=== PATIENT | female | born 1955 | race Caucasian/White ===

== ENCOUNTER 2016-02-18 | Outpatient (CLI) | payer MEDICAID | END 2016-02-18 07:18 | disposition critical access hospital (66) | DX: R07.89 Other chest pain (principal) | CPT/HCPCS: A0425; A0429 ==

== ENCOUNTER 2016-02-18 07:35 | Emergency (ER) | payer MEDICAID ==
[2016-02-18] MEDS ORDERED: POTASSIUM BICARB 25 MEQ TABLET PO STA (08:39)
[2016-02-18] MEDS ORDERED: POTASSIUM BICARB 25 MEQ TABLET PO ONE (08:42)
[2016-02-18] MEDS ORDERED: SODIUM CHLORIDE 0.9% 1,000 ML IV ONE (08:43)
== END 2016-02-18 12:56 | disposition home or self-care (01) ==
DX: E86.0 Dehydration (principal); Z95.0 Presence of cardiac pacemaker; I10 Essential (primary) hypertension; E11.9 Type 2 diabetes mellitus without complications; Z79.84 Long term (current) use of oral hypoglycemic drugs; J44.9 Chronic obstructive pulmonary disease, unspecified; J45.909 Unspecified asthma, uncomplicated; Z79.82 Long term (current) use of aspirin
CPT/HCPCS: 36415; 51701; 71020; 80053; 81001; 83690; 84484; 85025; 93005; 93010; 99284; A9270

== ENCOUNTER 2016-02-25 10:53 | Outpatient (CLI) | payer MEDICAID | END 2016-02-25 10:54 | disposition home or self-care (01) | DX: E11.9 Type 2 diabetes mellitus without complications (principal) ==

== ENCOUNTER 2016-02-29 10:57 | Emergency (ER) | payer MEDICAID ==
[2016-02-29] MEDS ORDERED: ALBUTEROL NEB 2.5 MG/3 ML INH STA (12:20)
[2016-02-29] MEDS ORDERED: predniSONE 20 MG TABLET PO STA (12:21)
[2016-02-29] MEDS ORDERED: predniSONE 20 MG TABLET ONE (12:21)
[2016-02-29] MEDS ORDERED: ALBUTEROL NEB 2.5 MG/3 ML INH ONE (12:41)
== END 2016-02-29 13:01 | disposition home or self-care (01) ==
DX: J45.901 Unspecified asthma with (acute) exacerbation (principal); J44.9 Chronic obstructive pulmonary disease, unspecified; I10 Essential (primary) hypertension; Z95.0 Presence of cardiac pacemaker; E11.9 Type 2 diabetes mellitus without complications; Z79.84 Long term (current) use of oral hypoglycemic drugs; Z79.82 Long term (current) use of aspirin
CPT/HCPCS: 94640; 99283; J7512; J7613

== ENCOUNTER 2016-07-19 19:45 | Outpatient (CLI) | payer MEDICAID | END 2016-07-19 19:46 | disposition EMS.NT | LOC: EMS 19:45 | PROVIDERS: ATTEND Surgery | DX: S01.511A Laceration without foreign body of lip, initial encounter (principal); W01.198A Fall on same level from slipping, tripping and stumbling with subsequent striking against other object, initial encounter; Y92.038 Other place in apartment as the place of occurrence of the external cause ==

== ENCOUNTER 2016-07-29 09:53 | Outpatient (CLI) | payer MEDICAID | END 2016-07-29 09:54 | disposition critical access hospital (66) | LOC: EMS 09:53 | PROVIDERS: ATTEND Surgery | DX: R07.9 Chest pain, unspecified (principal); R06.00 Dyspnea, unspecified | CPT/HCPCS: A0425; A0429 ==

== ENCOUNTER 2016-07-29 10:15 | Emergency (ER) | payer MEDICAID ==
[2016-07-29] MEDS ORDERED: ASPIRIN CHEW 81 MG TABLET PO STA (10:27)
[2016-07-29] MEDS ORDERED: MAG HYDROX/AL HYDROX/SIMETH 30 ML UDC PO STA (10:28)
[2016-07-29] MEDS ORDERED: PHENobarb/HYOSCY/ATROPINE/SCOP 5 ML SYRINGE PO STA (10:28)
[2016-07-29] MEDS ORDERED: LIDOCAINE VISCOUS 2% 15 ML UDC MM STA (10:28)
[2016-07-29] MEDS ORDERED: PHENobarb/HYOSCY/ATROPINE/SCOP 5 ML SYRINGE PO ONE (10:32)
[2016-07-29] MEDS ORDERED: LIDOCAINE VISCOUS 2% 15 ML UDC MM ONE (10:32)
--- NOTE | 2016-07-29 10:32 | ED Physician Documentation ---
PD HPI CHEST PAIN - Stated complaint Stated Complaint: CP - Chief complaint Chief Complaint: Cardiac - History obtained from History obtained from: Patient, EMS - History of Present Illness Timing - onset: Last night Quality: Pain Location: Right chest Worsened by: Inspiration Associated symptoms: Shortness of air, Nausea Similar symptoms before: Has not had sx before - Additional information Additional information: The patient is a 60-year-old female who arrives via ambulance complaining of right-sided chest pain. She fell 1 week ago, bruising her right breast. She presents now complaining of ongoing right-sided chest pain that has been worse since last night. The pain is worse with inspiration. She reports associated shortness of breath and nausea. She denies vomiting, cough, or fever. She denies history of similar symptoms in the past. Her past medical history is significant for pacer placement. Review of Systems Constitutional: reports: Fatigue. denies: Fever Nose: denies: Congestion Throat: denies: Sore throat Cardiac: reports: Chest pain / pressure. denies: Palpitations Respiratory: reports: Dyspnea. denies: Cough GI: reports: Nausea. denies: Abdominal Pain, Vomiting : denies: Dysuria Skin: denies: Rash Musculoskeletal: denies: Neck pain, Back pain Neurologic: denies: Focal weakness, Numbness, Headache PD PAST MEDICAL HISTORY - Past Medical History Cardiovascular: Hypertension, High cholesterol Respiratory: Asthma, COPD, Sleep apnea Neuro: Other Endocrine/Autoimmune: Type 2 diabetes GI: GERD, Chronic diarrhea : Incontinence HEENT: Chronic vision loss Psych: Depression, Anxiety, Panic attacks, Claustrophobia Musculoskeletal: Osteoarthritis Derm: None - Past Surgical History Past Surgical History: Yes General: Cholecystectomy, Colonoscopy Cardiovascular: Pacemaker - Present Medications Home Medications: Ambulatory Orders Medication Instructions Recorded Confirmed Aspirin [Aspir-Low] 1 tab PO DAILY 09/08/15 07/29/16 Estradiol 1 tab PO DAILY 09/08/15 07/29/16 Hydrochlorothiazide 0.5 tab PO DAILY 09/08/15 07/29/16 Pravastatin [Pravachol] 1 tab PO DAILY PM 09/08/15 07/29/16 buPROPion [Wellbutrin Sr] 1 tab PO DAILY 09/08/15 07/29/16 medroxyPROGESTERone [Provera] 1 tab PO DAILY 09/08/15 07/29/16 metFORMIN [Glucophage] 2 tab PO BID 09/08/15 07/29/16 Potassium Chloride [Micro-K] 20 meq PO DAILY 10/15/15 07/29/16 Albuterol Sulfate [Proventil Hfa 1 - 2 puffs IH Q4H PRN #1 02/29/16 07/29/16 Inhaler] hfa.[email or web address].[email or web address] predniSONE [Deltasone] 60 mg PO DAILY 5 Days 02/29/16 07/29/16 - Allergies Allergies/Adverse Reactions: Allergies Allergy/AdvReac Type Severity Reaction Status Date / Time No Known Drug Allergies Allergy Verified 07/29/16 10:21 - Social History Does the pt smoke?: No Smoking Status: Never smoker Does the pt drink ETOH?: No Does the pt have substance abuse?: No - Immunizations Immunizations are current?: Yes PD ED PE NORMAL - Vitals Vital signs reviewed: Yes (normal) - General General: Alert and oriented X 3, Well developed/nourished - HEENT HEENT: Atraumatic, EOMI - Neck Neck: No adenopathy, No JVD - Cardiac Cardiac: RRR, No murmur - Respiratory Respiratory: No respiratory distress, Clear bilaterally, Other (There is faint ecchymosis over the right breast. There is tenderness to palpation of the right anterior chest wall, reproducing her symptoms.) - Abdomen Abdomen: Soft, Other (Mild epigastric tenderness to palpation, without rebound or guarding.) - Back Back: No CVA TTP - Derm Derm: No rash - Extremities Extremities: No edema, No calf tenderness / cord - Neuro Neuro: Alert and oriented X 3, No motor deficit, Normal speech Results - Vitals Vitals: Oxygen O2 Source Room air - EKG (time done) 10:24 Rate: Rate (enter#) (78) Rhythm: NSR [place]: Normal Intervals: Normal [place] QRS: Normal Ischemia: Normal ST segments Compare to prior EKG: Unchanged from prior EKG (No significant change compared to prior tracing of 02/18/2016.) Computer interpretation: Agree with computer - Labs Labs: Laboratory Tests 07/29/16 07/29/16 07/29/16 10:25 10:25 10:25 WBC 10.4 RBC 4.24 Hgb 12.0 Hct 35.8 L MCV 84.5 MCH 28.4 MCHC 33.6 RDW 13.4 Plt Count 416 MPV 7.1 L Neut # 6.6 Lymph # 2.7 [place] # 0.7 Eos # 0.3 Baso # 0.1 Absolute Nucleated RBC 0.00 Nucleated RBCs 0.0 Sodium 138 Potassium 3.8 Chloride 99 L Carbon Dioxide 28 Anion Gap 11.0 BUN 17 Creatinine 1.0 Estimated GFR (MDRD) 57 L Glucose 179 H Calcium 9.2 Total Bilirubin 0.5 AST 19 ALT 18 Alkaline Phosphatase 96 Troponin I < 0.04 Total Protein 7.6 Albumin 3.8 Globulin 3.8 Albumin/Globulin Ratio 1.0 Lipase 34 - Rads (name of study) 1-view CXR Radiology: Prelim report reviewed, EMP read contemporaneously, See rad report ( No airspace disease evident.) PD MEDICAL DECISION MAKING - ED course Complexity details: reviewed old records, reviewed results, re-evaluated patient , considered differential, d/w patient ED course: The patient's presentation is most consistent with chest wall pain associated with falling, impacting her chest. Cardiac etiology was considered, but is less likely. Her electrocardiogram reveals no acute ischemic abnormalities, and troponin level is normal. Given the duration of her symptoms, I would expect troponin to be elevated if the pain was caused by cardiac ischemia. Gastroesophageal reflux was considered, given the mild epigastric tenderness to palpation. However given her overall clinical presentation, that is also a less likely etiology. Chest x-ray reveals no evidence of cardiopulmonary radiographic abnormality. Treatment in the emergency department included administration of 4 baby aspirin orally, and GI cocktail. The patient reported no significant change with the above treatment, and on repeat examination her right chest wall remains reproducibly tender to palpation. I discussed with her the expected course of injury, symptomatic treatment and outpatient follow-up, as well as potentially worrisome signs or symptoms that should prompt reevaluation in the emergency department. Departure - Departure Disposition: 01 Home, Self Care Clinical Impression: Chest wall pain Condition: Stable Instructions: ED Contusion Chest Wall Follow-Up: Aquilino Isabel MD [Primary Care Provider] - Comments: Use Tylenol if needed for pain. Follow up with your primary physician within one to 2 weeks. Call to schedule an appointment. Return to the emergency department if you develop increasing pain, shortness of breath, or otherwise worsening symptoms. Discharge Date/Time: 07/29/16 13:00
[2016-07-29] MEDS ORDERED: ASPIRIN CHEW 81 MG TABLET ONE (10:33)
[2016-07-29] MEDS ORDERED: MAG HYDROX/AL HYDROX/SIMETH 30 ML UDC ONE (10:33)
[2016-07-29 10:36] LABS: BASOPHILS # (AUTO) 0.1 10^3/uL (0.0-0.1); BASOPHILS % (AUTO) 1.3 %; EOSINOPHILS # (AUTO) 0.3 10^3/uL (0.0-0.7); EOSINOPHILS % (AUTO) 2.9 %; HCT - HEMATOCRIT 35.8 % (37.0-47.0); LYMPHOCYTES # (AUTO) 2.7 10^3/uL (1.5-3.5); LYMPHOCYTES % (AUTO) 26.3 %; MEAN CORPUSCULAR HEMOGLOBIN 28.4 pg (27.0-31.0); MEAN CORPUSCULAR HGB CONC 33.6 g/dL (32.0-36.0); MEAN CORPUSCULAR VOLUME 84.5 fL (81.0-99.0); MEAN PLATELET VOLUME 7.1 fL (7.9-10.8); MONOCYTES # (AUTO) 0.7 10^3/uL (0.0-1.0); MONOCYTES % (AUTO) 6.4 %; NEUTROPHILS # (AUTO) 6.6 10^3/uL (1.5-6.6); NEUTROPHILS % (AUTO) 63.1 %; RED BLOOD COUNT 4.24 10^6/uL (4.20-5.40); RED CELL DISTRIBUTION WIDTH 13.4 % (12.0-15.0); UNCORRECTED WHITE BLOOD COUNT 10.4 x10^3/uL; WHITE BLOOD COUNT 10.4 x10^3/uL (4.8-10.8)
[2016-07-29 10:50] LABS: BILIRUBIN,TOTAL 0.5 mg/dL (0.2-1.0); CALCIUM 9.2 mg/dL (8.5-10.3); POTASSIUM 3.8 mmol/L (3.5-5.0); TOTAL PROTEIN 7.6 g/dL (6.7-8.2)
--- NOTE | 2016-07-29 10:55 | XRAY Preliminary Report ---
Exam: XR Chest 1 View IMPRESSION: No airspace disease evident. [facility] SITE ID: [id number]
--- NOTE | 2016-07-29 10:57 | XRAY Report ---
EXAM: CHEST RADIOGRAPHY EXAM DATE: 07/29/2016 10:47 AM. CLINICAL HISTORY: Anterior chest pain. COMPARISON: 02/18/2016. TECHNIQUE: 1 view. FINDINGS: Lungs/Pleura: No focal opacities evident. No pleural effusion. No pneumothorax. Mediastinum: Within exam limitations, cardiomediastinal contour is normal. Other: Left subclavian pacemaker. IMPRESSION: No airspace disease evident. [facility] Referring Provider Line: [phone] SITE ID: [id number]
[2016-07-29 13:28] VITALS: BP 142/77
== END 2016-07-29 13:00 | disposition home or self-care (01) ==
LOC: EDUNIT# → ED 10:15
DX: R07.89 Other chest pain (principal); W19.XXXA Unspecified fall, initial encounter; K21.9 Gastro-esophageal reflux disease without esophagitis; Z95.0 Presence of cardiac pacemaker; I10 Essential (primary) hypertension; E11.9 Type 2 diabetes mellitus without complications; Z79.84 Long term (current) use of oral hypoglycemic drugs; J44.9 Chronic obstructive pulmonary disease, unspecified; Z79.82 Long term (current) use of aspirin
CPT/HCPCS: 36415; 71010; 80053; 83690; 84484; 85025; 93005; 99284; A9270

== ENCOUNTER 2017-01-27 08:04 | Outpatient (CLI) | payer MEDICAID ==
[2017-01-27 13:23] LABS: BUN - BLOOD UREA NITROGEN 18 mg/dL (6-20); CALCIUM 9.4 mg/dL (8.5-10.3); CARBON DIOXIDE - CO2 30 mmol/L (21-32); CHLORIDE 96 mmol/L (101-111); CHOL/HDL RATIO 5.6 (<4.4); CHOLESTEROL 284 mg/dL; CREATININE 0.9 mg/dL (0.4-1.0); GFR - MDRD 64 (>89); GLUCOSE 132 mg/dL (70-100); HDL CHOLESTEROL 51 mg/dL; LDL/HDL RATIO 3.6 (<4.4); POTASSIUM 3.4 mmol/L (3.5-5.0); SODIUM 137 mmol/L (135-145); TRIGLYCERIDES 257 mg/dL; VLDL CHOLESTEROL 51 mg/dL
== END 2017-01-27 08:05 | disposition home or self-care (01) ==
LOC: LAB.N 08:04
PROVIDERS: ATTEND Internal Medicine Cardiovascular Disease
DX: I10 Essential (primary) hypertension (principal); E78.5 Hyperlipidemia, unspecified
CPT/HCPCS: 36415; 80048; 80061

== ENCOUNTER 2017-04-25 08:44 | Outpatient (CLI) | payer MEDICAID ==
[2017-04-25 13:00] LABS: HEMOGLOBIN A1C 0.99 g/dL; HEMOGLOBIN A1C % 8.6 % (4.6-6.2)
[2017-04-25 13:10] LABS: CALCIUM 9.4 mg/dL (8.5-10.3); CREATININE 0.8 mg/dL (0.4-1.0)
== END 2017-04-25 08:45 | disposition home or self-care (01) ==
LOC: LAB.N 08:44
PROVIDERS: ATTEND Family Medicine
DX: E11.9 Type 2 diabetes mellitus without complications (principal)
CPT/HCPCS: 36415; 80048; 83036

== ENCOUNTER 2017-04-30 12:04 | Emergency (ER) | payer MEDICAID ==
[2017-04-30 12:49] LABS: ALBUMIN 4.2 g/dL (3.2-5.5); BILIRUBIN,TOTAL 0.4 mg/dL (0.2-1.0); CALCIUM 9.1 mg/dL (8.5-10.3); CREATININE 1.2 mg/dL (0.4-1.0); TOTAL PROTEIN 8.3 g/dL (6.7-8.2)
--- NOTE | 2017-04-30 12:55 | ED Physician Documentation ---
PD HPI CHEST PAIN - Stated complaint Stated Complaint: CP/N/DIFF BREATHING - Chief complaint Chief Complaint: Resp - History obtained from History obtained from: Patient - History of Present Illness Timing - onset: Other (The last 4 days she has had constant but increasing anterior chest pain that is nonradiating, it is associated with shortness of breath and nausea and dizziness. She denies any pedal edema or back pain. There is no cough.) Review of Systems Constitutional: denies: Fever, Chills Nose: denies: Rhinorrhea / runny nose, Congestion Throat: denies: Sore throat Cardiac: reports: Chest pain / pressure. denies: Palpitations, Pedal edema, Calf pain Respiratory: reports: Dyspnea. denies: Cough, Hemoptysis, Wheezing PD PAST MEDICAL HISTORY - Past Medical History Cardiovascular: Hypertension, High cholesterol Respiratory: Asthma, COPD, Sleep apnea Neuro: Other Endocrine/Autoimmune: Type 2 diabetes GI: GERD, Chronic diarrhea : Incontinence HEENT: Chronic vision loss Psych: Depression, Anxiety, Panic attacks, Claustrophobia Musculoskeletal: Osteoarthritis Derm: None - Past Surgical History Past Surgical History: Yes General: Cholecystectomy, Colonoscopy Cardiovascular: Pacemaker - Present Medications Home Medications: Ambulatory Orders Medication Instructions Recorded Confirmed Aspirin [Aspir-Low] 1 tab PO DAILY 09/08/15 07/29/16 Estradiol 1 tab PO DAILY 09/08/15 07/29/16 Pravastatin [Pravachol] 1 tab PO DAILY PM 09/08/15 07/29/16 buPROPion [Wellbutrin Sr] 1 tab PO DAILY 09/08/15 07/29/16 hydroCHLOROthiazide 0.5 tab PO DAILY 09/08/15 07/29/16 [Hydrochlorothiazide] medroxyPROGESTERone [Provera] 1 tab PO DAILY 09/08/15 07/29/16 metFORMIN [Glucophage] 2 tab PO BID 09/08/15 07/29/16 Potassium Chloride [Micro-K] 20 meq PO DAILY 10/15/15 07/29/16 Albuterol Sulfate [Proventil Hfa 1 - 2 puffs IH Q4H PRN #1 02/29/16 07/29/16 Inhaler] hfa.aer.ad predniSONE [Deltasone] 60 mg PO DAILY 5 Days tablet 02/29/16 07/29/16 Azithromycin [Zithromax] 250 mg PO DAILY #4 tablet 04/30/17 - Allergies Allergies/Adverse Reactions: Allergies Allergy/AdvReac Type Severity Reaction Status Date / Time No Known Drug Allergies Allergy Verified 04/30/17 12:13 - Living Situation Living Situation: reports: Alone - Social History Does the pt smoke?: No Smoking Status: Never smoker Does the pt drink ETOH?: No Does the pt have substance abuse?: No - Immunizations Immunizations are current?: Yes PD ED PE NORMAL - Vitals Vital signs reviewed: Yes - General General: Alert and oriented X 3, No acute distress - HEENT HEENT: PERRL, EOMI - Neck Neck: Supple, no meningeal sign, No bony TTP - Cardiac Cardiac: RRR, No murmur - Respiratory Respiratory: No respiratory distress, Clear bilaterally - Abdomen Abdomen: Soft, Non tender - Back Back: No CVA TTP, No spinal TTP - Derm Derm: No rash - Extremities Extremities: No edema, No calf tenderness / cord - Neuro Neuro: Alert and oriented X 3, Normal speech Results - Vitals Vitals: Vital Signs - 24 hr 04/30/17 04/30/17 12:10 14:21 Temperature 35.5 C L Heart Rate 97 90 Respiratory 16 18 Rate Blood Pressure 125/77 132/76 H O2 Saturation 100 97 Oxygen O2 Source Room air - EKG (time done) 1211 Rate: Rate (enter#) (97) Rhythm: NSR [place]: Normal Intervals: Normal [place] QRS: Normal Ischemia: Normal ST segments Compare to prior EKG: Unchanged from prior EKG (from 07/29/16) Computer interpretation: Agree with computer - Labs Labs: Laboratory Tests 04/30/17 04/30/17 04/30/17 12:30 12:30 13:05 WBC 11.8 H RBC 4.41 Hgb 12.7 Hct 37.4 MCV 84.9 MCH 28.7 MCHC 33.8 RDW 12.8 Plt Count 336 MPV 8.0 Neut # 8.3 H Lymph # 2.5 [place] # 0.9 Eos # 0.1 Baso # 0.1 Absolute Nucleated RBC 0.00 Nucleated RBC % 0.0 D-Dimer Sodium 133 L Potassium 3.5 Chloride 95 L Carbon Dioxide 25 Anion Gap 13.0 BUN 25 H Creatinine 1.2 H Estimated GFR (MDRD) 46 L Glucose 206 H Calcium 9.1 Total Bilirubin 0.4 AST 26 ALT 19 Alkaline Phosphatase 91 Troponin I < 0.04 Total Protein 8.3 H Albumin 4.2 Globulin 4.1 Albumin/Globulin Ratio 1.0 Lipase 23 04/30/17 13:05 WBC RBC Hgb Hct MCV MCH MCHC RDW Plt Count MPV Neut # Lymph # [place] # Eos # Baso # Absolute Nucleated RBC Nucleated RBC % D-Dimer 221.3 Sodium Potassium Chloride Carbon Dioxide Anion Gap BUN Creatinine Estimated GFR (MDRD) Glucose Calcium Total Bilirubin AST ALT Alkaline Phosphatase Troponin I Total Protein Albumin Globulin Albumin/Globulin Ratio Lipase - Rads (name of study) 1v chest Radiology: EMP read contemporaneously (1. Increased right hilar and superior parahilar opacity. Atelectasis or infiltrate involving right upper lobe? Mild increased vasc prominence.) PD MEDICAL DECISION MAKING - ED course ED course: 61-year-old woman with very atypical chest pain and trouble breathing that is most likely related to right upper lobe pneumonia seen on x-ray. Departure - Departure Disposition: 01 Home, Self Care Clinical Impression: Chest wall pain Pneumonia Qualifiers: Pneumonia type: due to unspecified organism Laterality: right Lung location: upper lobe of lung Qualified Code(s): J18.1 - Lobar pneumonia, unspecified organism Condition: Good Record reviewed to determine appropriate education?: Yes Instructions: Pneumonia Dc Prescriptions: Azithromycin [Zithromax] 250 mg PO DAILY #4 tablet Comments: Call your doctor to arrange a follow-up appointment, make the next available appointment. In the interim, return anytime if worse or if new symptoms develop. Your blood pressure was elevated today on check into the emergency department. This does not mean that you have hypertension, it is a common phenomenon to come to the emergency department and have elevated blood pressure. I recommend that you see your primary care physician within the week to have it rechecked when you are feeling better.
--- NOTE | 2017-04-30 13:02 | XRAY Report ---
EXAM: CHEST RADIOGRAPHY EXAM DATE: 04/30/2017 12:41 PM. CLINICAL HISTORY: Chest pain. COMPARISON: 02/18/2016. TECHNIQUE: 1 view. FINDINGS: Lungs/Pleura: Interval increase in right upper hilar and upper lobe medial opacity. No other focal co nsolidation. Pulmonary vascularity is slightly more prominent than on prior study without gross inter stitial edema. No airspace edema or pleural effusion. No pneumothorax. No mass. Mediastinum: Heart size upper limits normal. No adenopathy. Other: Left-sided pacemaker with intact pacing leads. IMPRESSION: 1. Increased right hilar and superior parahilar opacity. Atelectasis or infiltrate involving right up per lobe could've this appearance. 2. Mild interval increase in pulmonary vascular prominence. No gross interstitial or airspace edema. No pleural effusion. 3. No other significant interval change. [facility] Referring Provider Line: [phone] SITE ID: [id number]
--- NOTE | 2017-04-30 13:02 | XRAY Preliminary Report ---
Exam: XR CHEST 1 VIEW X-RAY IMPRESSION: 1. Increased right hilar and superior parahilar opacity. Atelectasis or infiltrate involving right up per lobe could've this appearance. 2. Mild interval increase in pulmonary vascular prominence. No gross interstitial or airspace edema. No pleural effusion. 3. No other significant interval change. [facility] SITE ID: [id number]
[2017-04-30 13:11] LABS: BASOPHILS # (AUTO) 0.1 10^3/uL (0.0-0.1); BASOPHILS % (AUTO) 0.4 %; EOSINOPHILS # (AUTO) 0.1 10^3/uL (0.0-0.7); HGB - HEMOGLOBIN 12.7 g/dL (12.0-16.0); LYMPHOCYTES # (AUTO) 2.5 10^3/uL (1.5-3.5); LYMPHOCYTES % (AUTO) 21.3 %; MEAN CORPUSCULAR HEMOGLOBIN 28.7 pg (27.0-31.0); MEAN CORPUSCULAR HGB CONC 33.8 g/dL (32.0-36.0); MEAN CORPUSCULAR VOLUME 84.9 fL (81.0-99.0); MONOCYTES # (AUTO) 0.9 10^3/uL (0.0-1.0); MONOCYTES % (AUTO) 7.2 %; NEUTROPHILS # (AUTO) 8.3 10^3/uL (1.5-6.6); NEUTROPHILS % (AUTO) 70.1 %; PLT - PLATELET COUNT 336 10^3/uL (130-450); RED BLOOD COUNT 4.41 10^6/uL (4.20-5.40); RED CELL DISTRIBUTION WIDTH 12.8 % (12.0-15.0); WHITE BLOOD COUNT 11.8 x10^3/uL (4.8-10.8)
[2017-04-30] MEDS ORDERED: AZITHROMYCIN 250 MG TABLET PO STA (14:23)
[2017-04-30 14:48] VITALS: BP 129/79
== END 2017-04-30 14:50 | disposition home or self-care (01) ==
LOC: ED 12:04
DX: R07.89 Other chest pain (principal); I10 Essential (primary) hypertension; E78.00 Pure hypercholesterolemia, unspecified; E11.9 Type 2 diabetes mellitus without complications; Z79.84 Long term (current) use of oral hypoglycemic drugs; Z95.0 Presence of cardiac pacemaker; Z79.82 Long term (current) use of aspirin
CPT/HCPCS: 36415; 71045; 80053; 83690; 84484; 85025; 85379; 93005; 99283; 99284; A9270

== ENCOUNTER 2018-01-19 07:52 | Outpatient (CLI) | payer MEDICAID ==
[2018-01-19 13:18] LABS: BASOPHILS # (AUTO) 0.1 10^3/uL (0.0-0.1); BASOPHILS % (AUTO) 0.7 %; EOSINOPHILS # (AUTO) 0.3 10^3/uL (0.0-0.7); EOSINOPHILS % (AUTO) 2.5 %; HGB - HEMOGLOBIN 12.7 g/dL (12.0-16.0); LYMPHOCYTES # (AUTO) 2.6 10^3/uL (1.5-3.5); MEAN CORPUSCULAR HEMOGLOBIN 29.3 pg (27.0-31.0); MEAN CORPUSCULAR HGB CONC 34.3 g/dL (32.0-36.0); MEAN CORPUSCULAR VOLUME 85.6 fL (81.0-99.0); MEAN PLATELET VOLUME 8.2 fL (7.9-10.8); MONOCYTES # (AUTO) 0.8 10^3/uL (0.0-1.0); MONOCYTES % (AUTO) 8.4 %; NEUTROPHILS # (AUTO) 6.3 10^3/uL (1.5-6.6); NEUTROPHILS % (AUTO) 62.4 %; PLT - PLATELET COUNT 408 10^3/uL (130-450); RED BLOOD COUNT 4.34 10^6/uL (4.20-5.40)
[2018-01-19 13:54] LABS: HB2 TOTAL 13.1 g/dL; HEMOGLOBIN A1C 0.73 g/dL; HEMOGLOBIN A1C % 7.3 % (4.6-6.2)
[2018-01-19 14:10] LABS: ALBUMIN 4.1 g/dL (3.2-5.5); ALKALINE PHOSPHATASE 104 IU/L (42-121); ALT ALANINE AMINOTRANSFERASE 20 IU/L (10-60); AST ASPARTATE AMINOTRANSFERASE 17 IU/L (10-42); BILIRUBIN,TOTAL 0.4 mg/dL (0.2-1.0); BUN - BLOOD UREA NITROGEN 13 mg/dL (6-20); CALCIUM 9.6 mg/dL (8.5-10.3); CARBON DIOXIDE - CO2 29 mmol/L (21-32); CHLORIDE 99 mmol/L (101-111); CHOL/HDL RATIO 4.8 (<4.4); CHOLESTEROL 258 mg/dL; GFR - MDRD 56 (>89); GLUCOSE 152 mg/dL (70-100); HDL CHOLESTEROL 54 mg/dL; LDL CHOLESTEROL,CALCULATED 131 mg/dL; LDL/HDL RATIO 2.4 (<4.4); SODIUM 139 mmol/L (135-145); TOTAL PROTEIN 8.1 g/dL (6.7-8.2); VLDL CHOLESTEROL 73 mg/dL
== END 2018-01-19 23:59 | disposition home or self-care (01) ==
LOC: LAB.N 07:52
PROVIDERS: ATTEND Family Medicine
DX: E78.5 Hyperlipidemia, unspecified (principal); I10 Essential (primary) hypertension; E11.9 Type 2 diabetes mellitus without complications; E55.9 Vitamin D deficiency, unspecified
CPT/HCPCS: 36415; 80053; 80061; 82306; 83036; 83721; 85025

== ENCOUNTER 2018-04-08 08:53 | Observation (INO) | payer MEDICAID ==
[2018-04-08] MEDS ORDERED: SODIUM CHLORIDE 0.9% 1,000 ML IV ONE (09:34)
[2018-04-08] MEDS ORDERED: DEXTROSE 50% ABBOJECT 25 GM/50 ML SYRINGE IVP STA ×4 (09:34→14:54)
--- NOTE | 2018-04-08 09:38 | ED Physician Documentation ---
PD HPI ALTERED MENTAL STATUS - Stated complaint Stated Complaint: AMS - Chief complaint Chief Complaint: Neuro - History obtained from History obtained from: Patient, Family (her son checked on her today and noted that she seemed confused and generally weak. Patient said she had not felt well the past several days and had not eaten well. Son had not seen her for about a week as he was busy at work.) - History of Present Illness Timing - onset: How many days ago (several) Timing - duration: Days (several) Timing - details: Gradual onset (The patient states she has not felt well for the last several days with general malaise, nausea, chills and less appetite. She states she had not eaten much. She states there was not much food in the house as well. She typically does her own cooking and shopping. Her son lives in the area but does not check on her daily. He had not seen her for about a week. He saw her today and noted that she was confused and had general weakness in the house looked unkempt.) Quality / character: Less responsive, Confused Associated symptoms: General weakness, Other (less appatite). No: Fever, Headache, Stiff neck, Dyspnea Contributing factors: Diabetic, Recent illness (She has not felt well for the last several days with myalgias and fatigue. She denies fevers per se but has felt chilled. She has had some nausea and less appetite without any vomiting. Some loose stool but no significant diarrhea. She states she has not felt hu ngry for several days and is eating less and had less fluids. She had still taken her medications.). No: Anticoagulated, Recent med change Basline status: Alert and oriented X 3, Ambulatory Similar symptoms before: Has not had sx before Recently seen: Not recently seen Review of Systems Constitutional: reports: Chills, Myalgias, Fatigue, Other (She had apparently fallen yesterday and has some abrasion on her left hand. She denies any headache or head injury.). denies: Fever Nose: denies: Rhinorrhea / runny nose, Congestion Throat: denies: Sore throat GI: reports: Nausea, Diarrhea (mild). denies: Vomiting : denies: Dysuria, Frequency Skin: denies: Rash, Lesions Musculoskeletal: denies: Extremity pain Neurologic: reports: Generalized weakness. denies: Focal weakness, Numbness, Near syncope, Headache PD PAST MEDICAL HISTORY - Past Medical History Cardiovascular: Hypertension, High cholesterol Respiratory: Asthma, COPD, Sleep apnea Endocrine/Autoimmune: Type 2 diabetes GI: GERD, Chronic diarrhea : Incontinence HEENT: Chronic vision loss Psych: Depression, Anxiety, Panic attacks, Claustrophobia Musculoskeletal: Osteoarthritis Derm: None - Past Surgical History Past Surgical History: Yes General: Cholecystectomy, Colonoscopy Cardiovascular: Pacemaker - Present Medications Home Medications: Ambulatory Orders Medication Instructions Recorded Confirmed Aspirin [Aspir-Low] 81 mg PO DAILY 09/08/15 04/08/18 Pravastatin [Pravachol] 40 mg PO QPM 09/08/15 04/08/18 buPROPion [Wellbutrin Sr] 150 mg PO BID 09/08/15 04/08/18 metFORMIN [Glucophage] 1,000 mg PO BIDWM 09/08/15 04/08/18 Potassium Chloride [Micro-K] 10 meq PO DAILY 10/15/15 04/08/18 Albuterol Sulfate [Proventil Hfa 2 puffs INH Q4H PRN 04/08/18 04/08/18 Inhaler] Venlafaxine HCl [Venlafaxine HCl 150 mg PO DAILY 04/08/18 04/08/18 ER] hydroCHLOROthiazide 25 mg PO DAILY 04/08/18 04/08/18 [Hydrochlorothiazide] - Allergies Allergies/Adverse Reactions: Allergies Allergy/AdvReac Type Severity Reaction Status Date / Time No Known Drug Allergies Allergy Verified 04/08/18 09:06 - Social History Does the pt smoke?: No Smoking Status: Never smoker Does the pt drink ETOH?: No Does the pt have substance abuse?: No - Immunizations Immunizations are current?: Yes PD ED PE NORMAL - Vitals Vital signs reviewed: Yes - General General: Alert and oriented X 3, Well developed/nourished, Other (Somewhat slow to answer questions. Slightly pale.) - HEENT HEENT: Atraumatic, Ears normal, Pharynx benign. No: Moist mucous membranes - Neck Neck: Supple, no meningeal sign, No adenopathy - Cardiac Cardiac: RRR, No murmur - Respiratory Respiratory: Clear bilaterally - Abdomen Abdomen: Normal bowel sounds, Soft, Non tender, Non distended - Female Female : Deferred - Rectal Rectal: Deferred - Back Back: No CVA TTP - Derm Derm: Warm and dry. No: Normal color (pale) - Extremities Extremities: No tenderness to palpate, Normal ROM s pain, No edema, No calf tenderness / cord, Other (The left hand has a couple of superficial abrasions with mild dried blood. No bony deformity.) - Neuro Neuro: Alert and oriented X 3, No motor deficit, Normal speech - Psych Psych: Normal mood Results - Vitals Vitals: Vital Signs - 24 hr 04/08/18 04/08/18 04/08/18 09:03 09:31 12:25 Temperature 35.7 C L 36.4 C L Heart Rate 65 68 87 Respiratory 14 14 16 Rate Blood Pressure 190/89 H 180/85 H 147/78 H O2 Saturation 97 99 99 04/08/18 14:44 Temperature 36.4 C L Heart Rate 94 Respiratory 16 Rate Blood Pressure 121/80 O2 Saturation 99 Oxygen O2 Source Room air - Labs Labs: Laboratory Tests 04/08/18 04/08/18 04/08/18 09:14 10:15 10:15 WBC 8.9 RBC 3.40 L Hgb 9.7 L Hct 28.8 L MCV 84.8 MCH 28.6 MCHC 33.7 RDW 13.8 Plt Count 315 MPV 7.6 L Neut # (Auto) 7.6 H Lymph # (Auto) 0.9 L [place] # (Auto) 0.3 Eos # (Auto) 0.0 Baso # (Auto) 0.1 Absolute Nucleated RBC 0.00 Nucleated RBC % 0.0 Sodium Potassium Chloride Carbon Dioxide Anion Gap BUN Creatinine Estimated GFR (MDRD) Glucose POC Whole Bld Glucose 30 L* Glycated Hemoglobin 7.9 H Estim Average Glucose 180 H Lactic Acid Calcium Magnesium Total Bilirubin AST ALT Alkaline Phosphatase Troponin I Total Protein Albumin Globulin Albumin/Globulin Ratio Lipase Urine Color Urine Clarity Urine pH Ur Specific [place] Urine Protein Urine Glucose (UA) Urine Ketones Urine Occult Blood Urine Nitrite Urine Bilirubin Urine Urobilinogen Ur Leukocyte Esterase Ur Microscopic Review Urine Culture Comments Influenza A (Rapid) Influenza B (Rapid) 04/08/18 04/08/18 04/08/18 10:29 10:29 10:29 WBC RBC Hgb Hct MCV MCH MCHC RDW Plt Count MPV Neut # (Auto) Lymph # (Auto) [place] # (Auto) Eos # (Auto) Baso # (Auto) Absolute Nucleated RBC Nucleated RBC % Sodium 135 Potassium 3.9 Chloride 96 L Carbon Dioxide 29 Anion Gap 10.0 BUN 10 Creatinine 0.9 Estimated GFR (MDRD) 63 L Glucose 115 H POC Whole Bld Glucose Glycated Hemoglobin Estim Average Glucose Lactic Acid 1.5 Calcium 9.5 Magnesium 1.6 L Total Bilirubin 0.5 AST 24 ALT 22 Alkaline Phosphatase 83 Troponin I < 0.04 Total Protein 7.6 Albumin 3.8 Globulin 3.8 Albumin/Globulin Ratio 1.0 Lipase 52 H Urine Color Urine Clarity Urine pH Ur Specific [place] Urine Protein Urine Glucose (UA) Urine Ketones Urine Occult Blood Urine Nitrite Urine Bilirubin Urine Urobilinogen Ur Leukocyte Esterase Ur Microscopic Review Urine Culture Comments Influenza A (Rapid) Influenza B (Rapid) 04/08/18 04/08/18 04/08/18 10:35 10:49 11:29 WBC RBC Hgb Hct MCV MCH MCHC RDW Plt Count MPV Neut # (Auto) Lymph # (Auto) [place] # (Auto) Eos # (Auto) Baso # (Auto) Absolute Nucleated RBC Nucleated RBC % Sodium Potassium Chloride Carbon Dioxide Anion Gap BUN Creatinine Estimated GFR (MDRD) Glucose POC Whole Bld Glucose 57 L* Glycated Hemoglobin Estim Average Glucose Lactic Acid Calcium Magnesium Total Bilirubin AST ALT Alkaline Phosphatase Troponin I Total Protein Albumin Globulin Albumin/Globulin Ratio Lipase Urine Color YELLOW Urine Clarity CLEAR Urine pH 6.5 Ur Specific [place] 1.010 Urine Protein NEGATIVE Urine Glucose (UA) NEGATIVE Urine Ketones NEGATIVE Urine Occult Blood TRACE-INTA Urine Nitrite NEGATIVE Urine Bilirubin NEGATIVE Urine Urobilinogen 0.2 (NORMAL) Ur Leukocyte Esterase NEGATIVE Ur Microscopic Review NOT INDICATED Urine Culture Comments NOT INDICATED Influenza A (Rapid) Negative Influenza B (Rapid) Negative 04/08/18 04/08/18 04/08/18 12:57 13:01 13:30 WBC RBC Hgb Hct MCV MCH MCHC RDW Plt Count MPV Neut # (Auto) Lymph # (Auto) [place] # (Auto) Eos # (Auto) Baso # (Auto) Absolute Nucleated RBC Nucleated RBC % Sodium Potassium Chloride Carbon Dioxide Anion Gap BUN Creatinine Estimated GFR (MDRD) Glucose POC Whole Bld Glucose 46 L* 45 L* 69 L Glycated Hemoglobin Estim Average Glucose Lactic Acid Calcium Magnesium Total Bilirubin AST ALT Alkaline Phosphatase Troponin I Total Protein Albumin Globulin Albumin/Globulin Ratio Lipase Urine Color Urine Clarity Urine pH Ur Specific [place] Urine Protein Urine Glucose (UA) Urine Ketones Urine Occult Blood Urine Nitrite Urine Bilirubin Urine Urobilinogen Ur Leukocyte Esterase Ur Microscopic Review Urine Culture Comments Influenza A (Rapid) Influenza B (Rapid) 04/08/18 04/08/18 14:48 14:49 WBC RBC Hgb Hct MCV MCH MCHC RDW Plt Count MPV Neut # (Auto) Lymph # (Auto) [place] # (Auto) Eos # (Auto) Baso # (Auto) Absolute Nucleated RBC Nucleated RBC % Sodium Potassium Chloride Carbon Dioxide Anion Gap BUN Creatinine Estimated GFR (MDRD) Glucose POC Whole Bld Glucose 40 L* 46 L* Glycated Hemoglobin Estim Average Glucose Lactic Acid Calcium Magnesium Total Bilirubin AST ALT Alkaline Phosphatase Troponin I Total Protein Albumin Globulin Albumin/Globulin Ratio Lipase Urine Color Urine Clarity Urine pH Ur Specific [place] Urine Protein Urine Glucose (UA) Urine Ketones Urine Occult Blood Urine Nitrite Urine Bilirubin Urine Urobilinogen Ur Leukocyte Esterase Ur Microscopic Review Urine Culture Comments Influenza A (Rapid) Influenza B (Rapid) PD MEDICAL DECISION MAKING - ED course Complexity details: re-evaluated patient (The patient is feeling better and looks much improved and more alert. However despite having sandwich juice and crackers her blood sugar drops down again into the 40s. She is still feeling okay with it and she is encouraged to eat another sandwich and were given another dose of D50. I rechecked her blister pack and it does say metformin. Not sure why her sugars not maintaining up but it is still going low at times and I think she needs a more sustained evaluation of her sugar trend to ensure it stays up. She does sound like a viral type illness and so that may be just increasing her utilization and metabolism. There is no obvious signs of sepsis or focal bacterial infections. I will talk with the hospitalist to see if we can have her in the hospital. I have started a D10 IV infusion and will encourage her to keep eating.), considered differential (Consider the possibility of just a viral illness with her recent symptoms and less food intake. Her blood sugar initially is low and she is given some orally and IV. She is given IV fluids as well for likely dehydration. She had an apparent fall in the last couple of days with an abrasion on her hand. She denies hitting her head but we did do a CT of her head to ensure no bleeding. This was normal. Chest x-ray and urine test did not show signs of infection. Her lactate is normal. I have no obvious focal bacterial infection. There is no signs of sepsis. She is only on metformin and not on any sulfonylureas nor insulin. However she is not maintaining her sugars despite IV dosing and food of sandwiches juice crackers and I believe some cheese. She has had a couple of centimeters which is now and still her blood sugars are drifting back down to 49. She is much more alert when her sugars are high. It does seem to be blood sugar related though not sure why she is not maintaining it. At this point I think she needs to be in the hospital for further maintenance of her blood sugars along with hydration and nutrition. I presume she has a viral type illness though her flu test is negative.) Departure - Departure Disposition: ED Place in Observation Clinical Impression: Hypoglycemia, Upper respiratory infection Altered mental status Qualifiers: Altered mental status type: unspecified Qualified Code(s): R41.82 - Altered mental status, unspecified Condition: Stable Record reviewed to determine appropriate education?: Yes Discharge Date/Time: 04/08/18 15:36
[2018-04-08 10:26] LABS: BASOPHILS # (AUTO) 0.1 10^3/uL (0.0-0.1); BASOPHILS % (AUTO) 0.6 %; EOSINOPHILS % (AUTO) 0.2 %; HGB - HEMOGLOBIN 9.7 g/dL (12.0-16.0); LYMPHOCYTES # (AUTO) 0.9 10^3/uL (1.5-3.5); LYMPHOCYTES % (AUTO) 10.6 %; MEAN CORPUSCULAR HEMOGLOBIN 28.6 pg (27.0-31.0); MEAN CORPUSCULAR HGB CONC 33.7 g/dL (32.0-36.0); MEAN CORPUSCULAR VOLUME 84.8 fL (81.0-99.0); MEAN PLATELET VOLUME 7.6 fL (7.9-10.8); MONOCYTES # (AUTO) 0.3 10^3/uL (0.0-1.0); MONOCYTES % (AUTO) 3.2 %; NEUTROPHILS # (AUTO) 7.6 10^3/uL (1.5-6.6); NEUTROPHILS % (AUTO) 85.4 %; PLT - PLATELET COUNT 315 10^3/uL (130-450); RED CELL DISTRIBUTION WIDTH 13.8 % (12.0-15.0); WHITE BLOOD COUNT 8.9 x10^3/uL (4.8-10.8)
[2018-04-08 10:47] LABS: ALBUMIN 3.8 g/dL (3.2-5.5); BILIRUBIN,TOTAL 0.5 mg/dL (0.2-1.0); CALCIUM 9.5 mg/dL (8.5-10.3); CREATININE 0.9 mg/dL (0.4-1.0); MAGNESIUM 1.6 mg/dL (1.7-2.8); TOTAL PROTEIN 7.6 g/dL (6.7-8.2)
--- NOTE | 2018-04-08 11:27 | XRAY Report ---
Reason: recent cough and congestion Procedure Date: 04/08/2018 Accession Number: [id number] / [id number] Procedure: XR - Chest 2 View X-Ray CPT Code: 50500 FULL RESULT: EXAM: CHEST RADIOGRAPHY EXAM DATE: 04/08/2018 10:45 AM. CLINICAL HISTORY: Recent cough and congestion. COMPARISON: 04/30/2017. TECHNIQUE: 2 views. FINDINGS: Lungs/Pleura: No focal opacities evident. No convincing right suprahilar airspace opacity. No interstitial abnormality or peribronchial cuffing. No pleural effusion. No pneumothorax. Normal volumes. Mediastinum: Heart and mediastinal contours are unremarkable. Dual chamber pacemaker electrodes, as before. Other: Cholecystectomy clips. IMPRESSION: Negative chest. Lungs are clear. RADIA
[2018-04-08 11:39] LABS: BILIRUBIN,URINE NEGATIVE (NEGATIVE); GLUCOSE, URINE (UA) NEGATIVE (NEGATIVE); KETONES,URINE (UA) NEGATIVE (NEGATIVE); LEUKOCYTE ESTERASE, URINE NEGATIVE (NEGATIVE); NITRITE,URINE NEGATIVE (NEGATIVE); OCCULT BLOOD,URINE TRACE-INTA (NEGATIVE); PH,URINE 6.5 PH (5.0-7.5); PROTEIN,URINE NEGATIVE (NEGATIVE); UROBILINOGEN,URINE 0.2 (NORMAL) E.U./dL (NORMAL)
[2018-04-08 11:42] LABS: CLARITY,URINE CLEAR (CLEAR)
--- NOTE | 2018-04-08 12:31 | CT Report ---
Reason: confused and recent fall Procedure Date: 04/08/2018 Accession Number: [id number] / [id number] Procedure: CT - HEAD WO CPT Code: FULL RESULT: EXAM: CT HEAD EXAM DATE: 04/08/2018 10:48 AM. CLINICAL HISTORY: Confused and recent fall. COMPARISON: None. TECHNIQUE: Multiaxial CT images were obtained from the foramen magnum to the vertex. Reformats: Coronal and sagittal.. IV contrast: None. In accordance with CT protocol optimization, one or more of the following dose reduction techniques were utilized for this exam: automated exposure control, adjustment of mA and/or KV based on patient size, or use of iterative reconstructive technique. FINDINGS: Parenchyma: No intraparenchymal hemorrhage. No evidence of mass, midline shift, or CT findings of acute infarction. Souza-white differentiation is distinct. Diffuse chronic microangiopathic white matter changes are evident. Extraaxial Spaces: Normal for age. No subdural or epidural collections identified. Ventricles: The ventricles and cortical sulci are enlarged, consistent with age-related tissue loss. Sinuses and orbits: There is a mucosal retention cyst or polyp in the partially visualized right maxillary sinus. Otherwise, imaged paranasal sinuses, orbits, and mastoids show no significant abnormality. Bones: No evidence of fracture or calvarial defect. Hyperostosis frontalis is present. Other: None. IMPRESSION: 1. No intracranial hemorrhage, mass-effect, or CT evidence of acute infarct. 2. Generalized age-related cortical atrophic changes. RADIA
[2018-04-08] MEDS ORDERED: DEXTROSE 10% 1,000 ML IV SCH (14:00)
[2018-04-08] MEDS ORDERED: DEXTROSE 10% 1,000 ML IV STA (14:54)
[2018-04-08] MEDS ORDERED: SODIUM CHLORIDE FLUSH 0.9% 10 ML SYRINGE IVP PRN (14:58)
[2018-04-08] MEDS ORDERED: DEXTROSE 50% ABBOJECT 25 GM/50 ML SYRINGE IVP PRN (14:58)
--- NOTE | 2018-04-08 15:24 | HISTORY & PHYSICAL EXAMINATION ---
Chief Complaint - Chief Complaint Chief Complaint: hypoglycemia with altered mental status History of Present Illness - Admitted From Admitted From:: [facility] ER - History Obtained From Records Reviewed: Yes History obtained from: patient, patient's brother Dano and health record Exam Limitations: None - History of Present Illness HPI Comment/Other: Patient is a 62 year old female with a past medical history significant for hypertension, hyperlipidemia, KARY, T2DM on metformin, heart block s/p pacemaker placement in 2015 and depression to presented to the [facility] ER with complaint of altered mental status. She is accompanied by her brother Dano. The patient normally see'cruz Matson on Sundays to spend the day together and for the patient to complete her laundry. He reports that she is normally waiting outside when he arrives, but this morning she was not outside when he arrived. He went to her apartment and the patient came out 'not dressed normally' and she was confused. The patient reports that she had been bumping into things and falling down. She denies hitting her head or losing consciousness. The last time someone else saw her was on Monday, by her caregiver Kelley, and per report, the patient was not confused at that time. She denies any changes in her medications or recent illness. She does take over the counter antihistamine and antacid in addition to her prescribed medications. She received medication packs for the month, a pack for the morning and a pack for the afternoon. She takes one pack at 7 am, and the other pack at 2pm. She states she has been doing this for the last 4 years. She reports being more tired than normal. She reports being a night owl and will sleep during the day. Yesterday, she also reports having large sun spots in bilateral eyes. She denies headache, dizziness, blurry vision. She eats frozen meals at home, and consumes roughly 3-4 meals a day. She does not check her blood sugars at home often, the last time being over a month. She did not check her blood sugar prior to coming to the hospital today. She has a history of low blood sugar, but is unable to give further details. Work up in the ER was notable for a blood sugar of 30. She was given D50. CT head was completed without acute changes. On her BMP, glucose was 115. In the ER she was started on a D10 infusion. At the time of my evaluation, the D10 infusion had not yet been started. She was sitting on the ER stretcher completing a crossword puzzle. Her brother reports that her mentation has improved significantly since arrival to the ER. She will be admitted to the hospital for observation for hypoglycemia. She wishes to be a full code. History - Past Medical History Cardiovascular: reports: Hypertension, High cholesterol, Arrhythmia (s/p pacemaker) Respiratory: reports: Asthma, COPD, Sleep apnea Endocrine/Autoimmune: reports: Type 2 diabetes GI: reports: GERD, Chronic diarrhea : reports: Incontinence HEENT: reports: Chronic vision loss Psych: reports: Depression, Anxiety, Panic attacks, Claustrophobia Musculoskeletal: reports: Osteoarthritis Derm: reports: None MRSA Hx?: No - Past Surgical History General: reports: Cholecystectomy, Colonoscopy Cardiovascular: reports: Pacemaker - Family & Social History Family History: Brother: Alive and Well Living arrangement: At home Living Situation: Alone, With caregiver(s) (caregiver support) Social History Notes: Patient is developementally delayed. She lives alone in an apartment that she has lived in since 1991. She has caregiving support and support from her brother Dano, who she sees once a week on Sundays. She does not drive. She is engaged in the community with activities throughout the week. She enjoys doing crossword puzzles. - Substance History Use: Uses substance without health or social issues: NONE - POLST Patient has POLST: No Meds/Allgy - Home Medications Home Medications: Ambulatory Orders Medication Instructions Recorded Confirmed Aspirin [Aspir-Low] 81 mg PO DAILY 09/08/15 04/08/18 Pravastatin [Pravachol] 40 mg PO QPM 09/08/15 04/08/18 buPROPion [Wellbutrin Sr] 150 mg PO BID 09/08/15 04/08/18 metFORMIN [Glucophage] 1,000 mg PO BIDWM 09/08/15 04/08/18 Potassium Chloride [Micro-K] 10 meq PO DAILY 10/15/15 04/08/18 Albuterol Sulfate [Proventil Hfa 2 puffs INH Q4H PRN 04/08/18 04/08/18 Inhaler] Venlafaxine HCl [Venlafaxine HCl 150 mg PO DAILY 03/03/19 03/03/19 ER] hydroCHLOROthiazide 25 mg PO DAILY 04/08/18 04/08/18 [Hydrochlorothiazide] - Allergies Allergies/Adverse Reactions: Allergies Allergy/AdvReac Type Severity Reaction Status Date / Time No Known Drug Allergies Allergy Verified 04/08/18 09:06 Review of Systems - Constitutional Constitutional: reports: Weakness. denies: Fatigue, Fever, Chills, Weight gain, Weight loss - Eyes Eyes: reports: Spots in vision (reports 'large sun spots' bilaterally yesterday while in apartment, no other symptoms occurred) - Ears, Nose & Throat Ears, Nose & Throat: denies: Ear pain, Hearing loss, Vertigo - Cardiovascular Cariovascular: denies: Irregular heart rate, Palpitations, Chest pain, Syncope, Exertional dyspnea, Decr. exercise tolerance - Respiratory Respiratory: denies: Cough, Sputum production, Wheezing - Gastrointestinal Gastrointestinal: denies: Constipation, Diarrhea, Nausea, Vomiting - Genitourinary Genitourinary: denies: Dysuria, Frequency, Urgency - Musculoskeletal Musculoskeletal: denies: Back pain - Neurological Neurological: reports: Memory problems. denies: General weakness, Headache, Dizziness, Abnormal gait, Slurred speech - Psychiatric Psychiatric: denies: Depression, Anxiety - All Other Systems All Other Systems: reports: Reviewed and negative Prior Level of Functionality: Patient is independent. Exam - Vital Signs Reviewed Vital Signs: Yes Vital Signs: Vital Signs x48h Temp Pulse Resp BP Pulse Ox 04/08/18 14:44 36.4 C L 94 16 121/80 99 04/08/18 12:25 36.4 C L 87 16 147/78 H 99 04/08/18 09:31 68 14 180/85 H 99 04/08/18 09:03 35.7 C L 65 14 190/89 H 97 - Physical Exam General Appearance: positive: No acute distress, Alert Eyes Bilateral: positive: Normal inspection, PERRL, EOMI ENT: positive: ENT inspection nml, Pharynx nml, No signs of dehydration, Other (poor dentition) Neck: positive: Nml inspection, Trachea midline Respiratory: positive: Chest non-tender, No respiratory distress, Breath sounds nml. negative: Wheezes, Rales, Rhonchi Cardiovascular: positive: Regular rate & rhythm, No murmur, No gallop Peripheral Pulses: positive: 2+ Abdomen: positive: Non-tender, No organomegaly, Nml bowel sounds, No distention Skin: positive: Warm, Dry Extremities: positive: Non-tender, Full ROM, Nml appearance, No pedal edema Neurologic/Psychiatric: positive: Oriented x3, CN's nml (2-12), Motor nml, Sensation nml, Mood/affect nml Conclusion/Plan - Problem List (1) Diabetes mellitus Conclusion/Plan: Patient reports that she has been taking metformin as prescribed at 0700 and 1400. She has not had any medication changes. She has not seen her primary care provider in the last 6 months, since her provider has retired and she has not established with another provider. She has her medications in a dispensed pack and reports that she hasn't doubled up on any days. She does not check her blood sugars regularly at home, the last time she checked her blood sugar was roughly a month ago. Blood sugar in the ER on presentation was 30. She was given multiple amps of D50. She ate a turkey sandwich in the ER. Prior to that she had not eaten today. She reports eating 3-4 times a day, usually frozen meals. Has not skipped any meals recently. In the ER, she was started on a D10 infusion. This [facility]. She has had episodes of hypoglycemia in the past, but her blood sugars went up without needing to seek care. Plan: admit for observation hold metformin obtain a HgbA1c. check blood sugar q2hrs Once her D10 infusion stops at 2000, check her blood sugar 15 minutes after and then every 30-60 minutes until her blood sugars are stable for at least 4 hours. Qualifiers: Diabetes mellitus type: type 2 Diabetes mellitus penitentiary insulin use: without terminal manager use Diabetes mellitus complication status: with hypoglycemia Diabetes mellitus complication detail: without coma Qualified Code(s): E11.649 - Type 2 diabetes mellitus with hypoglycemia without coma (2) Altered mental status Conclusion/Plan: Patient presented to the ER with confusion. Per report, she was normal on . Patient reports bumping into things at home. Her brother notes that her mentation has drastically improved during their time in the ER. She is no longer altered and able to give history and is able to work on her crossword puzzle. Will monitor neuro status. Qualifiers: Altered mental status type: unspecified Qualified Code(s): R41.82 - Altered mental status, unspecified (3) Depression Conclusion/Plan: stable. continue home medications (4) Hypertension Conclusion/Plan: Patient was hypertensive in the ER. Her sBP is now 120. Will hold her hctz during hospitalization. Qualifiers: Hypertension type: essential hypertension Qualified Code(s): I10 - Essential (primary) hypertension (5) Hypomagnesemia Conclusion/Plan: Magnesium level 1.5. Replace with 2 gm IV magnesium. Follow-up level in the morning. - Lab Results Fish Bones: 04/08/18 10:15 04/08/18 10:29 - Diagnostic Imaging Results Diagnostic Imaging Results: positive: Final report reviewed Diagnostic Imaging Results Comments: CT head non-contrast 04/08/2018: 1. No intracranial hemorrhage, mass-effect or CT evidence of acute infarct 2. Generalized age-related cortical atrophic changes CXR 04/08/2018 Negative chest. Lungs are clear. - EKG Results EKG Interpreted Independently: Yes EKG Comparison: Unchanged from prior EKG EKG Findings: Sinus rhythm without ischemic changes Core Measures - Anticipated LOS I expect patient to be DC'd or transferred within 96 hours.: Yes - DVT/VTE - Prophylaxis VTE/DVT Device ordered at admit?: Yes
[2018-04-08] MEDS ORDERED: MAGNESIUM SULFATE 1 GM/2 ML VIAL IVP ONE (15:44)
[2018-04-08] MEDS ORDERED: MAGNESIUM SULFATE 2 GRAM 2 GM/50 ML BAG IV ONE (16:00)
[2018-04-08] MEDS ORDERED: ALBUTEROL NEB 2.5 MG/3 ML INH PRN (16:15)
[2018-04-08 16:24] LABS: HB2 TOTAL 10.4 g/dL; HEMOGLOBIN A1C 0.65 g/dL; HEMOGLOBIN A1C % 7.9 % (4.6-6.2)
[2018-04-08] MEDS: SODIUM CHLORIDE FLUSH 0.9% 10 ML SYRINGE IVP SCH ×2 (17:48→23:30)
[2018-04-08] MEDS: buPROPion SR 150 MG TABLET PO SCH (20:17)
[2018-04-08] MEDS: HEPARIN 5,000 UNIT/ML VIAL SUBQ SCH (20:17)
[2018-04-08] MEDS ORDERED: PRAVASTATIN 40 MG TABLET PO SCH (21:00)
[2018-04-08] MEDS ORDERED: GLUCAGON 1 MG/ML VIAL IM STA (23:17)
[2018-04-08] MEDS ORDERED: DEXTROSE 50% ABBOJECT 25 GM/50 ML SYRINGE IVP ONE (23:17)
[2018-04-08] MEDS: D5.45NS W/20 MEQ KCL 1,000 ML IV SCH (23:32)
[2018-04-09 06:16] LABS: BASOPHILS # (AUTO) 0.1 10^3/uL (0.0-0.1); BASOPHILS % (AUTO) 0.8 %; EOSINOPHILS # (AUTO) 0.3 10^3/uL (0.0-0.7); EOSINOPHILS % (AUTO) 2.3 %; HGB - HEMOGLOBIN 11.9 g/dL (12.0-16.0); LYMPHOCYTES # (AUTO) 3.2 10^3/uL (1.5-3.5); LYMPHOCYTES % (AUTO) 27.2 %; MEAN CORPUSCULAR HEMOGLOBIN 27.6 pg (27.0-31.0); MEAN CORPUSCULAR HGB CONC 31.8 g/dL (32.0-36.0); MEAN PLATELET VOLUME 7.6 fL (7.9-10.8); MONOCYTES # (AUTO) 0.9 10^3/uL (0.0-1.0); MONOCYTES % (AUTO) 7.5 %; NEUTROPHILS # (AUTO) 7.4 10^3/uL (1.5-6.6); NEUTROPHILS % (AUTO) 62.2 %; PLT - PLATELET COUNT 344 10^3/uL (130-450); RED BLOOD COUNT 4.31 10^6/uL (4.20-5.40); RED CELL DISTRIBUTION WIDTH 13.5 % (12.0-15.0); WHITE BLOOD COUNT 11.9 x10^3/uL (4.8-10.8)
[2018-04-09 06:25] LABS: MAGNESIUM 2.1 mg/dL (1.7-2.8)
[2018-04-09 06:32] LABS: CALCIUM 8.9 mg/dL (8.5-10.3)
[2018-04-09] MEDS: D5.45NS W/20 MEQ KCL 1,000 ML IV SCH (08:05)
[2018-04-09] MEDS ORDERED: POLYETHYLENE GLYCOL 3350 17 GM PACKET PO SCH (09:00)
[2018-04-09] MEDS ORDERED: VENLAFAXINE ER 75 MG CAPSULE PO SCH (09:00)
[2018-04-09] MEDS ORDERED: ASPIRIN EC 81 MG TABLET PO SCH (09:00)
[2018-04-09] MEDS: HEPARIN 5,000 UNIT/ML VIAL SUBQ SCH (09:13)
[2018-04-09] MEDS: buPROPion SR 150 MG TABLET PO SCH (09:15)
[2018-04-09] MEDS: SODIUM CHLORIDE FLUSH 0.9% 10 ML SYRINGE IVP SCH (09:15)
--- NOTE | 2018-04-09 12:12 | DISCHARGE SUMMARY ---
Discharge Summary Admit Date: 04/08/18 Discharge Date: 04/09/18 Discharging Provider: Jacklyn CHAMORRO Primary Care Provider: No PCP currently Code Status: Attempt Resuscitation Condition at Discharge: Good Discharge Disposition: 01 Home, Self Care - DIAGNOSES Admission Diagnoses: (1) Diabetes mellitus with hypoglycemia (2) Altered mental status (3) Depression (4) Hypertension (5) Hypomagnesemia Discharge Diagnoses with Status of Each Condition: (1) Diabetes mellitus with hypoglycemia, resolved (2) Altered mental status, resolved (3) Depression, stable (4) Hypertension, stable (5) Hypomagnesemia, resolved - HPI History of Present Illness: Patient is a 62 year old female with a past medical history significant for hypertension, hyperlipidemia, KARY, T2DM on metformin, heart block s/p pacemaker placement in 2014 and depression to presented to the [facility] ER with comp laint of altered mental status. She is accompanied by her brother Dano. The patient normally see's Dano on Sundays to spend the day together and for the patient to complete her laundry. He reports that she is normally waiting outside when he arrives, but this morning she was not outside when he arrived. He went to her apartment and the patient came out 'not dressed normally' and she was confused. The patient reports that she had been bumping into things and falling down. She denies hitting her head or losing consciousness. The last time someone else saw her was on Monday, by her caregiver Kelley, and per report, the patient was not confused at that time. She denies any changes in her medications or recent illness. She does take over the counter antihistamine and antacid in addition to her prescribed medications. She received medication packs for the month, a pack for the morning and a pack for the afternoon. She takes one pack at 7 am, and the other pack at 2pm. She states she has been doing this for the last 4 years. She reports being more tired than normal. She reports being a night owl and will sleep during the day. Yesterday, she also reports having large sun spots in bilateral eyes. She denies headache, dizziness, blurry vision. She eats frozen meals at home, and consumes roughly 3-4 meals a day. She does not check her blood sugars at home often, the last time being over a month. She did not check her blood sugar prior to coming to the hospital today. She has a history of low blood sugar, but is unable to give further details. Work up in the ER was notable for a blood sugar of 30. She was given D50. CT head was completed without acute changes. On her BMP, glucose was 115. In the ER she was started on a D10 infusion. At the time of my evaluation, the D10 infusion had not yet been started. She was sitting on the ER stretcher completing a crossword puzzle. Her brother reports that her mentation has improved significantly since arrival to the ER. - HOSPITAL COURSE Hospital Course: by problem: (1) Diabetes mellitus with hypoglycemia: Patient reports that she has been taking metformin as prescribed at 0700 and 1400 as she has for many years. She has not had any medication changes. She has had episodes of hypoglycemia in the past, but her blood sugars went up without needing to seek care.She has not seen her primary care provider in the last 6 months, since her provider has retired and she has not established with another provider. She has her medications in a dispensed pack and reports that she hasn't doubled up on any days. She does not check her blood sugars regularly at home, the last time she checked her blood sugar was roughly a month ago. Blood sugar in the ER on presentation was 30. She was given multiple amps of D50. She ate a turkey sandwich in the ER. Prior to that she had not eaten today. She reports eating 3-4 times a day, usually frozen meals. Has not skipped any meals recently. In the ER, she was started on a D10 infusion. She was taken off of the infusion and her blood sugar decreased to 30 again. She was asymptomatic. Overnight she was on a D5 infusion. This was discontinued this morning and the patients blood sugars have been 117, 140 and 155. She was asked to discontinue her metformin upon discharge, to check her blood sugars daily and may resume her metformin on Monday at a lower dose of 850 mg daily. She was given a list of new PCP's to establish care with. She should follow-up with her new provider within 1 week. She reports that she would like to establish care with Starla Cameron and will call tomorrow to set up an appointment. (2) Altered mental status Patient presented to the ER with confusion. Per report, she was normal on Monday when her caregiver last saw her. Patient reports bumping into things at home. Her brother notes that her mentation has drastically improved during her time in the ER. She is able to give history and was completing a crossword puzzle in the ER upon my evaluation. (3) Depression stable. Her home medications were continued (4) Hypertension Patient was hypertensive in the ER. Her sBP is now 120. Her hctz was held during hospitalization. She will resume this on discharge. (5) Hypomagnesemia Magnesium level 1.5 on admission. It was replaced with 2 gm IV magnesium. Follow-up magnesium 2.1. - ALLERGIES Allergies/Adverse Reactions: Allergies Allergy/AdvReac Type Severity Reaction Status Date / Time No Known Drug Allergies Allergy Verified 04/08/18 09:06 - MEDICATIONS Home Medications: Ambulatory Orders Medication Instructions Recorded Confirmed Aspirin [Aspir-Low] 81 mg PO DAILY 09/08/15 04/08/18 Pravastatin [Pravachol] 40 mg PO QPM 09/08/15 04/08/18 buPROPion [Wellbutrin Sr] 150 mg PO BID 09/08/15 04/08/18 Potassium Chloride [Micro-K] 10 meq PO DAILY 10/15/15 04/08/18 Albuterol Sulfate [Proventil Hfa 2 puffs INH Q4H PRN 04/08/18 04/08/18 Inhaler] Venlafaxine HCl [Venlafaxine HCl 150 mg PO DAILY 04/08/18 04/08/18 ER] hydroCHLOROthiazide 25 mg PO DAILY 04/08/18 04/08/18 [Hydrochlorothiazide] metFORMIN [Glucophage] 850 mg PO DAILYWM #30 tablet 04/09/18 - PHYSICAL EXAM AT DISCHARGE General Appearance: positive: No acute distress, Alert Eyes Bilateral: positive: Normal inspection, PERRL, EOMI ENT: positive: ENT inspection nml, Pharynx nml, No signs of dehydration Neck: positive: Nml inspection, Trachea midline Respiratory: positive: Chest non-tender, No respiratory distress, Breath sounds nml Cardiovascular: positive: Regular rate & rhythm, No murmur, No gallop Peripheral Pulses: positive: 2+ Abdomen: positive: Non-tender, No organomegaly, Nml bowel sounds, No distention Skin: positive: Warm, Dry Extremities: positive: Non-tender, Full ROM, Nml appearance Neurologic/Psychiatric: positive: Oriented x3, CN's nml (2-12), Motor nml, Sensation nml, Mood/affect nml - LABS Result Diagrams: 04/09/18 06:09 04/09/18 06:09 - DIAGNOSTIC IMAGING Diagnostic Imaging Results: Final report reviewed Diagnostic Imaging Results Comments: CT head non-contrast 04/08/2018: 1. No intracranial hemorrhage, mass-effect or CT evidence of acute infarct 2. Generalized age-related cortical atrophic changes CXR 04/08/2018 Negative chest. Lungs are clear. - FOLLOW UP Follow Up: Establish a new PCP and follow-up with them within 1 week to check blood sugar status. - TIME SPENT Time Spent in Discharge (Minutes): 45
--- NOTE | 2018-04-09 12:17 | Discharge Plan ---
Discharge Plan Disposition: 01 Home, Self Care Condition: Good Prescriptions: metFORMIN [Glucophage] 850 mg PO DAILYWM #30 tablet Diet: Diabetic Activity Restrictions: No Restrictions Instruction Topics: ED Diabetes Hypoglycemia Oral Agent Additional Instructions or Follow Up instructions: You were admitted to the hospital for low blood sugar. Your blood sugar was low and it sounds like you may have been running low over the last few days causing the confusion. Be sure to eat regularly over the next several days and ongoing. Have your brother help you make sure there is food available etc. You may have had a viral type illness leading to the initial less appetite etc. Drink lots of fluids and eat regularly. Check your blood sugars at home and record the numbers. Resume your metformin on 04/13/2018. Your dose has been decreased to 850 mg daily. Pleas follow-up with your primary care provider within a week to follow-up on your blood sugars and adjust your medications. There is no signs of more significant process on your blood tests, x-ray, urine test or CT scan. No Smoking: If you smoke, Please STOP! Call for help.
[2018-04-09 12:39] VITALS: BP 134/66
== END 2018-04-09 14:59 | disposition home or self-care (01) ==
LOC: ED 08:53 → OBS 14:58
PROVIDERS: ADMIT Nurse Practitioner; ATTEND Nurse Practitioner
DX: T38.3X1A Poisoning by insulin and oral hypoglycemic [antidiabetic] drugs, accidental (unintentional), initial encounter (principal); Y92.009 Unspecified place in unspecified non-institutional (private) residence as the place of occurrence of the external cause; E11.649 Type 2 diabetes mellitus with hypoglycemia without coma; R41.82 Altered mental status, unspecified; F32.9 Major depressive disorder, single episode, unspecified; I10 Essential (primary) hypertension; E83.42 Hypomagnesemia; E78.5 Hyperlipidemia, unspecified; G47.33 Obstructive sleep apnea (adult) (pediatric); J44.9 Chronic obstructive pulmonary disease, unspecified; R32 Unspecified urinary incontinence; H54.7 Unspecified visual loss; M19.90 Unspecified osteoarthritis, unspecified site; R62.50 Unspecified lack of expected normal physiological development in childhood; S60.512D Abrasion of left hand, subsequent encounter; W19.XXXD Unspecified fall, subsequent encounter; Z79.84 Long term (current) use of oral hypoglycemic drugs; Z79.82 Long term (current) use of aspirin; Z79.51 Long term (current) use of inhaled steroids; Z95.0 Presence of cardiac pacemaker
CPT/HCPCS: 36415; 70450; 71046; 80048; 80053; 81003; 83036; 83605; 83690; 83735; 84484; 85025; 87275; 87276; 93005; 96361; 96365; 96366; 96367; 96372; 99284; 99285; A9270; G0378; 81001; 87086; 96360

== ENCOUNTER 2018-04-22 11:50 | Emergency (ER) | payer MEDICAID ==
[2018-04-22] MEDS ORDERED: TETANUS/DIPHTHERIA/PERTUSSIS 0.5 ML SYRINGE IM ONE (12:44)
--- NOTE | 2018-04-22 12:47 | ED Physician Documentation ---
PD HPI HEAD INJURY - Stated complaint Stated Complaint: HEAD LAC - Chief complaint Chief Complaint: Laceration - History obtained from History obtained from: Patient - History of Present Illness Mechanism of head injury: Fell (She dropped her glasses and she was bending over to look for them and slipped on a rock and hit her head on a rock this morning. She has a laceration on the left scalp. No other injuries. Tetanus is not up-to-date. She declines pain medication.) Review of Systems Constitutional: reports: Reviewed and negative Ears: reports: Reviewed and negative Nose: reports: Reviewed and negative PD PAST MEDICAL HISTORY - Past Medical History Cardiovascular: Hypertension, High cholesterol Respiratory: Asthma, COPD, Sleep apnea Endocrine/Autoimmune: Type 2 diabetes GI: GERD, Chronic diarrhea : Incontinence HEENT: Chronic vision loss Psych: Depression, Anxiety, Panic attacks, Claustrophobia Musculoskeletal: Osteoarthritis Derm: None - Past Surgical History Past Surgical History: Yes General: Cholecystectomy, Colonoscopy Cardiovascular: Pacemaker - Present Medications Home Medications: Ambulatory Orders Medication Instructions Recorded Confirmed Aspirin [Aspir-Low] 81 mg PO DAILY 09/08/15 04/08/18 Pravastatin [Pravachol] 40 mg PO QPM 09/08/15 04/08/18 buPROPion [Wellbutrin Sr] 150 mg PO BID 09/08/15 04/08/18 Potassium Chloride [Micro-K] 10 meq PO DAILY 10/15/15 04/08/18 Albuterol Sulfate [Proventil Hfa 2 puffs INH Q4H PRN 04/08/18 04/08/18 Inhaler] Venlafaxine HCl [Venlafaxine HCl 150 mg PO DAILY 04/08/18 04/08/18 ER] hydroCHLOROthiazide 25 mg PO DAILY 04/08/18 04/08/18 [Hydrochlorothiazide] metFORMIN [Glucophage] 850 mg PO DAILYWM #30 tablet 04/09/18 - Allergies Allergies/Adverse Reactions: Allergies Allergy/AdvReac Type Severity Reaction Status Date / Time No Known Drug Allergies Allergy Verified 04/22/18 12:14 - Social History Does the pt smoke?: No Smoking Status: Never smoker Does the pt drink ETOH?: No Does the pt have substance abuse?: No - Immunizations Immunizations are current?: Yes - POLST Patient has POLST: No PD ED PE NORMAL - Vitals Vital signs reviewed: Yes - General General: Alert and oriented X 3, No acute distress - HEENT HEENT: PERRL, EOMI, Other (On the left scalp, above the mu-ism, completely within the hairline there is a 3 cm shallow laceration.) - Neck Neck: Supple, no meningeal sign, No bony TTP - Neuro Neuro: Alert and oriented X 3, Normal speech Results - Vitals Vitals: Vital Signs - 24 hr 04/22/18 12:14 Temperature 36.6 C Heart Rate 100 Respiratory 16 Rate Blood Pressure 129/72 O2 Saturation 99 Oxygen O2 Source Room air - Rads (name of study) CT Head Radiology: EMP read contemporaneously (Ventriculomegaly, encephalomalacia, no acute disease.) Procedures - Laceration (location) Scalp Length in cm: 3 Wound type: Linear Anesthesia: Lidocaine 1% with epi Wound Preparation: Irrigated copiously NS Skin layer closure: [place] (5) Other: Tetanus booster given Complexity: Simple Departure - Departure Disposition: 01 Home, Self Care Clinical Impression: Scalp laceration Qualifiers: Encounter type: initial encounter Qualified Code(s): S01.01XA - Laceration without foreign body of scalp, initial encounter Head injury Qualifiers: Encounter type: initial encounter Qualified Code(s): S09.90XA - Unspecified injury of head, initial encounter Condition: Good Record reviewed to determine appropriate education?: Yes Instructions: ED Head Injury Closed, ED Laceration Scalp Stitch Or Stap Comments: Come back for any signs of infection which would include: Redness, swelling, drainage, increased pain, or fevers. Follow-up with your physician in 7-10 days for staple removal.
--- NOTE | 2018-04-22 13:46 | CT Report ---
Reason: head inj Procedure Date: 04/22/2018 Accession Number: [id number] / [id number] Procedure: CT - HEAD WO CPT Code: FULL RESULT: EXAM: CT HEAD EXAM DATE: 04/22/2018 01:20 PM. CLINICAL HISTORY: Head inj. COMPARISON: HEAD W/O 04/08/2018 10:36 AM. TECHNIQUE: Multiaxial CT images were obtained from the foramen magnum to the vertex. Reformats: Sagittal and coronal. IV contrast: None. In accordance with CT protocol optimization, one or more of the following dose reduction techniques were utilized for this exam: automated exposure control, adjustment of mA and/or KV based on patient size, or use of iterative reconstructive technique. FINDINGS: Parenchyma: There is focal encephalomalacia in the left occipital lobe unchanged. There is mild nonfocal periventricular white matter hypodensity. Negative for intracranial acute hemorrhage. No midline shift or mass-effect. Extraaxial Spaces: No subdural or epidural collections identified. Ventricles: The ventricles are enlarged but unchanged in size. Sinuses and Orbits: Imaged paranasal sinuses, orbits, and mastoids show no significant abnormality. Bones: There are anterior left scalp jose. There is no acute fracture. Other: None. IMPRESSION: 1. Negative for intracranial hemorrhage or fracture. 2. Ventriculomegaly unchanged. 3. Focal encephalomalacia left occipital lobe unchanged. RADIA
[2018-04-22 14:20] VITALS: BP 134/87
== END 2018-04-22 14:10 | disposition home or self-care (01) ==
LOC: ED 11:50
DX: S01.01XA Laceration without foreign body of scalp, initial encounter (principal); S09.90XA Unspecified injury of head, initial encounter; W01.198A Fall on same level from slipping, tripping and stumbling with subsequent striking against other object, initial encounter; Z23 Encounter for immunization; I10 Essential (primary) hypertension; E11.9 Type 2 diabetes mellitus without complications; Z79.84 Long term (current) use of oral hypoglycemic drugs; Z79.82 Long term (current) use of aspirin
CPT/HCPCS: 12002; 70450; 90471; 99282; 99283

== ENCOUNTER 2018-05-22 08:00 | Outpatient (CLI) | payer MEDICAID ==
[2018-05-22 19:53] LABS: HB2 TOTAL 13.6 g/dL; HEMOGLOBIN A1C 0.78 g/dL; HEMOGLOBIN A1C % 7.4 % (4.6-6.2)
== END 2018-05-22 23:59 | disposition home or self-care (01) ==
LOC: LAB.N 08:00
PROVIDERS: ATTEND Nurse Practitioner Gerontology
DX: E11.9 Type 2 diabetes mellitus without complications (principal)
CPT/HCPCS: 36415; 83036

== ENCOUNTER 2018-07-19 02:00 | Outpatient (CLI) | payer MEDICAID | END 2018-07-19 02:01 | disposition critical access hospital (66) | LOC: EMS 02:00 | PROVIDERS: ATTEND Surgery | DX: M54.9 Dorsalgia, unspecified (principal) | CPT/HCPCS: A0425; A0429 ==

== ENCOUNTER 2018-07-19 02:16 | Emergency (ER) | payer MEDICAID ==
--- NOTE | 2018-07-19 02:59 | ED Physician Documentation ---
PD HPI LOWER EXT INJURY - Stated complaint Stated Complaint: BACK/SHOULDER PAIN - Chief complaint Chief Complaint: Back Pain - History obtained from History obtained from: Patient - History of Present Illness PD HPI LOW EXT INJURY LOCATION: Left, Other (Shoulder) Type of injury: Fall (Shoulder) Where injury occurred: Home Timing - onset: How many days ago (5) Timing - duration: Days (5) Timing - details: Abrupt onset Improved by: Nothing Associated symptoms: No: Numbness, Tingling Recently seen: Not recently seen - Additional information Additional information: Is a 62-year-old woman who is on a stepstool 5 days ago when she fell off and landed against the wall with her left shoulder and chest. She is been taking ibuprofen but the pain is not relieved with that it hurts to move or breathe. No pain radiating down the arm. No numbness or tingling. She did not hit her head or pass out. She called the ambulance [id number] to bring her here. Review of Systems Skin: denies: Rash Musculoskeletal: reports: Back pain, Joint pain Neurologic: denies: Generalized weakness, Numbness, Syncope, Head injury PD PAST MEDICAL HISTORY - Past Medical History Past Medical History: Yes Cardiovascular: Hypertension, High cholesterol Respiratory: Asthma, COPD, Sleep apnea Endocrine/Autoimmune: Type 2 diabetes GI: GERD, Chronic diarrhea : Incontinence HEENT: Chronic vision loss Psych: Depression, Anxiety, Panic attacks, Claustrophobia Musculoskeletal: Osteoarthritis Derm: None - Past Surgical History Past Surgical History: Yes General: Cholecystectomy, Colonoscopy Cardiovascular: Pacemaker - Present Medications Home Medications: Ambulatory Orders Medication Instructions Recorded Confirmed RX: Aspirin [Aspir-Low] 81 mg PO DAILY 09/08/15 04/08/18 RX: Pravastatin [Pravachol] 40 mg PO QPM 09/08/15 04/08/18 RX: buPROPion [Wellbutrin Sr] 150 mg PO BID 09/08/15 04/08/18 RX: Potassium Chloride [Micro-K] 10 meq PO DAILY 10/15/15 04/08/18 RX: Albuterol Sulfate [Proventil 2 puffs INH Q4H PRN 04/08/18 04/08/18 Hfa Inhaler] RX: Venlafaxine HCl [Venlafaxine 150 mg PO DAILY 04/08/18 04/08/18 HCl ER] RX: hydroCHLOROthiazide 25 mg PO DAILY 04/08/18 04/08/18 [Hydrochlorothiazide] metFORMIN [Glucophage] 850 mg PO DAILYWM #30 tablet 04/09/18 Hydrocodone/Acetaminophen 1 - 2 each PO Q6H PRN #6 tablet 07/19/18 [Hydrocodon-Acetaminophen 5-325] - Allergies Allergies/Adverse Reactions: Allergies Allergy/AdvReac Type Severity Reaction Status Date / Time No Known Drug Allergies Allergy Verified 07/19/18 02:21 - Social History Does the pt smoke?: No Smoking Status: Never smoker Does the pt drink ETOH?: No Does the pt have substance abuse?: No - Immunizations Immunizations are current?: Yes - POLST Patient has POLST: No PD ED PE NORMAL - Vitals Vital signs reviewed: Yes - General General: Alert and oriented X 3, No acute distress, Well developed/nourished, O ther (She did wince in pain and have difficulty sitting up because of the discomfort.) - HEENT HEENT: Atraumatic, PERRL - Neck Neck: No bony TTP - Cardiac Cardiac: RRR, No murmur, Strong equal pulses - Respiratory Respiratory: No respiratory distress, Clear bilaterally - Abdomen Abdomen: Normal bowel sounds - Back Back: No spinal TTP - Derm Derm: Other (There is a linear contusion that is healing on the left chest wall at the posterior axillary line. No subcu emphysema or crepitance.) - Extremities Extremities: No deformity, Other (Limited range of motion about the left shoulder due to pain. No obvious bruising. The remainder of the left upper extremity is atraumatic.) - Neuro Neuro: Alert and oriented X 3, No motor deficit, No sensory deficit - Psych Psych: Normal mood, Normal affect Results - Vitals Vitals: Vital Signs - 24 hr 07/19/18 07/19/18 02:17 04:31 Temperature 36.9 C Heart Rate 87 86 Respiratory 20 17 Rate Blood Pressure 153/74 H 124/96 H O2 Saturation 97 95 Oxygen O2 Source Room air - Rads (name of study) L shoulder Radiology: EMP read contemporaneously, See rad report (No fracture, dislocation) PD MEDICAL DECISION MAKING - ED course Complexity details: reviewed old records, d/w patient ED course: Patient does have some linear bruising along the chest wall which suggest an impacted there. Her shoulder x-ray does not show any fracture. She was given a hydrocodone here in the department stated that she was feeling little better. She was discharged with a prescription for 10 hydrocodone tablets and instructions to follow with her primary care provider for further pain management. Departure - Departure Disposition: 01 Home, Self Care Clinical Impression: Shoulder pain, acute, Back pain Condition: Good Instructions: ED Shoulder Pain [facility] Follow-Up: Starla Cameron ARNP [Credentialed Staff Provider] - Prescriptions: Hydrocodone/Acetaminophen [Hydrocodon-Acetaminophen 5-325] 1 - 2 each PO Q6H PRN #6 tablet PRN Reason: pain Comments: Continue to use the ibuprofen. Ice may help the shoulder feel better as well. I have given you a prescription for a few doses of hydrocodone. Do not operate machinery if you are Taking that and do not take additional Tylenol. Follow-up with your primary care provider for further management. Discharge Date/Time: 07/19/18 04:32
[2018-07-19] MEDS ORDERED: HYDROcod/ACETAM 5/325 MG TABLET PO STA (03:29)
--- NOTE | 2018-07-19 04:11 | XRAY Report ---
Reason: pain; trauma Procedure Date: 07/19/2018 Accession Number: [id number] / [id number] Procedure: XR - Shoulder 3 View LT CPT Code: FULL RESULT: EXAM: LEFT SHOULDER RADIOGRAPHY EXAM DATE: 07/19/2018 03:55 AM. CLINICAL HISTORY: Pain; trauma. COMPARISON: None. TECHNIQUE: 3 views. FINDINGS: Bones: Osteopenia. No acute fracture seen. Joints: No dislocation. Joint spaces are fairly well preserved for age. Soft tissues: Implanted cardiac device. IMPRESSION: 1. Osteopenia. No acute fracture or dislocation seen. RADIA
[2018-07-19 04:32] VITALS: BP 124/96
== END 2018-07-19 04:32 | disposition home or self-care (01) ==
LOC: EDUNIT# → ED 02:16
DX: S20.212A Contusion of left front wall of thorax, initial encounter (principal); M25.512 Pain in left shoulder; M54.9 Dorsalgia, unspecified; W08.XXXA Fall from other furniture, initial encounter; Y92.009 Unspecified place in unspecified non-institutional (private) residence as the place of occurrence of the external cause; M85.812 Other specified disorders of bone density and structure, left shoulder; I10 Essential (primary) hypertension; E11.9 Type 2 diabetes mellitus without complications; Z79.84 Long term (current) use of oral hypoglycemic drugs; Z79.82 Long term (current) use of aspirin
CPT/HCPCS: 73030; 99283; A9270

== ENCOUNTER 2018-07-20 14:10 | Outpatient (CLI) | payer MEDICAID | END 2018-07-20 14:11 | disposition EMS.NT | LOC: EMS 14:10 | PROVIDERS: ATTEND Surgery | DX: M54.9 Dorsalgia, unspecified (principal) ==

== ENCOUNTER 2018-08-08 03:51 | Outpatient (CLI) | payer MEDICAID | END 2018-08-08 03:52 | disposition critical access hospital (66) | LOC: EMS 03:51 | PROVIDERS: ATTEND Surgery | DX: M25.512 Pain in left shoulder (principal); R07.81 Pleurodynia | CPT/HCPCS: A0425; A0429; A0999 ==

== ENCOUNTER 2018-08-08 04:11 | Emergency (ER) | payer MEDICAID ==
--- NOTE | 2018-08-08 04:55 | ED Physician Documentation ---
PD HPI UPPER EXT INJURY - Stated complaint Stated Complaint: ARM PAIN 2ND TO FALL - Chief complaint Chief Complaint: Ext Problem - History obtained from History obtained from: Patient, EMS - History of Present Illness Location: Left, Shoulder Type of injury: Fall Timing - onset: How many weeks ago (3) Timing - details: Abrupt onset Improved by: Rest Worsened by: Moving, Other (deep inspiration) Associated symptoms: No: Weakness, Numbness, Swelling Contributing factors: No: Anticoagulated Recently seen: Emergency Dept - Additonal information Additional information: fell 3 weeks ago and sustained injury to left shoulder, presented to ED at that time and there was no demonstrable injury on xrays at that time. She had pain relief with prescribed vicodin and pain subsequently subsided until tonight at 7 PM when the pain reoccurred without specific inciting event. BIBA. C/O left shoulder pain that radiates down LUE to hand, distinctly worse with movement. Review of Systems Cardiac: reports: Reviewed and negative Respiratory: reports: Reviewed and negative Musculoskeletal: reports: Extremity pain, Joint pain. denies: Neck pain, Back pain Neurologic: denies: Focal weakness, Numbness PD PAST MEDICAL HISTORY - Past Medical History Past Medical History: Yes Cardiovascular: Hypertension, High cholesterol Respiratory: Asthma, COPD, Sleep apnea Endocrine/Autoimmune: Type 2 diabetes GI: GERD, Chronic diarrhea : Incontinence HEENT: Chronic vision loss Psych: Depression, Anxiety, Panic attacks, Claustrophobia Musculoskeletal: Osteoarthritis Derm: None - Past Surgical History Past Surgical History: Yes General: Cholecystectomy, Colonoscopy Cardiovascular: Pacemaker - Present Medications Home Medications: Ambulatory Orders Medication Instructions Recorded Confirmed Aspirin [Aspir-Low] 81 mg PO DAILY 09/08/15 08/08/18 Pravastatin [Pravachol] 40 mg PO QPM 09/08/15 08/08/18 buPROPion [Wellbutrin Sr] 150 mg PO BID 09/08/15 08/08/18 Potassium Chloride [Micro-K] 10 meq PO DAILY 10/15/15 08/08/18 Albuterol Sulfate [Proventil Hfa 2 puffs INH Q4H PRN 04/08/18 08/08/18 Inhaler] Venlafaxine HCl [Venlafaxine HCl 150 mg PO DAILY 04/08/18 08/08/18 ER] hydroCHLOROthiazide 25 mg PO DAILY 03/03/19 07/03/19 [Hydrochlorothiazide] metFORMIN [Glucophage] 850 mg PO DAILYWM #30 tablet 04/09/18 08/08/18 Hydrocodone/Acetaminophen 1 each PO Q6HR PRN #10 tablet 08/08/18 [Hydrocodone-Acetamin 5-325 mg] - Allergies Allergies/Adverse Reactions: Allergies Allergy/AdvReac Type Severity Reaction Status Date / Time No Known Drug Allergies Allergy Verified 08/08/18 04:15 - Social History Does the pt smoke?: No Smoking Status: Never smoker Does the pt drink ETOH?: No Does the pt have substance abuse?: No - Immunizations Immunizations are current?: Yes - POLST Patient has POLST: No PD ED PE NORMAL - Vitals Vital signs reviewed: Yes - General General: Alert and oriented X 3, No acute distress, Well developed/nourished - HEENT HEENT: Atraumatic - Neck Neck: No bony TTP - Respiratory Respiratory: No respiratory distress, Clear bilaterally - Derm Derm: Normal color, Warm and dry - Extremities Extremities: No deformity, No tenderness to palpate, Normal ROM s pain, No edema Results - Vitals Vitals: Vital Signs - 24 hr 08/08/18 08/08/18 08/08/18 04:12 05:50 06:23 Temperature 36.6 C 36.3 C L Heart Rate 92 85 87 Respiratory 16 17 16 Rate Blood Pressure 147/80 H 136/68 H 123/87 H O2 Saturation 97 97 100 Oxygen O2 Source Room air - Rads (name of study) chest xray Radiology: Prelim report reviewed, See rad report PD MEDICAL DECISION MAKING - ED course Complexity details: reviewed results, re-evaluated patient, considered differential, d/w patient ED course: patient has FROM E including shoulder and NT on exam. She transferred from ambulance stretcher to ED stretcher without difficulty and, notably, putting full weight on LUE to get up onto the ED stretcher. chest xray performed due to pleuritic component to pain, and two rib fractures are noted on this study. I discussed this result with patient, and she says she has been having left chest wall pain. I suspect these were sustained with initial injury and exacerbated with movement this evening. She is in no obvious distress during ED stay, although she does report pain that is worse with movement of the LUE and deep breath and thus given 1 tablet vicodin with short course rx for same. Departure - Departure Disposition: 01 Home, Self Care Clinical Impression: Rib fractures Qualifiers: Encounter type: initial encounter Rib fracture type: multiple ribs Fracture type: closed Laterality: left Qualified Code(s): S22.42XA - Multiple fractures of ribs, left side, initial encounter for closed fracture Condition: Good Health Concerns: left shoulder and left chest wall pain Plan of Treatment: pain medication as prescribed Care Goals: pain control Assessment: see diagnosis Instructions: ED Fx Rib Prescriptions: Hydrocodone/Acetaminophen [Hydrocodone-Acetamin 5-325 mg] 1 each PO Q6HR PRN #10 tablet PRN Reason: Pain Discharge Date/Time: 08/08/18 06:29
--- NOTE | 2018-08-08 06:00 | XRAY Report ---
Reason: left shoulder and pleuritic chest pain Procedure Date: 08/08/2018 Accession Number: [id number] / [id number] Procedure: XR - Chest 2 View X-Ray CPT Code: 45210 FULL RESULT: EXAM: CHEST RADIOGRAPHY EXAM DATE: 08/08/2018 05:46 AM. CLINICAL HISTORY: Left shoulder and pleuritic chest pain. COMPARISON: CHEST 2 VIEW 04/08/2018 9:50 AM. TECHNIQUE: 2 views. FINDINGS: Lungs/Pleura: No focal pneumonia or edema. No pleural effusion or pneumothorax. Mediastinum: Heart size not enlarged. No mediastinal shift. Other: Stable left pacemaker/AICD. Minimally displaced left fifth and sixth rib fractures could be recent. IMPRESSION: Minimally displaced left fifth and sixth rib fractures could be recent. No apparent complication. RADIA
[2018-08-08] MEDS ORDERED: HYDROcod/ACETAM 5/325 MG TABLET PO STA (06:18)
[2018-08-08 06:24] VITALS: BP 123/87
== END 2018-08-08 06:29 | disposition home or self-care (01) ==
LOC: EDUNIT# → ED 04:11
DX: S22.42XA Multiple fractures of ribs, left side, initial encounter for closed fracture (principal); W19.XXXA Unspecified fall, initial encounter; M25.512 Pain in left shoulder; I10 Essential (primary) hypertension; E11.9 Type 2 diabetes mellitus without complications; Z79.84 Long term (current) use of oral hypoglycemic drugs; Z79.82 Long term (current) use of aspirin
CPT/HCPCS: 71046; 99283; A9270

== ENCOUNTER 2018-11-01 14:44 | Outpatient (CLI) | payer MEDICAID ==
[2018-11-01 18:46] LABS: HGB - HEMOGLOBIN 11.7 g/dL (12.0-16.0); MEAN CORPUSCULAR HEMOGLOBIN 28.3 pg (27.0-31.0); MEAN CORPUSCULAR HGB CONC 31.7 g/dL (32.0-36.0); MEAN CORPUSCULAR VOLUME 89.1 fL (81.0-99.0); MEAN PLATELET VOLUME 10.1 fL (7.9-10.8); RED BLOOD COUNT 4.14 10^6/uL (4.20-5.40); RED CELL DISTRIBUTION WIDTH 12.5 % (12.0-15.0)
[2018-11-01 19:07] LABS: BUN - BLOOD UREA NITROGEN 18 mg/dL (6-20); CARBON DIOXIDE - CO2 28 mmol/L (21-32); CHLORIDE 103 mmol/L (101-111); GFR - MDRD 56 (>89); GLUCOSE 219 mg/dL (70-100); SODIUM 138 mmol/L (135-145); URIC ACID 6.2 mg/dL (2.6-7.2)
[2018-11-01 19:19] LABS: HEMOGLOBIN A1C 0.7 g/dL; HEMOGLOBIN A1C % 7.5 % (4.6-6.2)
[2018-11-01 19:36] LABS: CRP - C-REACTIVE PROTEIN < 1.0 mg/dL (0-1.0)
[2018-11-01 19:37] LABS: RHEUMATOID FACTOR NEGATIVE (Negative)
== END 2018-11-01 23:59 | disposition home or self-care (01) ==
LOC: LAB.N 14:44
PROVIDERS: ATTEND Family Medicine
DX: E11.9 Type 2 diabetes mellitus without complications (principal); M79.641 Pain in right hand
CPT/HCPCS: 36415; 80048; 82043; 82570; 83036; 84550; 85027; 85651; 86038; 86140; 86200; 86430

== ENCOUNTER 2018-11-02 08:00 | Outpatient (CLI) | payer MEDICAID ==
[2018-11-02 19:24] LABS: CREATININE,URINE 120.7 mg/dL; MICROALBUM/CREATININE RATIO,UR 20.7 ug/mg (<30.0); MICROALBUMIN,URINE 2.5 mg/dL (0-300.0)
== END 2018-11-02 23:59 | disposition home or self-care (01) ==
LOC: LAB.R 08:00
PROVIDERS: ATTEND Family Medicine
DX: E11.9 Type 2 diabetes mellitus without complications (principal)
CPT/HCPCS: 82043; 82570

== ENCOUNTER 2019-03-22 04:40 | Outpatient (CLI) | payer MEDICAID | END 2019-03-22 04:41 | disposition EMS.NT | LOC: EMS 04:40 | PROVIDERS: ATTEND Surgery | DX: R53.1 Weakness (principal) ==

== ENCOUNTER 2019-03-25 16:29 | Emergency (ER) | payer MEDICAID ==
[2019-03-25] MEDS ORDERED: DEXAMETHASONE 10 MG/ML VIAL PO STA (18:28)
[2019-03-25] MEDS ORDERED: CHERRY SYRUP 10 ML UDC PO ONE (18:28)
--- NOTE | 2019-03-25 18:55 | XRAY Report ---
Reason: cough and soa Procedure Date: 03/25/2019 Accession Number: [id number] / [id number] Procedure: XR - Chest 2 View X-Ray CPT Code: 08732 Final Report FULL RESULT: EXAM: CHEST RADIOGRAPHY EXAM DATE: 03/25/2019 06:40 PM. CLINICAL HISTORY: Cough and soa. COMPARISON: CHEST 2 VIEW 08/08/2018 5:33 AM. TECHNIQUE: 2 views. FINDINGS: Lungs/Pleura: Central bronchial wall thickening is noted. Hazy left greater than right basilar pulmonary opacity is seen. No pneumothorax. No pleural effusions evident. Mediastinum: Stable heart size and mediastinum. Stable position of leads for cardiac pacemaker. Other: None. IMPRESSION: 1. Central bronchial wall thickening could reflect underlying reactive airways and bronchitis. 2. Hazy left and right basilar opacities could reflect superimposed pneumonia. RADIA
[2019-03-25] MEDS ORDERED: cefTRIAXone 1 GM VIAL IM STA (19:10)
[2019-03-25] MEDS ORDERED: LIDOCAINE 1% 2 ML VIAL MC ONE (19:10)
--- NOTE | 2019-03-25 19:10 | ED Physician Documentation ---
PD HPI DYSPNEA - Stated complaint Stated Complaint: SOA - Chief complaint Chief Complaint: Resp - History obtained from History obtained from: Patient - History of Present Illness Timing - onset: How many weeks ago (2) Timing - onset during: Rest Timing - duration: Weeks (2) Timing - details: Gradual onset, Still present Inciting event(s): URI Improved by: Sitting up Worsened by: Exertion, Laying flat, Coughing Associated symptoms: Cough, Wheezing Similar symptoms before: Diagnosis (pneumonia) Recently seen: Not recently seen - Additional information Additional information: 63-year-old female with a history of COPD has developed a cough and congestion and she feels like she might have pneumonia. She is coughing up some phlegm it is thick she does have some mucus plugging associated with this where she can barely breathe until she coughs up the phlegm. Review of Systems Constitutional: reports: Fever, Myalgias Eyes: denies: Decreased vision Ears: denies: Ear pain Nose: denies: Rhinorrhea / runny nose, Congestion Throat: denies: Sore throat Cardiac: denies: Chest pain / pressure, Palpitations Respiratory: reports: Dyspnea, Cough, Wheezing GI: denies: Nausea, Vomiting : denies: Dysuria PD PAST MEDICAL HISTORY - Past Medical History Cardiovascular: Hypertension, High cholesterol Respiratory: Asthma, COPD, Sleep apnea Endocrine/Autoimmune: Type 2 diabetes GI: GERD, Chronic diarrhea : Incontinence HEENT: Chronic vision loss Psych: Depression, Anxiety, Panic attacks, Claustrophobia Musculoskeletal: Osteoarthritis Derm: None - Past Surgical History Past Surgical History: Yes General: Cholecystectomy, Colonoscopy Cardiovascular: Pacemaker - Present Medications Home Medications: Ambulatory Orders Medication Instructions Recorded Confirmed Aspirin [Aspir-Low] 81 mg PO DAILY 09/08/15 08/08/18 Pravastatin [Pravachol] 40 mg PO QPM 09/08/15 08/08/18 buPROPion [Wellbutrin Sr] 150 mg PO BID 09/08/15 08/08/18 Potassium Chloride [Micro-K] 10 meq PO DAILY 10/15/15 08/08/18 Albuterol Sulfate [Proventil Hfa 2 puffs INH Q4H PRN 04/08/18 08/08/18 Inhaler] Venlafaxine HCl [Venlafaxine HCl 150 mg PO DAILY 04/08/18 08/08/18 ER] hydroCHLOROthiazide 25 mg PO DAILY 04/08/18 08/08/18 [Hydrochlorothiazide] metFORMIN [Glucophage] 850 mg PO DAILYWM #30 tablet 04/09/18 08/08/18 Hydrocodone/Acetaminophen 1 each PO Q6HR PRN #10 tablet 08/08/18 [Hydrocodone-Acetamin 5-325 mg] Albuterol Sulf [Ventolin Hfa 1 - 2 puffs INH Q4HR PRN #1 inhaler 03/25/19 Inhaler] Azithromycin [Zithromax] 250 mg PO DAILY #6 tablet 03/25/19 predniSONE [Prednisone] 40 mg PO DAILY #10 tablet 03/25/19 - Allergies Allergies/Adverse Reactions: Allergies Allergy/AdvReac Type Severity Reaction Status Date / Time No Known Drug Allergies Allergy Verified 03/25/19 16:34 - Social History Does the pt smoke?: No Smoking Status: Never smoker Does the pt drink ETOH?: No Does the pt have substance abuse?: No - Immunizations Immunizations are current?: Yes - POLST Patient has POLST: No PD ED PE NORMAL - Vitals Vital signs reviewed: Yes (hypertensive ) - General General: Alert and oriented X 3, No acute distress, Well developed/nourished - HEENT HEENT: Atraumatic, PERRL, EOMI, Ears normal, Other (mucous membranes are dry ) - Neck Neck: Supple, no meningeal sign, No bony TTP - Cardiac Cardiac: RRR, No murmur - Respiratory Respiratory: No respiratory distress, Other (diminished breath sounds bilat ) - Abdomen Abdomen: Soft, Non tender - Back Back: No CVA TTP, No spinal TTP - Derm Derm: Normal color, Warm and dry, No rash - Extremities Extremities: No deformity, No edema, No calf tenderness / cord - Neuro Neuro: occasional babysitter 2-12 intact, No motor deficit, No sensory deficit, Normal speech Eye Opening: Spontaneous Motor: Obeys Commands Verbal: Oriented GCS Score: 15 - Psych Psych: Normal mood, Normal affect Results - Vitals Vitals: Vital Signs - 24 hr 03/25/19 16:34 Temperature 36.6 C Heart Rate 100 Respiratory 16 Rate Blood Pressure 156/80 H O2 Saturation 96 Oxygen O2 Source Room air - Rads (name of study) chest 2 Radiology: Prelim report reviewed (Impression: 1. Central bronchial wall thickening could reflect underlying reactive airways and bronchitis. 2 Hazy left and right basilar opacities could reflect superimposed pneumonia.), EMP read indepedently, See rad report PD MEDICAL DECISION MAKING - ED course Complexity details: reviewed old records, reviewed results, re-evaluated patient, considered differential, d/w patient ED course: 63-year-old female with a history of COPD feels like she has pneumonia and she has been coughing up some thick mucous plugs. Here in the emergency department she is administered dexamethasone 10 mg orally and a gram of Rocephin IM and a DuoNeb treatment. Departure - Departure Disposition: 01 Home, Self Care Clinical Impression: Pneumonia Qualifiers: Pneumonia type: due to unspecified organism Laterality: bilateral Lung location: lower lobe of lung Qualified Code(s): J18.9 - Pneumonia, unspecified organism Asthma exacerbation Qualifiers: Asthma severity: mild Asthma persistence: intermittent Qualified Code(s): J45.21 - Mild intermittent asthma with (acute) exacerbation Condition: Stable Instructions: ED Pneumonia Adult, ED Reactive Airway Disease Follow-Up: JEAN SNIDER MD [Primary Care Provider] - Prescriptions: Albuterol Sulf [Ventolin Hfa Inhaler] 1 - 2 puffs INH Q4HR PRN #1 inhaler PRN Reason: Shortness Of Air/Wheezing Azithromycin [Zithromax] 250 mg PO DAILY #6 tablet predniSONE [Prednisone] 40 mg PO DAILY #10 tablet
[2019-03-25] MEDS ORDERED: IPRATROPIUM/ALBUTEROL 3 ML NEB INH STA (19:11)
[2019-03-25 19:29] VITALS: BP 104/57
== END 2019-03-25 19:58 | disposition home or self-care (01) ==
LOC: ED 16:29
DX: J18.9 Pneumonia, unspecified organism (principal); I10 Essential (primary) hypertension; E11.9 Type 2 diabetes mellitus without complications; Z79.84 Long term (current) use of oral hypoglycemic drugs
CPT/HCPCS: 71046; 94640; 96372; 99283; 99284; A9270

== ENCOUNTER 2019-04-11 16:00 | Outpatient (CLI) | payer MEDICAID ==
[2019-04-11 21:11] LABS: CANDIDA GROUP DNA POSITIVE (NEGATIVE); CANDIDA KRUSEI DNA NEGATIVE (NEGATIVE); TRICHOMONAS VAGINALIS DNA NEGATIVE (NEGATIVE)
== END 2019-04-11 23:59 | disposition home or self-care (01) ==
LOC: LAB.R 16:00
PROVIDERS: ATTEND Family Medicine
DX: N76.0 Acute vaginitis (principal)
CPT/HCPCS: 87661; 87801

== ENCOUNTER 2019-06-25 08:00 | Outpatient (CLI) | payer MEDICAID ==
[2019-06-25 14:18] LABS: BUN - BLOOD UREA NITROGEN 17 mg/dL (6-20); CALCIUM 9.1 mg/dL (8.5-10.3); CARBON DIOXIDE - CO2 27 mmol/L (21-32); CHLORIDE 102 mmol/L (101-111); CHOL/HDL RATIO 4.1 (<4.4); CHOLESTEROL 177 mg/dL; CREATININE 1.1 mg/dL (0.4-1.0); GLUCOSE 136 mg/dL (70-100); HDL CHOLESTEROL 43 mg/dL; LDL CHOLESTEROL,CALCULATED 90 mg/dL; LDL/HDL RATIO 2.1 (<4.4); SODIUM 139 mmol/L (135-145); VLDL CHOLESTEROL 44 mg/dL
[2019-06-25 14:21] LABS: HB2 TOTAL 13.6 g/dL; HEMOGLOBIN A1C 0.72 g/dL
[2019-06-25 14:23] LABS: CREATININE,URINE 125.5 mg/dL; MICROALBUM/CREATININE RATIO,UR 12.7 ug/mg (<30.0); MICROALBUMIN,URINE 1.6 mg/dL (0-300.0)
== END 2019-06-25 23:59 | disposition home or self-care (01) ==
LOC: LAB.WCP 08:00
PROVIDERS: ATTEND Family Medicine
DX: E11.9 Type 2 diabetes mellitus without complications (principal); E78.1 Pure hyperglyceridemia; I10 Essential (primary) hypertension
CPT/HCPCS: 36415; 80048; 80061; 82043; 82570; 83036; 83721; 84443

== ENCOUNTER 2019-11-12 15:52 | Emergency (ER) | payer MEDICAID ==
[2019-11-12] MEDS ORDERED: SODIUM CHLORIDE 0.9% 1,000 ML IV STA (16:20)
--- NOTE | 2019-11-12 16:23 | ED Physician Documentation ---
PD HPI FEMALE - Stated complaint Stated Complaint: FEMALE - Chief complaint Chief Complaint: Abd Pain - History obtained from History obtained from: Patient - History of Present Illness Timing - onset: How many days ago (2) Timing - duration: Days (2) Timing - details: Gradual onset, Still present Associated symptoms: Dysuria, Urinary frequency, Hematuria Contributing factors: No: Similar symptoms before: Has not had sx before Recently seen: Not recently seen - Additional information Additional information: 64-year-old female with history of diabetes and hypertension as well as asthma has developed urinary urgency frequency and dysuria with concentrated red urine. She was asked by her clinic to come to the emergency department. She states that she is not having fever cough nausea back pain Review of Systems Constitutional: denies: Fever Eyes: denies: Decreased vision Ears: denies: Ear pain Nose: denies: Congestion Throat: denies: Sore throat Cardiac: denies: Chest pain / pressure, Palpitations Respiratory: denies: Dyspnea, Cough GI: reports: Abdominal Pain. 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 : Incontinence HEENT: Chronic vision loss Psych: Depression, Anxiety, Panic attacks, Claustrophobia Musculoskeletal: Osteoarthritis Derm: None - Past Surgical History Past Surgical History: Yes General: Cholecystectomy, Colonoscopy Cardiovascular: Pacemaker - Present Medications Home Medications: Ambulatory Orders Medication Instructions Recorded Confirmed Aspirin [Aspir-Low] 81 mg PO DAILY 09/08/15 08/08/18 Pravastatin [Pravachol] 40 mg PO QPM 09/08/15 08/08/18 buPROPion [Wellbutrin Sr] 150 mg PO BID 09/08/15 08/08/18 Potassium Chloride [Micro-K] 10 meq PO DAILY 10/15/15 08/08/18 Albuterol Sulfate [Proventil Hfa 2 puffs INH Q4H PRN 04/08/18 08/08/18 Inhaler] Venlafaxine HCl [Venlafaxine HCl 150 mg PO DAILY 04/08/18 08/08/18 ER] hydroCHLOROthiazide 25 mg PO DAILY 04/08/18 08/08/18 [Hydrochlorothiazide] metFORMIN [Glucophage] 850 mg PO DAILYWM #30 tablet 04/09/18 08/08/18 Hydrocodone/Acetaminophen 1 each PO Q6HR PRN #10 tablet 08/08/18 [Hydrocodone-Acetamin 5-325 mg] Albuterol Sulf [Ventolin Hfa 1 - 2 puffs INH Q4HR PRN #1 inhaler 03/25/19 Inhaler] Azithromycin [Zithromax] 250 mg PO DAILY #6 tablet 03/25/19 predniSONE [Prednisone] 40 mg PO DAILY #10 tablet 03/25/19 Amox/Clav 875/125 [Augmentin] 1 each PO Q12H #14 tablet 11/12/19 - Allergies Allergies/Adverse Reactions: Allergies Allergy/AdvReac Type Severity Reaction Status Date / Time No Known Drug Allergies Allergy Verified 11/12/19 16:01 - Social History Does the pt smoke?: No Smoking Status: Never smoker Does the pt drink ETOH?: No Does the pt have substance abuse?: No - Immunizations Immunizations are current?: Yes - POLST Patient has POLST: No PD ED PE NORMAL - Vitals Vital signs reviewed: Yes (Hypertensive) - General General: Alert and oriented X 3, No acute distress, Well developed/nourished - HEENT HEENT: Atraumatic, PERRL, EOMI - Neck Neck: Supple, no meningeal sign, No bony TTP - Cardiac Cardiac: RRR, No murmur - Respiratory Respiratory: No respiratory distress, Clear bilaterally - Abdomen Abdomen: Normal bowel sounds, Soft, No organomegaly, Other (mild suprapubic tenderness) - Back Back: No CVA TTP, No spinal TTP - Derm Derm: Normal color, Warm and dry, No rash - Extremities Extremities: No deformity, No edema - Neuro Neuro: Alert and oriented X 3, developmental services worker 2-12 intact, No motor deficit, No sensory deficit, Normal speech Eye Opening: Spontaneous Motor: Obeys Commands Verbal: Oriented GCS Score: 15 - Psych Psych: Normal mood, Normal affect Results - Vitals Vitals: Vital Signs - 24 hr 11/12/19 11/12/19 16:01 18:08 Temperature 37.1 C Heart Rate 90 84 Respiratory 18 18 Rate Blood Pressure 126/95 H 112/90 H O2 Saturation 100 100 Oxygen O2 Source Room air - Labs Labs: Laboratory Tests 11/12/19 11/12/19 11/12/19 16:21 16:30 16:30 WBC 9.1 RBC 4.39 Hgb 12.7 Hct 38.4 MCV 87.5 MCH 28.9 MCHC 33.1 RDW 12.3 Plt Count 392 MPV 9.7 Neut # (Auto) 5.4 Lymph # (Auto) 2.6 [place] # (Auto) 0.8 Eos # (Auto) 0.3 Baso # (Auto) 0.1 Absolute Nucleated RBC 0.00 Nucleated RBC % 0.0 Sodium 138 Potassium 3.9 Chloride 99 L Carbon Dioxide 28 Anion Gap 11.0 BUN 20 Creatinine 1.2 H Estimated GFR (MDRD) 45 L Glucose 157 H Calcium 9.7 Total Bilirubin 0.6 AST 24 ALT 19 Alkaline Phosphatase 98 Total Protein 8.3 H Albumin 4.2 Globulin 4.1 Albumin/Globulin Ratio 1.0 Lipase 87 H Urine Color Cancelled Urine Clarity Cancelled Urine pH Cancelled Ur Specific [place] Cancelled Urine Protein Cancelled Urine Glucose (UA) Cancelled Urine Ketones Cancelled Urine Occult Blood Cancelled Urine Nitrite Cancelled Urine Bilirubin Cancelled Urine Urobilinogen Cancelled Ur Leukocyte Esterase Cancelled Urine RBC Urine WBC Ur Squamous Epith Cells Urine Bacteria Ur Microscopic Review Cancelled Urine Culture Comments Cancelled 11/12/19 17:53 WBC RBC Hgb Hct MCV MCH MCHC RDW Plt Count MPV Neut # (Auto) Lymph # (Auto) [place] # (Auto) Eos # (Auto) Baso # (Auto) Absolute Nucleated RBC Nucleated RBC % Sodium Potassium Chloride Carbon Dioxide Anion Gap BUN Creatinine Estimated GFR (MDRD) Glucose Calcium Total Bilirubin AST ALT Alkaline Phosphatase Total Protein Albumin Globulin Albumin/Globulin Ratio Lipase Urine Color YELLOW Urine Clarity HAZY Urine pH 5.5 Ur Specific [place] 1.020 Urine Protein 100 H Urine Glucose (UA) NEGATIVE Urine Ketones NEGATIVE Urine Occult Blood LARGE H Urine Nitrite NEGATIVE Urine Bilirubin NEGATIVE Urine Urobilinogen 0.2 (NORMAL) Ur Leukocyte Esterase TRACE H Urine RBC TNTC H Urine WBC 0-3 Ur Squamous Epith Cells MOD Squamous H Urine Bacteria Rare Ur Microscopic Review INDICATED Urine Culture Comments NOT INDICATED Procedures - IVC sono (time) 1615 Bedside IVC sono: IVC measures (cm) (0.92), IVC collapsed c insp (cm) (complete), Dehydration (est 2 liter deficit) PD MEDICAL DECISION MAKING - ED course Complexity details: reviewed results, re-evaluated patient, considered differential, d/w patient ED course: 64-year-old female with a 2-day history of urinary urgency frequency dysuria and hematuria is administered a liter of saline for dehydration. Departure - Departure Disposition: Home, Self Care Clinical Impression: Dehydration Urinary tract infection Qualifiers: Urinary tract infection type: acute cystitis Hematuria presence: with hematuria Qualified Code(s): N30.01 - Acute cystitis with hematuria Condition: Stable Instructions: ED Dehydration, ED UTI Cystitis Female Follow-Up: JEAN SNIDER MD [Primary Care Provider] - Prescriptions: Amox/Clav 875/125 [Augmentin] 1 each PO Q12H #14 tablet
[2019-11-12 16:39] LABS: BASOPHILS # (AUTO) 0.1 10^3/uL (0.0-0.1); BASOPHILS % (AUTO) 0.8 %; EOSINOPHILS # (AUTO) 0.3 10^3/uL (0.0-0.7); EOSINOPHILS % (AUTO) 2.8 %; HGB - HEMOGLOBIN 12.7 g/dL (12.0-16.0); LYMPHOCYTES # (AUTO) 2.6 10^3/uL (1.5-3.5); LYMPHOCYTES % (AUTO) 28.7 %; MEAN CORPUSCULAR HEMOGLOBIN 28.9 pg (27.0-31.0); MEAN CORPUSCULAR HGB CONC 33.1 g/dL (32.0-36.0); MEAN CORPUSCULAR VOLUME 87.5 fL (81.0-99.0); MEAN PLATELET VOLUME 9.7 fL (7.9-10.8); MONOCYTES # (AUTO) 0.8 10^3/uL (0.0-1.0); MONOCYTES % (AUTO) 8.7 %; NEUTROPHILS # (AUTO) 5.4 10^3/uL (1.5-6.6); NEUTROPHILS % (AUTO) 58.7 %; PLT - PLATELET COUNT 392 10^3/uL (130-450); RED BLOOD COUNT 4.39 10^6/uL (4.20-5.40); RED CELL DISTRIBUTION WIDTH 12.3 % (12.0-15.0); WHITE BLOOD COUNT 9.1 x10^3/uL (4.8-10.8)
[2019-11-12 16:53] LABS: ALBUMIN 4.2 g/dL (3.2-5.5); BILIRUBIN,TOTAL 0.6 mg/dL (0.2-1.0); CALCIUM 9.7 mg/dL (8.5-10.3); CREATININE 1.2 mg/dL (0.4-1.0); TOTAL PROTEIN 8.3 g/dL (6.7-8.2)
[2019-11-12 18:00] LABS: BILIRUBIN,URINE NEGATIVE (NEGATIVE); GLUCOSE, URINE (UA) NEGATIVE (NEGATIVE); KETONES,URINE (UA) NEGATIVE (NEGATIVE); LEUKOCYTE ESTERASE, URINE TRACE (NEGATIVE); NITRITE,URINE NEGATIVE (NEGATIVE); OCCULT BLOOD,URINE LARGE (NEGATIVE); PH,URINE 5.5 PH (5.0-7.5); PROTEIN,URINE 100 mg/dL (NEGATIVE); UROBILINOGEN,URINE 0.2 (NORMAL) E.U./dL (NORMAL)
[2019-11-12 18:01] LABS: CLARITY,URINE HAZY (CLEAR)
[2019-11-12] MEDS ORDERED: cefTRIAXone 1 GM in SODIUM CHLORIDE 0.9% MINIBAG 100 ML IV STA (18:05)
[2019-11-12 18:14] LABS: BACTERIA,URINE Rare /HPF (None Seen); RBC,URINE TNTC /HPF (0-5); SQUAMOUS EPITHELIAL CELL,UR MOD Squamous (<= Few)
[2019-11-12 19:02] VITALS: BP 120/82
== END 2019-11-12 19:01 | disposition home or self-care (01) ==
LOC: ED 15:52
DX: E86.0 Dehydration (principal); N30.01 Acute cystitis with hematuria; I10 Essential (primary) hypertension; E11.9 Type 2 diabetes mellitus without complications; Z79.84 Long term (current) use of oral hypoglycemic drugs
CPT/HCPCS: 36415; 80053; 81001; 81003; 83690; 85025; 87086; 96365; 99283

== ENCOUNTER 2019-11-28 09:54 | Outpatient (CLI) | payer MEDICAID ==
[2019-11-28 12:22] LABS: BILIRUBIN,URINE NEGATIVE (NEGATIVE); GLUCOSE, URINE (UA) NEGATIVE (NEGATIVE); KETONES,URINE (UA) NEGATIVE (NEGATIVE); LEUKOCYTE ESTERASE, URINE TRACE (NEGATIVE); NITRITE,URINE NEGATIVE (NEGATIVE); OCCULT BLOOD,URINE SMALL (NEGATIVE); PH,URINE 5.5 PH (5.0-7.5); PROTEIN,URINE NEGATIVE (NEGATIVE); UROBILINOGEN,URINE 0.2 (NORMAL) E.U./dL (NORMAL)
[2019-11-28 12:23] LABS: ALBUMIN 3.9 g/dL (3.2-5.5); ALKALINE PHOSPHATASE 104 IU/L (42-121); ALT ALANINE AMINOTRANSFERASE 19 IU/L (10-60); AST ASPARTATE AMINOTRANSFERASE 19 IU/L (10-42); BILIRUBIN,TOTAL 0.4 mg/dL (0.2-1.0); BUN - BLOOD UREA NITROGEN 21 mg/dL (6-20); CALCIUM 9.2 mg/dL (8.5-10.3); CARBON DIOXIDE - CO2 27 mmol/L (21-32); CHLORIDE 99 mmol/L (101-111); CHOLESTEROL 171 mg/dL; CREATININE 1.3 mg/dL (0.4-1.0); GLUCOSE 115 mg/dL (70-100); HDL CHOLESTEROL 57 mg/dL; LDL CHOLESTEROL,CALCULATED 93 mg/dL; LDL/HDL RATIO 1.6 (<4.4); SODIUM 138 mmol/L (135-145); TOTAL PROTEIN 7.7 g/dL (6.7-8.2); VLDL CHOLESTEROL 21 mg/dL
[2019-11-28 12:32] LABS: BACTERIA,URINE None Seen /HPF (None Seen); CLARITY,URINE CLEAR (CLEAR); RBC,URINE 0-5 /HPF (0-5); SQUAMOUS EPITHELIAL CELL,UR MOD Squamous (<= Few)
[2019-11-28 12:33] LABS: HEMOGLOBIN A1c% 6.6 % (4.27-6.07)
== END 2019-11-28 23:59 | disposition home or self-care (01) ==
LOC: LAB.WCP 09:54
PROVIDERS: ATTEND Physician Assistant Medical
DX: E11.9 Type 2 diabetes mellitus without complications (principal)
CPT/HCPCS: 36415; 80053; 80061; 81001; 83036; 83721; 87086

== ENCOUNTER 2020-04-02 10:06 | Emergency (ER) | payer MEDICAID ==
[2020-04-02 10:37] LABS: GLUCOSE, URINE (UA) NEGATIVE (NEGATIVE); KETONES,URINE (UA) NEGATIVE (NEGATIVE); LEUKOCYTE ESTERASE, URINE SMALL (NEGATIVE); NITRITE,URINE POSITIVE (NEGATIVE); OCCULT BLOOD,URINE LARGE (NEGATIVE); PH,URINE 5.5 PH (5.0-7.5); PROTEIN,URINE >=300 mg/dL (NEGATIVE); UROBILINOGEN,URINE 0.2 (NORMAL) E.U./dL (NORMAL)
[2020-04-02 10:38] LABS: CLARITY,URINE CLOUDY (CLEAR)
[2020-04-02 10:42] LABS: BILIRUBIN,URINE NEGATIVE (NEGATIVE); ICTOTEST,URINE NEGATIVE
[2020-04-02 10:48] LABS: BACTERIA,URINE Few /HPF (None Seen); RBC,URINE TNTC /HPF (0-5); SQUAMOUS EPITHELIAL CELL,UR NONE SEEN (<= Few)
[2020-04-02] MEDS ORDERED: NITROFURANTOIN MACRO 100 MG CAPSULE PO STA (11:51)
[2020-04-02] MEDS ORDERED: cephALEXin 250 MG CAPSULE PO STA (11:54)
--- NOTE | 2020-04-02 11:54 | ED Physician Documentation ---
History of Present Illness - Stated complaint Stated Complaint: FEMALE - Chief complaint Chief Complaint: UTI - History obtained from History obtained from: Patient - Additonal information Additional information: 64yF with no reported pmh p/w dysuria, increased frequency and hematuria X 1 day. denies fevers, back pain, abd pain or other symptoms. 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 : Incontinence HEENT: Chronic vision loss Psych: Depression, Anxiety, Panic attacks, Claustrophobia Musculoskeletal: Osteoarthritis Derm: None - Past Surgical History Past Surgical History: Yes General: Cholecystectomy, Colonoscopy Cardiovascular: Pacemaker - Present Medications Home Medications: Ambulatory Orders Medication Instructions Recorded Confirmed Aspirin [Aspir-Low] 81 mg PO DAILY 09/08/15 08/08/18 Pravastatin [Pravachol] 40 mg PO QPM 09/08/15 08/08/18 buPROPion [Wellbutrin Sr] 150 mg PO BID 09/08/15 08/08/18 Potassium Chloride [Micro-K] 10 meq PO DAILY 10/15/15 08/08/18 Albuterol Sulfate [Proventil Hfa 2 puffs INH Q4H PRN 04/08/18 08/08/18 Inhaler] Venlafaxine HCl [Venlafaxine HCl 150 mg PO DAILY 04/08/18 08/08/18 ER] hydroCHLOROthiazide 25 mg PO DAILY 04/08/18 08/08/18 [Hydrochlorothiazide] metFORMIN [Glucophage] 850 mg PO DAILYWM #30 tablet 04/09/18 08/08/18 Hydrocodone/Acetaminophen 1 each PO Q6HR PRN #10 tablet 08/08/18 [Hydrocodone-Acetamin 5-325 mg] Albuterol Sulf [Ventolin Hfa 1 - 2 puffs INH Q4HR PRN #1 inhaler 03/25/19 Inhaler] Azithromycin [Zithromax] 250 mg PO DAILY #6 tablet 03/25/19 predniSONE [Prednisone] 40 mg PO DAILY #10 tablet 03/25/19 Amox/Clav 875/125 [Augmentin] 1 each PO Q12H #14 tablet 11/12/19 Lactobacillus Acidophilus 1 each PO QDAC 14 Days #14 tab 04/02/20 [Acidophilus Lactobacilli] cephALEXin [Keflex] 500 mg PO BID 5 Days #10 tab 04/02/20 - Allergies Allergies/Adverse Reactions: Allergies Allergy/AdvReac Type Severity Reaction Status Date / Time No Known Drug Allergies Allergy Verified 04/02/20 10:17 - Social History Does the pt smoke?: No Smoking Status: Never smoker Does the pt drink ETOH?: No Does the pt have substance abuse?: No - Immunizations Immunizations are current?: Yes - POLST Patient has POLST: No PD ED PE NORMAL - Vitals Vital signs reviewed: Yes - General General: Alert and oriented X 3, No acute distress, Well developed/nourished - HEENT HEENT: Atraumatic, PERRL, EOMI - Cardiac Cardiac: RRR - Respiratory Respiratory: No respiratory distress, Clear bilaterally - Abdomen Abdomen: Non tender, Non distended - Back Back: No CVA TTP - Derm Derm: Normal color, Warm and dry - Extremities Extremities: No deformity, No edema - Neuro Neuro: Alert and oriented X 3 - Psych Psych: Normal mood, Normal affect Results - Vitals Vitals: Vital Signs - 24 hr 04/02/20 04/02/20 10:17 12:00 Temperature 36.9 C Heart Rate 90 82 Respiratory 19 16 Rate Blood Pressure 136/71 H 128/68 O2 Saturation 100 Oxygen O2 Source Room air - Labs Labs: Laboratory Tests 04/02/20 10:23 Urine Color RED/BLOODY Urine Clarity CLOUDY Urine pH 5.5 Ur Specific [place] 1.020 Urine Protein >=300 H Urine Glucose (UA) NEGATIVE Urine Ketones NEGATIVE Urine Occult Blood LARGE H Urine Nitrite POSITIVE H Urine Bilirubin NEGATIVE Urine Urobilinogen 0.2 (NORMAL) Ur Leukocyte Esterase SMALL H Urine RBC TNTC H Urine WBC 6-10 H Ur Squamous Epith Cells NONE SEEN Urine Bacteria Few Ur Microscopic Review INDICATED Urine Culture Comments INDICATED PD MEDICAL DECISION MAKING - ED course ED course: 64yF presents with uncomplicated uti. abx script given. strict return precautions given. pt will f/u with pmd. Departure - Departure Disposition: 01 Home, Self Care Clinical Impression: UTI (urinary tract infection), Hematuria Condition: Good Instructions: Urinary Tract Infecs Women Prescriptions: Lactobacillus Acidophilus [Acidophilus Lactobacilli] 1 each PO QDAC 14 Days #14 tab cephALEXin [Keflex] 500 mg PO BID 5 Days #10 tab Comments: You were seen in the emergency department for urinary tract infection. Return to the emergency department if you develop any new or worsening symptoms or other concerns. Return if you have any fevers or back pain. You should have improvement within 2 days of antibiotics. Follow-up with your primary doctor this week. Discharge Date/Time: 04/02/20 12:10
[2020-04-02 12:14] VITALS: BP 128/68
== END 2020-04-02 12:10 | disposition home or self-care (01) ==
LOC: ED 10:06
DX: N39.0 Urinary tract infection, site not specified (principal); R31.9 Hematuria, unspecified; E11.9 Type 2 diabetes mellitus without complications; Z79.84 Long term (current) use of oral hypoglycemic drugs
CPT/HCPCS: 81001; 87077; 87086; 99283; A9270; 81003

== ENCOUNTER 2020-04-15 08:00 | Outpatient (CLI) | payer MEDICAID ==
[2020-04-15 19:44] LABS: BILIRUBIN,URINE NEGATIVE (NEGATIVE); GLUCOSE, URINE (UA) NEGATIVE (NEGATIVE); KETONES,URINE (UA) NEGATIVE (NEGATIVE); LEUKOCYTE ESTERASE, URINE SMALL (NEGATIVE); NITRITE,URINE NEGATIVE (NEGATIVE); OCCULT BLOOD,URINE LARGE (NEGATIVE); PROTEIN,URINE NEGATIVE (NEGATIVE); UROBILINOGEN,URINE 0.2 (NORMAL) E.U./dL (NORMAL)
[2020-04-15 19:46] LABS: CLARITY,URINE HAZY (CLEAR)
[2020-04-15 20:06] LABS: BACTERIA,URINE Many /HPF (None Seen); SQUAMOUS EPITHELIAL CELL,UR MANY Squamous (<= Few)
== END 2020-04-15 23:59 | disposition home or self-care (01) ==
LOC: LAB.WCP 08:00
PROVIDERS: ATTEND Physician Assistant Medical
DX: R31.9 Hematuria, unspecified (principal)
CPT/HCPCS: 81001; 87086

== ENCOUNTER 2020-04-20 17:26 | Emergency (ER) | payer MEDICAID ==
[2020-04-20 18:20] LABS: GLUCOSE, URINE (UA) NEGATIVE (NEGATIVE); KETONES,URINE (UA) NEGATIVE (NEGATIVE); LEUKOCYTE ESTERASE, URINE TRACE (NEGATIVE); NITRITE,URINE POSITIVE (NEGATIVE); OCCULT BLOOD,URINE LARGE (NEGATIVE); PH,URINE 6.5 PH (5.0-7.5); PROTEIN,URINE >=300 mg/dL (NEGATIVE); UROBILINOGEN,URINE 1 (NORMAL) E.U./dL (NORMAL)
[2020-04-20 18:23] LABS: CLARITY,URINE CLOUDY (CLEAR)
[2020-04-20 18:28] LABS: BILIRUBIN,URINE NEGATIVE (NEGATIVE); ICTOTEST,URINE NEGATIVE
[2020-04-20 18:29] LABS: AMORPHOUS SEDIMENT,UR Few /LPF; BACTERIA,URINE Few /HPF (None Seen); RBC,URINE TNTC /HPF (0-5); SQUAMOUS EPITHELIAL CELL,UR FEW Squamous (<= Few)
[2020-04-20 18:30] LABS: BASOPHILS # (AUTO) 0.1 10^3/uL (0.0-0.1); BASOPHILS % (AUTO) 0.9 %; EOSINOPHILS # (AUTO) 0.2 10^3/uL (0.0-0.7); EOSINOPHILS % (AUTO) 1.7 %; HCT - HEMATOCRIT 35.2 % (37.0-47.0); HGB - HEMOGLOBIN 11.7 g/dL (12.0-16.0); LYMPHOCYTES # (AUTO) 2.8 10^3/uL (1.5-3.5); LYMPHOCYTES % (AUTO) 25.3 %; MEAN CORPUSCULAR HEMOGLOBIN 29.3 pg (27.0-31.0); MEAN CORPUSCULAR HGB CONC 33.2 g/dL (32.0-36.0); MEAN CORPUSCULAR VOLUME 88.2 fL (81.0-99.0); MEAN PLATELET VOLUME 9.1 fL (7.9-10.8); MONOCYTES # (AUTO) 0.8 10^3/uL (0.0-1.0); MONOCYTES % (AUTO) 6.8 %; NEUTROPHILS # (AUTO) 7.2 10^3/uL (1.5-6.6); PLT - PLATELET COUNT 433 10^3/uL (130-450); RED BLOOD COUNT 3.99 10^6/uL (4.20-5.40); RED CELL DISTRIBUTION WIDTH 12.5 % (12.0-15.0); WHITE BLOOD COUNT 11.1 x10^3/uL (4.8-10.8)
--- NOTE | 2020-04-20 18:32 | ED Physician Documentation ---
History of Present Illness - Stated complaint Stated Complaint: BOWEL PROBLEM - Chief complaint Chief Complaint: Abd Pain - History obtained from History obtained from: Patient - History of Present Illness Timing: Today Pain level max: 3 Pain level now: 3 - Additonal information Additional information: Patient is a 64-year-old female who presents to the emergency department stating she has blood in her urine today. She states she has suprapubic pain as well. Similar to past UTIs. She states she is treated for UTI approximately 3 weeks ago and did feel better but now the symptoms seem to be back. Denies any vaginal bleeding or discharge. No rectal bleeding. No vomiting. No diarrhea. No fevers. No chills. Review of Systems Constitutional: denies: Fever, Chills Cardiac: denies: Chest pain / pressure Respiratory: denies: Cough GI: denies: Vomiting, Diarrhea : reports: Dysuria, Frequency, Hesitancy, Hematuria Skin: denies: Rash Musculoskeletal: denies: Neck pain, Back pain Neurologic: denies: Headache PD PAST MEDICAL HISTORY - Past Medical History Cardiovascular: Hypertension, High cholesterol Respiratory: Asthma, COPD, Sleep apnea Neuro: None Endocrine/Autoimmune: Type 2 diabetes GI: GERD, Chronic diarrhea [employer]: None : Incontinence HEENT: Chronic vision loss Psych: Depression, Anxiety, Panic attacks, Claustrophobia Musculoskeletal: Osteoarthritis Derm: None - Past Surgical History Past Surgical History: Yes General: Cholecystectomy, Colonoscopy Cardiovascular: Pacemaker - Present Medications Home Medications: Ambulatory Orders Medication Instructions Recorded Confirmed Aspirin [Aspir-Low] 81 mg PO DAILY 09/08/15 04/20/20 Pravastatin [Pravachol] 40 mg PO QPM 09/08/15 04/20/20 buPROPion [Wellbutrin Sr] 150 mg PO BID 09/08/15 04/20/20 Potassium Chloride [Micro-K] 10 meq PO DAILY 10/15/15 04/20/20 Albuterol Sulfate [Proventil Hfa 2 puffs INH Q4H PRN 04/08/18 04/20/20 Inhaler] Venlafaxine HCl [Venlafaxine HCl 150 mg PO DAILY 04/08/18 04/20/20 ER] hydroCHLOROthiazide 25 mg PO DAILY 04/08/18 04/20/20 [Hydrochlorothiazide] metFORMIN [Glucophage] 850 mg PO DAILYWM #30 tablet 04/09/18 04/20/20 Hydrocodone/Acetaminophen 1 each PO Q6HR PRN #10 tablet 08/08/18 04/20/20 [Hydrocodone-Acetamin 5-325 mg] Albuterol Sulf [Ventolin Hfa 1 - 2 puffs INH Q4HR PRN #1 inhaler 03/25/19 04/20/20 Inhaler] Azithromycin [Zithromax] 250 mg PO DAILY #6 tablet 03/25/19 04/20/20 predniSONE [Prednisone] 40 mg PO DAILY #10 tablet 03/25/19 04/20/20 Lactobacillus Acidophilus 1 each PO QDAC 14 Days #14 tab 04/02/20 04/20/20 [Acidophilus Lactobacilli] Cefpodoxime Proxetil [Vantin] 100 mg PO Q12H #14 tablet 04/20/20 - Allergies Allergies/Adverse Reactions: Allergies Allergy/AdvReac Type Severity Reaction Status Date / Time No Known Drug Allergies Allergy Verified 04/20/20 17:35 - Social History Does the pt smoke?: No Smoking Status: Never smoker Does the pt drink ETOH?: No Does the pt have substance abuse?: No - Immunizations Immunizations are current?: Yes - POLST Patient has POLST: No PD ED PE NORMAL - Vitals Vital signs reviewed: Yes - General General: Alert and oriented X 3, No acute distress - HEENT HEENT: Moist mucous membranes - Neck Neck: Supple, no meningeal sign - Cardiac Cardiac: RRR - Respiratory Respiratory: No respiratory distress, Clear bilaterally - Abdomen Abdomen: Soft, Non distended, Other (Mild suprapubic tenderness without peritoneal signs.) - Back Back: No spinal TTP, Other (Mild left CVA tenderness.) - Derm Derm: Warm and dry - Extremities Extremities: No edema - Neuro Neuro: Alert and oriented X 3 Results - Vitals Vitals: Vital Signs - 24 hr 04/20/20 04/20/20 17:34 19:52 Temperature 36.4 C L 36.7 C Heart Rate 100 94 Respiratory 20 18 Rate Blood Pressure 157/89 H 139/78 H O2 Saturation 98 100 Oxygen O2 Source Room air - Labs Labs: Laboratory Tests 04/20/20 04/20/20 04/20/20 17:47 18:25 18:25 WBC 11.1 H RBC 3.99 L Hgb 11.7 L Hct 35.2 L MCV 88.2 MCH 29.3 MCHC 33.2 RDW 12.5 Plt Count 433 MPV 9.1 Neut # (Auto) 7.2 H Lymph # (Auto) 2.8 [place] # (Auto) 0.8 Eos # (Auto) 0.2 Baso # (Auto) 0.1 Absolute Nucleated RBC 0.00 Nucleated RBC % 0.0 Sodium 136 Potassium 3.2 L Chloride 99 L Carbon Dioxide 26 Anion Gap 11.0 BUN 19 Creatinine 1.8 H Estimated GFR (MDRD) 28 L Glucose 112 H Calcium 8.9 Urine Color BROWN Urine Clarity CLOUDY Urine pH 6.5 Ur Specific [place] >=1.030 H Urine Protein >=300 H Urine Glucose (UA) NEGATIVE Urine Ketones NEGATIVE Urine Occult Blood LARGE H Urine Nitrite POSITIVE H Urine Bilirubin NEGATIVE Urine Urobilinogen 1 (NORMAL) Ur Leukocyte Esterase TRACE H Urine RBC TNTC H Urine WBC 4-5 Ur Squamous Epith Cells FEW Squamous Amorphous Sediment Few Urine Bacteria Few Ur Microscopic Review INDICATED Urine Culture Comments INDICATED - Rads (name of study) CT Abd/pelvis Radiology: Prelim report reviewed, EMP read contemporaneously, See rad report (2 Millimeter right nephrolithiasis. Mild right pelvicaliectasis) PD MEDICAL DECISION MAKING - ED course Complexity details: reviewed results, re-evaluated patient, considered differential, d/w patient ED course: Patient is well-appearing, nontoxic. Afebrile. Appears to have a UTI. No evidence of ureteral stone. No significant lab abnormalities. Given Rocephin here. Will trial on Cefpodoxime for home. Patient counseled regarding signs and symptoms for which I believe and urgent re-evaluation would be necessary. Patient with good understanding of and agreement to plan and is comfortable going home at this time This document was made in part using voice recognition software. While efforts are made to proofread this document, sound alike and grammatical errors may occur. Departure - Departure Disposition: 01 Home, Self Care Clinical Impression: UTI (urinary tract infection) Qualifiers: Urinary tract infection type: acute cystitis Hematuria presence: with hematuria Qualified Code(s): N30.01 - Acute cystitis with hematuria Condition: Good Instructions: ED UTI Cystitis Female Follow-Up: Olimpia Jasso PA-C [Primary Care Provider] - Within 1 week Prescriptions: Cefpodoxime Proxetil [Vantin] 100 mg PO Q12H #14 tablet Comments: Take all antibiotics until gone. Return if you worsen. Drink plenty of water. Follow-up with your doctor for recheck within 1 week. Your creatinine should be rechecked at that time as well. Discharge Date/Time: 04/20/20 20:06
[2020-04-20 18:40] LABS: CALCIUM 8.9 mg/dL (8.5-10.3); CREATININE 1.8 mg/dL (0.4-1.0); POTASSIUM 3.2 mmol/L (3.5-5.0)
[2020-04-20] MEDS ORDERED: LIDOCAINE 1% 2 ML VIAL MC ONE (19:04)
[2020-04-20] MEDS ORDERED: cefTRIAXone 1 GM VIAL IM STA (19:04)
--- NOTE | 2020-04-20 19:46 | CT Report ---
PROCEDURE: Abdomen/Pelvis WO INDICATIONS: L flank pain TECHNIQUE: Noncontrast 5 mm thick sections acquired from the diaphragms to the symphysis. 5 mm coronal and sagi ttal reformats were then performed. For radiation dose reduction, the following was used: automated exposure control, adjustment of mA and/or kV according to patient size. COMPARISON: None. FINDINGS: Image quality: Excellent. ABDOMEN: Lung bases: Lung bases are clear. Heart size is normal. Solid organs: Liver and spleen are normal in size. Gallbladder surgically absent Pancreas is terry l in contours. No adrenal nodules. Kidneys are normal in size, and there is mild right pelvocaliect asis. 2 mm right nephrolithiasis. Peritoneum and bowel: Unenhanced bowel loops demonstrate normal wall thickness and caliber. No free fluid or air. Normal appendix Nodes and vessels: No retroperitoneal or mesenteric adenopathy by size criteria. Aorta and inferior vena cava are normal in caliber. Miscellaneous: No ventral hernias. PELVIS: Genitourinary: Bladder wall thickness is normal. Miscellaneous: No inguinal hernias or adenopathy. Bones: No suspicious bony lesions. No vertebral body compression fractures. IMPRESSION: 2 mm right nephrolithiasis. Mild right pelvocaliectasis. Reviewed by: Will Simms MD on 04/20/2020 7:45 PM PDT Approved by: Will Simms MD on 04/20/2020 7:45 PM PDT Station ID: [id number]
[2020-04-20 19:52] VITALS: BP 139/78
== END 2020-04-20 20:06 | disposition home or self-care (01) ==
LOC: ED 17:26
DX: N30.01 Acute cystitis with hematuria (principal); N20.0 Calculus of kidney; I10 Essential (primary) hypertension; E11.9 Type 2 diabetes mellitus without complications; Z79.84 Long term (current) use of oral hypoglycemic drugs; Z79.82 Long term (current) use of aspirin
CPT/HCPCS: 36415; 80048; 81001; 81003; 85025; 87086; 96372; 99284

== ENCOUNTER 2020-05-19 09:35 | Outpatient (CLI) | payer MEDICAID ==
[2020-05-19 11:38] LABS: BASOPHILS # (AUTO) 0.1 10^3/uL (0.0-0.1); BASOPHILS % (AUTO) 0.6 %; EOSINOPHILS # (AUTO) 0.3 10^3/uL (0.0-0.7); EOSINOPHILS % (AUTO) 3.1 %; HCT - HEMATOCRIT 35.5 % (37.0-47.0); HGB - HEMOGLOBIN 11.3 g/dL (12.0-16.0); LYMPHOCYTES # (AUTO) 2.5 10^3/uL (1.5-3.5); LYMPHOCYTES % (AUTO) 25.4 %; MEAN CORPUSCULAR HEMOGLOBIN 28.5 pg (27.0-31.0); MEAN CORPUSCULAR HGB CONC 31.8 g/dL (32.0-36.0); MEAN CORPUSCULAR VOLUME 89.4 fL (81.0-99.0); MEAN PLATELET VOLUME 9.5 fL (7.9-10.8); MONOCYTES # (AUTO) 0.7 10^3/uL (0.0-1.0); MONOCYTES % (AUTO) 7.3 %; NEUTROPHILS # (AUTO) 6.2 10^3/uL (1.5-6.6); NEUTROPHILS % (AUTO) 63.2 %; PLT - PLATELET COUNT 476 10^3/uL (130-450); RED BLOOD COUNT 3.97 10^6/uL (4.20-5.40); RED CELL DISTRIBUTION WIDTH 12.4 % (12.0-15.0); WHITE BLOOD COUNT 9.9 x10^3/uL (4.8-10.8)
[2020-05-19 12:29] LABS: ALBUMIN 4.2 g/dL (3.2-5.5); ALBUMIN/GLOBULIN RATIO 1.1 (1.0-2.2); BILIRUBIN,TOTAL 0.5 mg/dL (0.2-1.0); CALCIUM 9.7 mg/dL (8.5-10.3); CREATININE 1.4 mg/dL (0.4-1.0); POTASSIUM 3.9 mmol/L (3.5-5.0); TOTAL PROTEIN 7.9 g/dL (6.7-8.2)
[2020-05-19 12:44] LABS: CREATININE,URINE 43.2 mg/dL; MICROALBUM/CREATININE RATIO,UR 76.4 ug/mg (<30.0); MICROALBUMIN,URINE 3.3 mg/dL (0-300.0); THYROID STIMULATING HORMONE 3.5 uIU/mL (0.34-5.60)
[2020-05-19 13:16] LABS: ESTIMATED AVERAGE GLUCOSE 151 mg/dL (70-100); HEMOGLOBIN A1c% 6.9 % (4.27-6.07)
== END 2020-05-19 23:59 | disposition home or self-care (01) ==
LOC: LAB.WCP 09:35
PROVIDERS: ATTEND Physician Assistant Medical
DX: Z00.00 Encounter for general adult medical examination without abnormal findings (principal); E11.9 Type 2 diabetes mellitus without complications; E87.6 Hypokalemia; F33.0 Major depressive disorder, recurrent, mild; I10 Essential (primary) hypertension
CPT/HCPCS: 36415; 80053; 82043; 82570; 83036; 84443; 85025

== ENCOUNTER 2020-07-28 13:06 | Outpatient (CLI) | payer MEDICAID ==
[2020-07-28 17:50] LABS: BASOPHILS # (AUTO) 0.1 10^3/uL (0.0-0.1); BASOPHILS % (AUTO) 0.9 %; EOSINOPHILS # (AUTO) 0.1 10^3/uL (0.0-0.7); HCT - HEMATOCRIT 39.2 % (37.0-47.0); HGB - HEMOGLOBIN 12.2 g/dL (12.0-16.0); LYMPHOCYTES # (AUTO) 2.2 10^3/uL (1.5-3.5); LYMPHOCYTES % (AUTO) 20.4 %; MEAN CORPUSCULAR HEMOGLOBIN 26.8 pg (27.0-31.0); MEAN CORPUSCULAR HGB CONC 31.1 g/dL (32.0-36.0); MEAN PLATELET VOLUME 9.6 fL (7.9-10.8); MONOCYTES # (AUTO) 0.7 10^3/uL (0.0-1.0); MONOCYTES % (AUTO) 6.4 %; NEUTROPHILS # (AUTO) 7.8 10^3/uL (1.5-6.6); NEUTROPHILS % (AUTO) 70.9 %; PLT - PLATELET COUNT 547 10^3/uL (130-450); RED BLOOD COUNT 4.56 10^6/uL (4.20-5.40); RED CELL DISTRIBUTION WIDTH 12.5 % (12.0-15.0)
[2020-07-28 18:10] LABS: ALBUMIN 4.3 g/dL (3.2-5.5); ALBUMIN/GLOBULIN RATIO 0.9 (1.0-2.2); BILIRUBIN,TOTAL 0.6 mg/dL (0.2-1.0); CALCIUM 9.9 mg/dL (8.5-10.3); CREATININE 2.1 mg/dL (0.4-1.0); POTASSIUM 4.3 mmol/L (3.5-5.0); TOTAL PROTEIN 8.9 g/dL (6.7-8.2)
== END 2020-07-28 23:59 | disposition home or self-care (01) ==
LOC: LAB.N 13:06
PROVIDERS: ATTEND Family Medicine
DX: K52.9 Noninfective gastroenteritis and colitis, unspecified (principal)
CPT/HCPCS: 36415; 80053; 85025

== ENCOUNTER 2020-07-29 09:51 | Outpatient (CLI) | payer MEDICAID | END 2020-07-29 09:52 | disposition critical access hospital (66) | LOC: EMS 09:51 | DX: R53.1 Weakness (principal); R11.0 Nausea; E87.1 Hypo-osmolality and hyponatremia | CPT/HCPCS: A0425; A0429 ==

== ENCOUNTER 2020-07-29 10:13 | Emergency (ER) | payer MEDICAID ==
[2020-07-29] MEDS ORDERED: SODIUM CHLORIDE 0.9% 1,000 ML IV STA (10:21)
[2020-07-29] MEDS ORDERED: ONDANSETRON 4 MG/2 ML VIAL IVP STA (10:21)
--- NOTE | 2020-07-29 10:56 | ED Physician Documentation ---
History of Present Illness - Stated complaint Stated Complaint: LOW SODIUM - Chief complaint Chief Complaint: General - History obtained from History obtained from: Patient, EMS - Additonal information Additional information: PT was sent to the ED for "low sodium" per medics. Pt states she has been vomiting and having diarrhea for a few days, and has been feeling generally fatigued. No fever/chills. No abd pain. No blood in stool/vomit. Pt was seen yesterday by Dr. Smith, who ordered labs. Sodium was found to be 134, and creatinine 2.0. Per records, Dr. Casper reported that pt should come to the ED if not feeling better. Pt states someone called her at home and told her to take the ambulance to the ED for "low sodium". No other complaints at this time. Review of Systems Ten Systems: 10 systems reviewed and negative Constitutional: reports: Reviewed and negative Eyes: reports: Reviewed and negative Ears: reports: Reviewed and negative Nose: reports: Reviewed and negative Throat: reports: Reviewed and negative Cardiac: reports: Reviewed and negative Respiratory: reports: Reviewed and negative GI: reports: Nausea, Vomiting, Diarrhea : reports: Reviewed and negative Skin: reports: Reviewed and negative Musculoskeletal: reports: Reviewed and negative Neurologic: reports: Reviewed and negative Psychiatric: reports: Reviewed and negative Endocrine: reports: Reviewed and negative Immunocompromised: reports: Reviewed and negative PD PAST MEDICAL HISTORY - Past Medical History Cardiovascular: Hypertension, High cholesterol Respiratory: Asthma, COPD, Sleep apnea Neuro: None Endocrine/Autoimmune: Type 2 diabetes GI: GERD, Chronic diarrhea 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 HEENT: Chronic vision loss Psych: Depression, Anxiety, Panic attacks, Claustrophobia Musculoskeletal: Osteoarthritis Derm: None - Past Surgical History Past Surgical History: Yes General: Cholecystectomy, Colonoscopy Cardiovascular: Pacemaker - Present Medications Home Medications: Ambulatory Orders Medication Instructions Recorded Confirmed Aspirin [Aspir-Low] 81 mg PO DAILY 09/08/15 04/20/20 Pravastatin [Pravachol] 40 mg PO QPM 09/08/15 04/20/20 buPROPion [Wellbutrin Sr] 150 mg PO BID 09/08/15 04/20/20 Potassium Chloride [Micro-K] 10 meq PO DAILY 10/15/15 04/20/20 Albuterol Sulfate [Proventil Hfa 2 puffs INH Q4H PRN 04/08/18 04/20/20 Inhaler] Venlafaxine HCl [Venlafaxine HCl 150 mg PO DAILY 04/08/18 04/20/20 ER] hydroCHLOROthiazide 25 mg PO DAILY 04/08/18 04/20/20 [Hydrochlorothiazide] metFORMIN [Glucophage] 850 mg PO DAILYWM #30 tablet 04/09/18 04/20/20 Hydrocodone/Acetaminophen 1 each PO Q6HR PRN #10 tablet 08/08/18 04/20/20 [Hydrocodone-Acetamin 5-325 mg] Albuterol Sulf [Ventolin Hfa 1 - 2 puffs INH Q4HR PRN #1 inhaler 03/25/19 04/20/20 Inhaler] Azithromycin [Zithromax] 250 mg PO DAILY #6 tablet 03/25/19 04/20/20 predniSONE [Prednisone] 40 mg PO DAILY #10 tablet 03/25/19 04/20/20 Lactobacillus Acidophilus 1 each PO QDAC 14 Days #14 tab 04/02/20 04/20/20 [Acidophilus Lactobacilli] Cefpodoxime Proxetil [Vantin] 100 mg PO Q12H #14 tablet 04/20/20 - Allergies Allergies/Adverse Reactions: Allergies Allergy/AdvReac Type Severity Reaction Status Date / Time No Known Drug Allergies Allergy Verified 04/20/20 17:35 - Social History Does the pt smoke?: No Smoking Status: Never smoker Does the pt drink ETOH?: No Does the pt have substance abuse?: No - Immunizations Immunizations are current?: Yes - POLST Patient has POLST: No PD ED PE NORMAL - Vitals Vital signs reviewed: Yes - General General: Alert and oriented X 3, No acute distress, Well developed/nourished - HEENT HEENT: Atraumatic, PERRL, EOMI, Moist mucous membranes - Neck Neck: Supple, no meningeal sign - Cardiac Cardiac: RRR, No murmur, Strong equal pulses - Respiratory Respiratory: No respiratory distress, Clear bilaterally - Abdomen Abdomen: Normal bowel sounds, Soft, Non tender, Non distended - Derm Derm: Normal color, Warm and dry, No rash - Extremities Extremities: No deformity - Neuro Neuro: Alert and oriented X 3, cork grinder 2-12 intact, Normal speech, Other (grossly intact) - Psych Psych: Normal mood, Normal affect Results - Vitals Vitals: Vital Signs - 24 hr 07/29/20 07/29/20 10:15 11:52 Temperature 36.3 C L 36.0 C L Heart Rate 70 70 Respiratory 15 18 Rate Blood Pressure 143/100 H 112/72 O2 Saturation 99 94 Oxygen O2 Source Room air PD MEDICAL DECISION MAKING - ED course Complexity details: reviewed old records, considered differential, d/w patient ED course: I reviewed the pt's labs from yesterday, which showed a creatinine of 2.1, which was higher than the pt's usual of 1.4-1.8. Her GFR was 24, which was lower than usual, as had been noted by Dr. Casper. WBC count normal. I did not feel labs needed to be repeated, but I did feel pt was likely dehydrated, and should be treated with IV fluids and Zofran. This was done, and pt was found to be feeling better. We have discussed that pt's sodium is nearly normal, and is not an issue of concern at this time. We have discussed home management of sx, as well as the usual indications for return. Departure - Departure Disposition: 01 Home, Self Care Clinical Impression: Gastroenteritis, Dehydration Condition: Stable Instructions: ED Dehydration, ED Gastroenteritis Viral Comments: Your labs from the clinic showed mild dehydration, but actually, your sodium was nearly normal. The rest of your labs did not show any abnormalities of concern. You have been treated with IV fluids and antinausea medicine here. Your doctor, Dr. Smith, has prescribed the nausea medicine for at home, as well and you should get this prescription filled. Please follow-up with your primary doctor as needed. Discharge Date/Time: 07/29/20 12:01
[2020-07-29 11:53] VITALS: BP 112/72
== END 2020-07-29 12:01 | disposition home or self-care (01) ==
LOC: ED 10:13
DX: K52.9 Noninfective gastroenteritis and colitis, unspecified (principal); E86.0 Dehydration; I10 Essential (primary) hypertension; E11.9 Type 2 diabetes mellitus without complications; Z79.84 Long term (current) use of oral hypoglycemic drugs; Z79.82 Long term (current) use of aspirin
CPT/HCPCS: 96361; 96374; 99283

== ENCOUNTER 2020-07-30 10:41 | Outpatient (CLI) | payer MEDICAID | END 2020-07-30 10:42 | disposition critical access hospital (66) | LOC: EMS 10:41 | DX: R07.9 Chest pain, unspecified (principal) | CPT/HCPCS: A0425; A0429; A0999 ==

== ENCOUNTER 2020-07-30 11:04 | Emergency (ER) | payer MEDICAID ==
--- NOTE | 2020-07-30 11:26 | ED Physician Documentation ---
PD HPI CHEST PAIN - Stated complaint Stated Complaint: CP - Chief complaint Chief Complaint: Cardiac - History obtained from History obtained from: Patient - History of Present Illness Timing - onset: Last night, Yesterday Timing - onset during: Rest Timing - duration: Hours Timing - details: Abrupt onset, Still present, Waxing and waning Quality: Aching, Pain Location: Substernal, Epigastric Radiation: No: Jaw, Back Improved by: No: Rest Worsened by: No: Inspiration, Movement Associated symptoms: Nausea. No: Shortness of air, Feeling faint / dizzy Similar symptoms before: Has not had sx before Recently seen: Not recently seen Review of Systems Constitutional: denies: Fever, Chills Nose: denies: Rhinorrhea / runny nose, Congestion Throat: denies: Sore throat Cardiac: reports: Chest pain / pressure Respiratory: denies: Cough GI: denies: Nausea, Vomiting Musculoskeletal: denies: Extremity swelling Neurologic: denies: Generalized weakness, Near syncope PD PAST MEDICAL HISTORY - Past Medical History Cardiovascular: Hypertension, High cholesterol Respiratory: Asthma, COPD, Sleep apnea Neuro: None Endocrine/Autoimmune: Type 2 diabetes GI: GERD, Chronic diarrhea 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 : Incontinence HEENT: Chronic vision loss Psych: Depression, Anxiety, Panic attacks, Claustrophobia Musculoskeletal: Osteoarthritis Derm: None - Past Surgical History Past Surgical History: Yes General: Cholecystectomy, Colonoscopy Cardiovascular: Pacemaker - Present Medications Home Medications: Ambulatory Orders Medication Instructions Recorded Confirmed Aspirin [Aspir-Low] 81 mg PO DAILY 09/08/15 07/30/20 Pravastatin [Pravachol] 40 mg PO QPM 09/08/15 07/30/20 buPROPion [Wellbutrin Sr] 150 mg PO BID 09/08/15 07/30/20 Potassium Chloride [Micro-K] 10 meq PO DAILY 10/15/15 07/30/20 Venlafaxine HCl [Venlafaxine HCl 150 mg PO DAILY 04/08/18 07/30/20 ER] hydroCHLOROthiazide 25 mg PO DAILY 04/08/18 07/30/20 [Hydrochlorothiazide] Famotidine [Pepcid] 20 mg PO DAILY #20 tablet 07/30/20 Metoprolol Succinate [Toprol Xl] 50 mg PO DAILY 07/30/20 07/30/20 Omeprazole [PriLOSEC] 20 mg DAILY 07/30/20 07/30/20 Ondansetron Odt [Zofran Odt] 4 mg Q6HR PRN 07/30/20 07/30/20 Ondansetron Odt [Zofran] 4 mg TL Q6H PRN #15 tablet 07/30/20 metFORMIN [Glucophage] 1,000 mg PO BID 07/30/20 07/30/20 - Allergies Allergies/Adverse Reactions: Allergies Allergy/AdvReac Type Severity Reaction Status Date / Time No Known Drug Allergies Allergy Verified 07/30/20 11:13 - Social History Does the pt smoke?: No Smoking Status: Never smoker Does the pt drink ETOH?: No Does the pt have substance abuse?: No - Immunizations Immunizations are current?: Yes - POLST Patient has POLST: No PD ED PE NORMAL - Vitals Vital signs reviewed: Yes - General General: Alert and oriented X 3, No acute distress, Well developed/nourished - HEENT HEENT: Pharynx benign - Neck Neck: Supple, no meningeal sign, No adenopathy - Cardiac Cardiac: RRR, No murmur - Respiratory Respiratory: Clear bilaterally - Abdomen Abdomen: Normal bowel sounds, Soft, Non distended, No organomegaly, Other (some tenderness epigastric area without guarding. ) - Derm Derm: Normal color, Warm and dry - Extremities Extremities: No edema, No calf tenderness / cord - Neuro Neuro: Alert and oriented X 3, No motor deficit, Normal speech Results - Vitals Vitals: Vital Signs - 24 hr 07/30/20 07/30/20 11:13 12:00 Temperature 36.5 C Heart Rate 75 70 Respiratory 16 16 Rate Blood Pressure 127/95 H 128/70 O2 Saturation 100 95 Oxygen O2 Source Room air - EKG (time done) in ER Rhythm: NSR [place]: Normal Intervals: Normal NM QRS: Normal Ischemia: Normal ST segments. No: ST elevation c/w ischemia, ST depression - Labs Labs: Laboratory Tests 07/30/20 07/30/20 07/30/20 11:49 11:49 11:49 WBC 13.6 H RBC 4.06 L Hgb 11.2 L Hct 34.5 L MCV 85.0 MCH 27.6 MCHC 32.5 RDW 12.4 Plt Count 428 MPV 9.3 Neut # (Auto) 10.2 H Lymph # (Auto) 2.0 [place] # (Auto) 1.1 H Eos # (Auto) 0.2 Baso # (Auto) 0.1 Absolute Nucleated RBC 0.00 Nucleated RBC % 0.0 Sodium 135 Potassium 3.9 Chloride 100 L Carbon Dioxide 25 Anion Gap 10.0 BUN 33 H Creatinine 2.3 H Estimated GFR (MDRD) 21 L Glucose 149 H Calcium 9.4 Magnesium 1.9 Total Bilirubin 0.7 AST 17 ALT 13 Alkaline Phosphatase 116 Troponin I High Sens 4.7 B-Natriuretic Peptide Total Protein 8.0 Albumin 4.0 Globulin 4.0 Albumin/Globulin Ratio 1.0 Lipase 59 H 07/30/20 11:49 WBC RBC Hgb Hct MCV MCH MCHC RDW Plt Count MPV Neut # (Auto) Lymph # (Auto) [place] # (Auto) Eos # (Auto) Baso # (Auto) Absolute Nucleated RBC Nucleated RBC % Sodium Potassium Chloride Carbon Dioxide Anion Gap BUN Creatinine Estimated GFR (MDRD) Glucose Calcium Magnesium Total Bilirubin AST ALT Alkaline Phosphatase Troponin I High Sens B-Natriuretic Peptide 88 Total Protein Albumin Globulin Albumin/Globulin Ratio Lipase - Rads (name of study) chest xray Radiology: Prelim report reviewed (no acute process), See rad report PD MEDICAL DECISION MAKING - ED course Complexity details: considered differential (symptoms seem more likely stomach with reflux. Improved with GI meds. labs and ECG okay.), d/w patient Departure - Departure Disposition: 01 Home, Self Care Clinical Impression: Nausea, Dehydration, Decreased oral intake Gastritis Qualifiers: Gastritis type: unspecified gastritis Chronicity: acute Gastritis bleeding: without bleeding Qualified Code(s): K29.00 - Acute gastritis without bleeding Condition: Stable Record reviewed to determine appropriate education?: Yes Instructions: ED Gastritis Follow-Up: Olimpia Jasso PA-C [Primary Care Provider] - Prescriptions: Famotidine [Pepcid] 20 mg PO DAILY #20 tablet Ondansetron Odt [Zofran] 4 mg TL Q6H PRN #15 tablet PRN Reason: Nausea / Vomiting Comments: Your EKG, chest x-ray, blood tests do not show any signs of heart or lung problem. I presume your symptoms relate to irritated stomach and may be the cause of your nausea you have had recently and certainly likely worsened by not being able to eat well the last couple of days. Use ondansetron if needed for nausea. Famotidine twice daily for the next several days and then once daily for the next 2 to 3 weeks after that. Continue usual medications. Small frequent fluids and bland food for the next day or 2 and see how you feel with that intake. Your kidney function is off from baseline suggesting under hydration. Your sodium level is actually good at this point. Recheck if not improved well over the next day or 2 and return if worsening. You can add antacid such as Maalox or Mylanta periodically if needed for the chest/stomach pains. Discharge Date/Time: 07/30/20 12:55
--- NOTE | 2020-07-30 11:38 | XRAY Report ---
PROCEDURE: Chest 1 View X-Ray INDICATIONS: Chest pain TECHNIQUE: One view of the chest was acquired. COMPARISON: Chest x-ray 03/25/2019 FINDINGS: Surgical changes and devices: Pacemaker. Lungs and pleura: No pleural effusions or pneumothorax. Lungs are clear. Mediastinum: Mediastinal contours appear normal. Heart size is minimally prominent. Bones and chest wall: No suspicious bony lesions. Overlying soft tissues appear unremarkable. IMPRESSION: No acute pulmonary process. Reviewed by: Alexandra Ren MD on 07/30/2020 11:36 AM PDT Approved by: Alexandra Ren MD on 07/30/2020 11:36 AM PDT Station ID: [id number]
[2020-07-30] MEDS ORDERED: MAG HYDROX/AL HYDROX/SIMETH 30 ML UDC PO STA (11:45)
[2020-07-30] MEDS ORDERED: LIDOCAINE VISCOUS 2% 15 ML UDC MM STA (11:45)
[2020-07-30] MEDS ORDERED: ONDANSETRON 4 MG/2 ML VIAL IVP STA (11:45)
[2020-07-30] MEDS ORDERED: FAMOTIDINE 20 MG/2 ML VIAL IVP STA (11:45)
[2020-07-30 11:57] LABS: BASOPHILS # (AUTO) 0.1 10^3/uL (0.0-0.1); BASOPHILS % (AUTO) 0.6 %; EOSINOPHILS # (AUTO) 0.2 10^3/uL (0.0-0.7); EOSINOPHILS % (AUTO) 1.6 %; HCT - HEMATOCRIT 34.5 % (37.0-47.0); HGB - HEMOGLOBIN 11.2 g/dL (12.0-16.0); LYMPHOCYTES % (AUTO) 14.5 %; MEAN CORPUSCULAR HEMOGLOBIN 27.6 pg (27.0-31.0); MEAN CORPUSCULAR HGB CONC 32.5 g/dL (32.0-36.0); MEAN PLATELET VOLUME 9.3 fL (7.9-10.8); MONOCYTES # (AUTO) 1.1 10^3/uL (0.0-1.0); MONOCYTES % (AUTO) 8.1 %; NEUTROPHILS # (AUTO) 10.2 10^3/uL (1.5-6.6); NEUTROPHILS % (AUTO) 74.8 %; PLT - PLATELET COUNT 428 10^3/uL (130-450); RED BLOOD COUNT 4.06 10^6/uL (4.20-5.40); RED CELL DISTRIBUTION WIDTH 12.4 % (12.0-15.0); WHITE BLOOD COUNT 13.6 x10^3/uL (4.8-10.8)
[2020-07-30 12:15] LABS: BILIRUBIN,TOTAL 0.7 mg/dL (0.2-1.0); CALCIUM 9.4 mg/dL (8.5-10.3); CREATININE 2.3 mg/dL (0.4-1.0); MAGNESIUM 1.9 mg/dL (1.7-2.8); POTASSIUM 3.9 mmol/L (3.5-5.0)
[2020-07-30] MEDS ORDERED: SODIUM CHLORIDE 0.9% 1,000 ML IV STA (12:35)
[2020-07-30 14:05] VITALS: BP 128/70
== END 2020-07-30 12:55 | disposition home or self-care (01) ==
LOC: EDUNIT# → ED 11:04
DX: K29.00 Acute gastritis without bleeding (principal); K21.9 Gastro-esophageal reflux disease without esophagitis; E86.0 Dehydration; R11.0 Nausea; I10 Essential (primary) hypertension; E11.9 Type 2 diabetes mellitus without complications; Z79.84 Long term (current) use of oral hypoglycemic drugs; Z79.82 Long term (current) use of aspirin
CPT/HCPCS: 36415; 71045; 80053; 83690; 83735; 83880; 84484; 85025; 93005; 96374; 96375; 99284; A9270

== ENCOUNTER 2020-08-08 17:32 | Emergency (ER) | payer MEDICAID ==
[2020-08-08 18:36] LABS: GLUCOSE, URINE (UA) NEGATIVE (NEGATIVE); KETONES,URINE (UA) NEGATIVE (NEGATIVE); LEUKOCYTE ESTERASE, URINE MODERATE (NEGATIVE); NITRITE,URINE NEGATIVE (NEGATIVE); OCCULT BLOOD,URINE LARGE (NEGATIVE); PROTEIN,URINE 100 mg/dL (NEGATIVE); UROBILINOGEN,URINE 0.2 (NORMAL) E.U./dL (NORMAL)
[2020-08-08 18:44] LABS: BILIRUBIN,URINE NEGATIVE (NEGATIVE); CLARITY,URINE CLOUDY (CLEAR); ICTOTEST,URINE NEGATIVE
[2020-08-08 18:55] LABS: BACTERIA,URINE Many /HPF (None Seen); RBC,URINE TNTC /HPF (0-5); SQUAMOUS EPITHELIAL CELL,UR FEW Squamous (<= Few); WBC,URINE >25 /HPF (0-5)
--- NOTE | 2020-08-08 19:11 | ED Physician Documentation ---
PD HPI FEMALE - Stated complaint Stated Complaint: BLOOD IN URINE - Chief complaint Chief Complaint: UTI - History obtained from History obtained from: Patient - History of Present Illness Timing - onset: How many days ago (2) Timing - duration: Days (2) Timing - details: Gradual onset, Still present Associated symptoms: Dysuria, Urinary frequency. No: Fever, Vaginal discharge Contributing factors: No: Exposed to STD Similar symptoms before: Diagnosis (UTI a month ago, improved.) Review of Systems Constitutional: denies: Fever, Chills GI: denies: Abdominal Pain, Nausea, Vomiting : reports: Dysuria, Frequency. 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 HEENT: Chronic vision loss Psych: Depression, Anxiety, Panic attacks, Claustrophobia Musculoskeletal: Osteoarthritis Derm: None - Past Surgical History Past Surgical History: Yes General: Cholecystectomy, Colonoscopy Cardiovascular: Pacemaker - Present Medications Home Medications: Ambulatory Orders Medication Instructions Recorded Confirmed Aspirin [Aspir-Low] 81 mg PO DAILY 09/08/15 07/30/20 Pravastatin [Pravachol] 40 mg PO QPM 09/08/15 07/30/20 buPROPion [Wellbutrin Sr] 150 mg PO BID 09/08/15 07/30/20 Potassium Chloride [Micro-K] 10 meq PO DAILY 10/15/15 07/30/20 Venlafaxine HCl [Venlafaxine HCl 150 mg PO DAILY 04/08/18 07/30/20 ER] hydroCHLOROthiazide 25 mg PO DAILY 04/08/18 07/30/20 [Hydrochlorothiazide] Famotidine [Pepcid] 20 mg PO DAILY #20 tablet 07/30/20 Metoprolol Succinate [Toprol Xl] 50 mg PO DAILY 07/30/20 07/30/20 Omeprazole [PriLOSEC] 20 mg DAILY 07/30/20 07/30/20 Ondansetron Odt [Zofran Odt] 4 mg Q6HR PRN 07/30/20 07/30/20 Ondansetron Odt [Zofran] 4 mg TL Q6H PRN #15 tablet 07/30/20 metFORMIN [Glucophage] 1,000 mg PO BID 07/30/20 07/30/20 Phenazopyridine HCl [Pyridium] 100 mg PO TID PRN #15 tablet 08/08/20 cephALEXin [Keflex] 500 mg PO TID 5 Days #15 cap 08/08/20 - Allergies Allergies/Adverse Reactions: Allergies Allergy/AdvReac Type Severity Reaction Status Date / Time No Known Drug Allergies Allergy Verified 08/08/20 17:58 - Social History Does the pt smoke?: No Smoking Status: Never smoker Does the pt drink ETOH?: No Does the pt have substance abuse?: No - Immunizations Immunizations are current?: Yes - POLST Patient has POLST: No PD ED PE NORMAL - Vitals Vital signs reviewed: Yes - General General: Alert and oriented X 3, No acute distress, Well developed/nourished - Abdomen Abdomen: Soft, Non tender - Back Back: No CVA TTP - Derm Derm: Normal color, Warm and dry - Neuro Neuro: Alert and oriented X 3, No motor deficit, Normal speech Results - Vitals Vitals: Oxygen O2 Source Room air - Labs Labs: Microbiology 08/08/20 18:00 Urine Culture - Final Urine,Clean Catch Beta Hemolytic Strep Group B Laboratory Tests 08/08/20 18:00 Urine Color BROWN Urine Clarity CLOUDY Urine pH 5.0 Ur Specific [place] 1.025 Urine Protein 100 H Urine Glucose (UA) NEGATIVE Urine Ketones NEGATIVE Urine Occult Blood LARGE H Urine Nitrite NEGATIVE Urine Bilirubin NEGATIVE Urine Urobilinogen 0.2 (NORMAL) Ur Leukocyte Esterase MODERATE H Urine RBC TNTC H Urine WBC >25 H Ur Squamous Epith Cells FEW Squamous Urine Bacteria Many H Ur Microscopic Review INDICATED Urine Culture Comments INDICATED PD MEDICAL DECISION MAKING - ED course Complexity details: reviewed results, considered differential, d/w patient Departure - Departure Disposition: 01 Home, Self Care Clinical Impression: Cystitis Condition: Stable Record reviewed to determine appropriate education?: Yes Follow-Up: Olimpia Jasso PA-C [Primary Care Provider] - Prescriptions: cephALEXin [Keflex] 500 mg PO TID 5 Days #15 cap Phenazopyridine HCl [Pyridium] 100 mg PO TID PRN #15 tablet PRN Reason: Abdominal Pain Comments: Stay well hydrated. Continue usual medications. Add Keflex three times daily for 5 days. Pyridium 3 times daily for symptoms. Recheck if not improved over the next few days. Diagnosis: urinary tract infection Discharge Date/Time: 08/08/20 19:32
[2020-08-08] MEDS ORDERED: cephALEXin 250 MG CAPSULE PO STA (19:14)
[2020-08-08] MEDS ORDERED: PHENAZOPYRIDINE 100 MG TABLET PO STA (19:14)
[2020-08-08 19:33] VITALS: BP 136/78
== END 2020-08-08 19:32 | disposition home or self-care (01) ==
LOC: ED 17:32
DX: N30.90 Cystitis, unspecified without hematuria (principal)
CPT/HCPCS: 81001; 87077; 87086; 99283; A9270; 81003

== ENCOUNTER 2020-08-11 17:46 | Emergency (ER) | payer MEDICARE, MEDICAID ==
[2020-08-11 18:18] LABS: BASOPHILS # (AUTO) 0.1 10^3/uL (0.0-0.1); BASOPHILS % (AUTO) 0.7 %; EOSINOPHILS # (AUTO) 0.1 10^3/uL (0.0-0.7); EOSINOPHILS % (AUTO) 1.1 %; HCT - HEMATOCRIT 36.8 % (37.0-47.0); HGB - HEMOGLOBIN 11.9 g/dL (12.0-16.0); LYMPHOCYTES # (AUTO) 2.3 10^3/uL (1.5-3.5); LYMPHOCYTES % (AUTO) 18.8 %; MEAN CORPUSCULAR HEMOGLOBIN 27.4 pg (27.0-31.0); MEAN CORPUSCULAR HGB CONC 32.3 g/dL (32.0-36.0); MEAN CORPUSCULAR VOLUME 84.8 fL (81.0-99.0); MEAN PLATELET VOLUME 9.2 fL (7.9-10.8); MONOCYTES # (AUTO) 0.9 10^3/uL (0.0-1.0); MONOCYTES % (AUTO) 7.5 %; NEUTROPHILS # (AUTO) 8.8 10^3/uL (1.5-6.6); NEUTROPHILS % (AUTO) 71.7 %; PLT - PLATELET COUNT 479 10^3/uL (130-450); RED BLOOD COUNT 4.34 10^6/uL (4.20-5.40); WHITE BLOOD COUNT 12.2 x10^3/uL (4.8-10.8)
[2020-08-11 18:33] LABS: ALBUMIN 4.3 g/dL (3.2-5.5); BILIRUBIN,TOTAL 0.7 mg/dL (0.2-1.0); CALCIUM 9.7 mg/dL (8.5-10.3); CREATININE 2.2 mg/dL (0.4-1.0); POTASSIUM 3.6 mmol/L (3.5-5.0); TOTAL PROTEIN 8.7 g/dL (6.7-8.2)
[2020-08-11 18:40] LABS: GLUCOSE, URINE (UA) 100 mg/dL (NEGATIVE); KETONES,URINE (UA) TRACE mg/dL (NEGATIVE); LEUKOCYTE ESTERASE, URINE SMALL (NEGATIVE); NITRITE,URINE POSITIVE (NEGATIVE); OCCULT BLOOD,URINE LARGE (NEGATIVE); PH,URINE 6.5 PH (5.0-7.5); PROTEIN,URINE >=300 mg/dL (NEGATIVE); UROBILINOGEN,URINE 4 E.U./dL (NORMAL)
[2020-08-11 18:45] LABS: BILIRUBIN,URINE MODERATE (NEGATIVE); CLARITY,URINE CLOUDY (CLEAR); ICTOTEST,URINE POSITIVE
[2020-08-11 18:56] LABS: BACTERIA,URINE Few /HPF (None Seen); EPITHELIAL CELLS,UR FEW Transitional /HPF (<= Few); RBC,URINE TNTC /HPF (0-5); SQUAMOUS EPITHELIAL CELL,UR FEW Squamous (<= Few)
[2020-08-11 18:57] LABS: AMORPHOUS SEDIMENT,UR Moderate /LPF
--- NOTE | 2020-08-11 21:15 | ED Physician Documentation ---
History of Present Illness - Stated complaint Stated Complaint: NAUSEA,VOMITING,NO ENERGY - Chief complaint Chief Complaint: Abd Pain - History obtained from History obtained from: Patient - History of Present Illness Timing: How many weeks ago (1) Pain level now: 2 (suprapubic) Improved by: nothing Worsened by: no exacerbating factors - Additonal information Additional information: c/o 1 week of nausea although denies vomiting. She c/o fatigue, no energy (per patient). She c/o episodic abdominal cramping, predominantly lower abdomen, x 1 week. She was T+R from this ED 3 days ago for UTI, has taken 3 (of 5) days of keflex (UA grew out beta strep). Review of Systems Constitutional: reports: Myalgias, Fatigue. denies: Fever, Chills, Sweats Cardiac: reports: Reviewed and negative Respiratory: reports: Reviewed and negative GI: reports: Abdominal Pain, Nausea. 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 : Incontinence HEENT: Chronic vision loss Psych: Depression, Anxiety, Panic attacks, Claustrophobia Musculoskeletal: Osteoarthritis Derm: None - Past Surgical History Past Surgical History: Yes General: Cholecystectomy, Colonoscopy Cardiovascular: Pacemaker - Present Medications Home Medications: Ambulatory Orders Medication Instructions Recorded Confirmed Aspirin [Aspir-Low] 81 mg PO DAILY 09/08/15 07/30/20 Pravastatin [Pravachol] 40 mg PO QPM 09/08/15 07/30/20 buPROPion [Wellbutrin Sr] 150 mg PO BID 09/08/15 07/30/20 Potassium Chloride [Micro-K] 10 meq PO DAILY 10/15/15 07/30/20 Venlafaxine HCl [Venlafaxine HCl 150 mg PO DAILY 04/08/18 07/30/20 ER] hydroCHLOROthiazide 25 mg PO DAILY 04/08/18 07/30/20 [Hydrochlorothiazide] Famotidine [Pepcid] 20 mg PO DAILY #20 tablet 07/30/20 Metoprolol Succinate [Toprol Xl] 50 mg PO DAILY 07/30/20 07/30/20 Omeprazole [PriLOSEC] 20 mg DAILY 07/30/20 07/30/20 Ondansetron Odt [Zofran Odt] 4 mg Q6HR PRN 07/30/20 07/30/20 Ondansetron Odt [Zofran] 4 mg TL Q6H PRN #15 tablet 07/30/20 metFORMIN [Glucophage] 1,000 mg PO BID 07/30/20 07/30/20 Phenazopyridine HCl [Pyridium] 100 mg PO TID PRN #15 tablet 08/08/20 cephALEXin [Keflex] 500 mg PO TID 5 Days #15 cap 08/08/20 Amox/Clav 875/125 [Augmentin 1 tablet PO Q12H 7 Days #14 tablet 08/12/20 875/125 Tab] Ondansetron Odt [Zofran] 4 mg TL Q6H PRN #10 tablet 08/12/20 - Allergies Allergies/Adverse Reactions: Allergies Allergy/AdvReac Type Severity Reaction Status Date / Time No Known Drug Allergies Allergy Verified 08/11/20 17:54 - Social History Does the pt smoke?: No Smoking Status: Never smoker Does the pt drink ETOH?: No Does the pt have substance abuse?: No - Immunizations Immunizations are current?: Yes - POLST Patient has POLST: No PD ED PE NORMAL - Vitals Vital signs reviewed: Yes - General General: Alert and oriented X 3, No acute distress, Well developed/nourished - HEENT HEENT: Moist mucous membranes - Neck Neck: Supple, no meningeal sign - Cardiac Cardiac: No murmur - Respiratory Respiratory: No respiratory distress, Clear bilaterally - Abdomen Abdomen: Soft, Non tender - Neuro Neuro: Alert and oriented X 3 Results - Vitals Vitals: Oxygen O2 Source Room air - Labs Labs: Microbiology 08/11/20 18:00 Urine Culture - Preliminary Urine,Clean Catch CULTURE IN PROGRESS. RESULTS TO FOLLOW. Laboratory Tests 08/11/20 08/11/20 08/11/20 18:00 18:15 18:15 WBC 12.2 H RBC 4.34 Hgb 11.9 L Hct 36.8 L MCV 84.8 MCH 27.4 MCHC 32.3 RDW 13.0 Plt Count 479 H MPV 9.2 Neut # (Auto) 8.8 H Lymph # (Auto) 2.3 [place] # (Auto) 0.9 Eos # (Auto) 0.1 Baso # (Auto) 0.1 Absolute Nucleated RBC 0.00 Nucleated RBC % 0.0 Sodium 136 Potassium 3.6 Chloride 96 L Carbon Dioxide 28 Anion Gap 12.0 BUN 23 H Creatinine 2.2 H Estimated GFR (MDRD) 22 L Glucose 147 H Calcium 9.7 Total Bilirubin 0.7 AST 17 ALT 12 Alkaline Phosphatase 119 Total Protein 8.7 H Albumin 4.3 Globulin 4.4 H Albumin/Globulin Ratio 1.0 Lipase 37 Urine Color BROWN Urine Clarity CLOUDY Urine pH 6.5 Ur Specific [place] >=1.030 H Urine Protein >=300 H Urine Glucose (UA) 100 H Urine Ketones TRACE Urine Occult Blood LARGE H Urine Nitrite POSITIVE H Urine Bilirubin MODERATE H Urine Urobilinogen 4 H Ur Leukocyte Esterase SMALL H Urine RBC TNTC H Urine WBC 4-5 Ur Epithelial Cells FEW Transitional Ur Squamous Epith Cells FEW Squamous Amorphous Sediment Moderate Urine Bacteria Few Ur Microscopic Review INDICATED Urine Culture Comments INDICATED - Rads (name of study) CT A/P Radiology: Prelim report reviewed, See rad report PD MEDICAL DECISION MAKING - ED course Complexity details: reviewed old records, reviewed results, re-evaluated patient, considered differential, d/w patient ED course: No apparent etiology for her (vague) symptoms of malaise, nausea x 1 week. She describes intermittent abdominal discomfort. She initially says she hasnt had a bowel movement x 1 week, then recalls she had diarrhea sometime in the past few days. Her urinalysis has some features suggestive of UTI (macro with nitrates, leukocytes, rbc, although micro is not a clear picture of UTI). This result might represent partially treated UTI, and she is given augmentin and will be switched from keflex to augmentin. Return precautions reviewed, and she is also instructed to follow up with her PCP. Her kidney function tests are abnormal, similar to recent previous results although this is trending upward (increasingly abnormal bun/creatinine) and thus should be reevaluated in outpatient setting. Departure - Departure Disposition: 01 Home, Self Care Clinical Impression: Urinary tract infection Qualifiers: Urinary tract infection type: acute cystitis Hematuria presence: with hematuria Qualified Code(s): N30.01 - Acute cystitis with hematuria Condition: Good Instructions: ED UTI Cystitis Female Follow-Up: Young,Olimpia L, PA-C [Primary Care Provider] - (Call to arrange for next available appointment. If possible, reevaluation within the next 3-5 days would be ideal) Prescriptions: Amox/Clav 875/125 [Augmentin 875/125 Tab] 1 tablet PO Q12H 7 Days #14 tablet Ondansetron Odt [Zofran] 4 mg TL Q6H PRN #10 tablet PRN Reason: Nausea / Vomiting Comments: You are being prescribed a new antibiotic (different than the previous one). Stop the previous antibiotic and take the one prescribed tonight as directed Discharge Date/Time: 08/12/20 01:58
[2020-08-11] MEDS ORDERED: ONDANSETRON ODT 4 MG TABLET TL STA (21:31)
[2020-08-12] MEDS ORDERED: ONDANSETRON ODT 4 MG TABLET TL STA (01:22)
[2020-08-12] MEDS ORDERED: AMOX/CLAV 875 MG/125 MG TABLET PO STA (01:22)
[2020-08-12 01:59] VITALS: BP 109/75
--- NOTE | 2020-08-12 09:46 | CT Report ---
PROCEDURE: Abdomen/Pelvis WO INDICATIONS: abdominal pain TECHNIQUE: Noncontrast 5 mm thick sections acquired from the diaphragms to the symphysis. 5 mm coronal and sagi ttal reformats were then performed. For radiation dose reduction, the following was used: automated exposure control, adjustment of mA and/or kV according to patient size. COMPARISON: None. FINDINGS: Image quality: Excellent. ABDOMEN: Lung bases: Lung bases are clear. Heart size is normal. Solid organs: Liver and spleen are normal in size. Gallbladder has been previously resected Pancre as is normal in contours. No adrenal nodules. Kidneys are normal in size, without hydronephrosis bu t there is a 3 x 3 mm right-sided lower collecting system calculus that does not appear obstructive. There is a subtle abnormality involving the renal pelvis on the right where a slight increased radiod ensity is present, and the contour of the renal pelvis appears mildly enlarged when compared to the p rior study from 04/20/2020. The appearance could represent internal blood clot, or even possibly a mas s. This contour and increased radiodensity, however, was not present only 4 months ago.. Peritoneum and bowel: Unenhanced bowel loops demonstrate normal wall thickness and caliber. No free fluid or air. Nodes and vessels: No retroperitoneal or mesenteric adenopathy by size criteria. Aorta and inferior vena cava are normal in caliber. Generalized mild to moderate colonic obstipation. Miscellaneous: No ventral hernias. PELVIS: Genitourinary: Bladder wall thickness is normal. Miscellaneous: No inguinal hernias or adenopathy. Normal appendix found. Bones: No suspicious bony lesions. No vertebral body compression fractures. IMPRESSION: 1. Mild to moderate colonic obstipation. No diverticulitis found. Normal appendix identified. 2. 3 mm nonobstructive right lower renal collecting system calculus. 3. There is an unexpected finding at the right renal pelvis where the contour of the renal pelvis has become mildly bulbous, and there is a subtle increased radiodensity within that portion of the renal pelvis when compared to normal renal parenchyma elsewhere. This could represent a clot within. Corre late for hematuria. Alternatively, it could represent evidence of a mass that has developed but this is considered relatively unlikely given the 4 month interval from normal appearance in April of this year to the current appearance. CT renal protocol without and with contrast likely is warranted. Note: These findings and recommendation were called to the emergency room physician at time of this dictation, who will contact the patient for a ranging follow-up renal tumor protocol CT scanning with out and with contrast.. Reviewed by: Danis Jiménez MD on 08/12/2020 9:44 AM PDT Approved by: Danis Jiménez MD on 08/12/2020 9:44 AM PDT Station ID: [id number]
== END 2020-08-12 01:58 | disposition home or self-care (01) ==
LOC: ED 17:46
DX: N30.01 Acute cystitis with hematuria (principal)
CPT/HCPCS: 36415; 74176; 80053; 81001; 83690; 85025; 87086; 99284; A9270; Q0162; 81003

== ENCOUNTER 2020-08-18 14:30 | Outpatient (CLI) | payer MEDICARE, MEDICAID ==
[2020-08-18 18:05] LABS: BASOPHILS # (AUTO) 0.1 10^3/uL (0.0-0.1); BASOPHILS % (AUTO) 0.7 %; EOSINOPHILS # (AUTO) 0.5 10^3/uL (0.0-0.7); EOSINOPHILS % (AUTO) 5.7 %; HCT - HEMATOCRIT 34.6 % (37.0-47.0); HGB - HEMOGLOBIN 10.7 g/dL (12.0-16.0); LYMPHOCYTES # (AUTO) 1.9 10^3/uL (1.5-3.5); LYMPHOCYTES % (AUTO) 21.4 %; MEAN CORPUSCULAR HEMOGLOBIN 26.8 pg (27.0-31.0); MEAN CORPUSCULAR HGB CONC 30.9 g/dL (32.0-36.0); MEAN CORPUSCULAR VOLUME 86.7 fL (81.0-99.0); MEAN PLATELET VOLUME 9.8 fL (7.9-10.8); MONOCYTES # (AUTO) 0.6 10^3/uL (0.0-1.0); NEUTROPHILS # (AUTO) 5.7 10^3/uL (1.5-6.6); NEUTROPHILS % (AUTO) 64.9 %; PLT - PLATELET COUNT 401 10^3/uL (130-450); RED BLOOD COUNT 3.99 10^6/uL (4.20-5.40); WHITE BLOOD COUNT 8.8 x10^3/uL (4.8-10.8)
[2020-08-18 18:14] LABS: CALCIUM 8.8 mg/dL (8.5-10.3); CREATININE 1.5 mg/dL (0.4-1.0); POTASSIUM 3.3 mmol/L (3.5-5.0)
== END 2020-08-18 23:59 | disposition home or self-care (01) ==
LOC: LAB.WCP 14:30
PROVIDERS: ATTEND Family Medicine
DX: N18.2 Chronic kidney disease, stage 2 (mild) (principal); N28.89 Other specified disorders of kidney and ureter; R31.9 Hematuria, unspecified
CPT/HCPCS: 36415; 80048; 85025

== ENCOUNTER 2020-08-19 10:03 | Outpatient (CLI) | payer MEDICARE, MEDICAID ==
[2020-08-19 12:01] LABS: CALCIUM 9.5 mg/dL (8.5-10.3); CREATININE 1.5 mg/dL (0.4-1.0); POTASSIUM 3.7 mmol/L (3.5-5.0)
[2020-08-19 12:21] LABS: ESTIMATED AVERAGE GLUCOSE 166 mg/dL (70-100); HEMOGLOBIN A1c% 7.4 % (4.27-6.07)
== END 2020-08-19 23:59 | disposition home or self-care (01) ==
LOC: LAB.WCP 10:03
PROVIDERS: ATTEND Physician Assistant Medical
DX: E11.9 Type 2 diabetes mellitus without complications (principal)
CPT/HCPCS: 36415; 80048; 83036

== ENCOUNTER 2020-09-17 12:40 | Outpatient (CLI) | payer MEDICAID ==
--- NOTE | 2020-09-17 14:26 | DEXA Report ---
PROCEDURE: Dexa Spine and/or Hip INDICATIONS: POST MENOPAUSAL TECHNIQUE: Dual energy x-ray absorptiometry (DXA) was performed on a Guesty System. Regions measur ed are the AP Spine, femoral neck, and if needed forearm. COMPARISON: None. FINDINGS: Lumbar Spine: Bone Mineral Density 0.991 g/cm/cm,T score -1.6, osteopenia Left Femoral Neck: Bone Mineral Density 0.733 g/cm/cm, T score -2.2, osteopenia (T score greater or equal to -1.0: NORMAL) (T score from -1.1 to -2.4: OSTEOPENIA) (T score less than or equal to -2.5 to: OSTEOPOROSIS) Impression: Osteopenia. Patients with diagnosis of osteoporosis or osteopenia should have regular bone mineral density assess ment. For those eligible for Medicare, routine testing is allowed once every 2 years. Testing frequ ency can be increased for patients who have rapidly progressing disease or for those who are receivin g medical therapy to restore bone mass. Reviewed by: Will Gatica MD on 09/17/2020 2:25 PM PDT Approved by: Will Gatica MD on 09/17/2020 2:25 PM PDT Station ID: [id number]
== END 2020-09-17 12:41 | disposition home or self-care (01) ==
LOC: DI 12:40
PROVIDERS: ATTEND Physician Assistant Medical
DX: Z78.0 Asymptomatic menopausal state (principal); M85.89 Other specified disorders of bone density and structure, multiple sites; N28.89 Other specified disorders of kidney and ureter; N20.0 Calculus of kidney; N13.30 Unspecified hydronephrosis
CPT/HCPCS: 74178; 77080; Q9967

== ENCOUNTER 2020-09-17 12:42 | Outpatient (CLI) | payer MEDICAID ==
[2020-09-17] MEDS ORDERED: IOPAMIDOL-300 100 ML VIAL ONE (13:52)
[2020-09-17] MEDS: IOPAMIDOL-300 100 ML VIAL IVP ONE ×2 (14:19→18:45)
--- NOTE | 2020-09-18 09:23 | CT Report ---
PROCEDURE: ABDOMEN/PELVIS W/WO INDICATIONS: RENAL MASS CONTRAST: IV CONTRAST: Isovue 300 ml: 140 PO CONTRAST: *NO PO CONTRAST TECHNIQUE: After the administration of oral and intravenous contrast, 5 mm thick sections acquired from the diap hragms to the symphysis. 5 mm thick coronal and sagittal reformats were acquired. For radiation dos e reduction, the following was used: automated exposure control, adjustment of mA and/or kV accordin g to patient size. COMPARISON: CT abdomen and pelvis without contrast 08/11/2020, 04/20/2020. FINDINGS: Image quality: Excellent. Lung bases: Left lung base subpleural pulmonary nodule measuring 0.5 cm, (10/06), unchanged. Heart siz e is normal. Pacemaker leads. Urinary system: There is asymmetric decreased enhancement of the right kidney compared to the left. N o opacified excreted contrast from the right kidney and there is robust excretion from the left. Ther e is right kidney caliectasis which is similar to 08/11/2020. The right renal pelvis is minimally pat ulous. No right hydroureter. There is mild stranding surrounding the right kidney. No enhancing mass is seen. There is a nonobstructing calculus at the inferior pole the right kidney measuring 0.2-0.3 c m. No left hydronephrosis. No filling defect within the opacified left ureter. Other solid organs: Liver and spleen are normal in size and enhancement. No focal lesion. Gallbladde r is surgically absent. Orphaned clips near the inferior margin of liver. Biliary system is non dil ated. Pancreas enhances normally. No adrenal nodules. Peritoneum and bowel: Bowel loops demonstrate normal wall thickness and caliber. The appendix is no t distended. No free fluid or air. Nodes and vessels: No retroperitoneal or mesenteric adenopathy by size criteria. Aorta and inferior vena cava are normal in size. There is mild calcified plaque in the abdominal aorta. There is mild p laque at the origin of the left renal artery. The renal arteries opacify with contrast. Abdominal wall: No ventral hernias. Pelvis: No pathologic free pelvic fluid. Vertically oriented uterus. No inguinal hernias or adenopa thy. Bones: No suspicious bony lesions. No vertebral body compression fractures. IMPRESSION: 1. Decreased enhancement of the right kidney with no excreted contrast demonstrated. Mild right kidne y hydronephrosis without hydroureter. 2. No enhancing renal mass is identified. 3. Small nonobstructing right kidney stone. Recommend urology consultation. Nuclear medicine renal scan may be helpful for further evaluation. Reviewed by: Panfilo Melendez MD on 09/18/2020 9:10 AM PDT Approved by: Panfilo Melendez MD on 09/18/2020 9:10 AM PDT Station ID: [id number]
== END 2020-09-17 12:43 | disposition home or self-care (01) ==
LOC: DI 12:42
PROVIDERS: ATTEND Physician Assistant Medical
DX: N28.89 Other specified disorders of kidney and ureter (principal); N20.0 Calculus of kidney; N13.30 Unspecified hydronephrosis

== ENCOUNTER 2021-01-11 11:38 | Emergency (ER) | payer MEDICARE, MEDICAID ==
[2021-01-11] MEDS ORDERED: SODIUM CHLORIDE 0.9% 1,000 ML IV STA ×2 (12:21→14:00)
[2021-01-11] MEDS ORDERED: ONDANSETRON 4 MG/2 ML VIAL IVP STA (12:21)
[2021-01-11] MEDS ORDERED: HYDROmorphone 1 MG/ML CARPUJECT IVP STA (12:21)
--- NOTE | 2021-01-11 12:21 | ED Physician Documentation ---
History of Present Illness - Stated complaint Stated Complaint: RT SIDE/BACK PX - Chief complaint Chief Complaint: Abd Pain - Additonal information Additional information: 65-year-old female who has a history of a developmental delay presents to the emergency department for evaluation of uncontrolled pain. 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 Patient is scheduled to see an oncologist at [facility] in 48 hours time. Her sister who is visiting from [place] reports that the patient has been eating and drinking very little and is concerned she may be dehydrated. She did give her sister to oxycodone this morning but found that it did not relieve the pain. There are no fevers. No recent weight loss. History is obtained from the chart, [facility] medical record paperwork given to this provider by the sister. Review of Systems Constitutional: denies: Fever, Chills Eyes: reports: Reviewed and negative Throat: reports: Reviewed and negative Cardiac: reports: Reviewed and negative Respiratory: reports: Reviewed and negative GI: reports: Abdominal Pain, Constipation. 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 HEENT: Chronic vision loss Psych: Depression, Anxiety, Panic attacks, Claustrophobia Musculoskeletal: Osteoarthritis Derm: None - Past Surgical History Past Surgical History: Yes General: Cholecystectomy, Colonoscopy Cardiovascular: Pacemaker - Present Medications Home Medications: Ambulatory Orders Medication Instructions Recorded Confirmed buPROPion [Wellbutrin Sr] 150 mg PO BID 09/08/15 01/11/21 Venlafaxine HCl [Venlafaxine HCl 150 mg PO DAILY 04/08/18 01/11/21 ER] Metoprolol Succinate [Toprol Xl] 50 mg PO DAILY 07/30/20 01/11/21 Ondansetron Odt [Zofran Odt] 4 mg Q6HR PRN 07/30/20 07/30/20 Ondansetron Odt [Zofran] 4 mg TL Q6H PRN #15 tablet 07/30/20 01/11/21 Ondansetron Odt [Zofran] 4 mg TL Q6H PRN #10 tablet 08/12/20 01/11/21 Cefpodoxime Proxetil [Vantin] 100 mg PO Q12H #20 tablet 01/11/21 - Allergies Allergies/Adverse Reactions: Allergies Allergy/AdvReac Type Severity Reaction Status Date / Time No Known Drug Allergies Allergy Verified 01/11/21 11:50 - Social History Does the pt smoke?: No Smoking Status: Never smoker Does the pt drink ETOH?: No Does the pt have substance abuse?: No - Immunizations Immunizations are current?: Yes - POLST Patient has POLST: No PD ED PE EXPANDED - General General: Alert, No acute distress, Well developed/nourished - Cardiac Cardiac: Regular Rate, Radial strong equal, Pedal strong equal, Cap refill < 2 sec - Respiratory Respiratory: Clear to ausultation mayda. No: Distress, Labored - Abdomen Abdomen: Normal Bowel sounds (unable to elicit any abdominal tenderness on exam). No: Tender to palpation - Derm Derm: Normal color, Warm and dry. No: Rash - Extremities Extremities: Normal. No: Deformity, Tenderness Results - Vitals Vitals: Vital Signs - 24 hr 01/11/21 01/11/21 01/11/21 11:50 12:59 14:00 Temperature 36.3 C L Heart Rate 96 89 89 Respiratory 18 16 16 Rate Blood Pressure 116/73 131/67 H 124/61 O2 Saturation 98 98 94 Oxygen O2 Source Room air - Labs Labs: Laboratory Tests 01/11/21 01/11/21 01/11/21 12:44 12:44 14:30 WBC 14.6 H RBC 4.00 L Hgb 10.2 L Hct 33.4 L MCV 83.5 MCH 25.5 L MCHC 30.5 L RDW 16.1 H Plt Count 528 H MPV 8.8 Neut # (Auto) 11.0 H Lymph # (Auto) 1.7 [place] # (Auto) 1.4 H Eos # (Auto) 0.3 Baso # (Auto) 0.1 Absolute Nucleated RBC 0.00 Nucleated RBC % 0.0 Sodium 132 L Potassium 4.1 Chloride 96 L Carbon Dioxide 24 Anion Gap 12.0 BUN 24 H Creatinine 1.6 H Estimated GFR (MDRD) 32 L Glucose 162 H Calcium 9.2 Total Bilirubin 0.6 AST 81 H ALT 46 Alkaline Phosphatase 443 H Total Protein 8.0 Albumin 3.2 Globulin 4.8 H Albumin/Globulin Ratio 0.7 L Lipase 38 Urine Color BROWN Urine Clarity CLOUDY Urine pH 5.0 Ur Specific [place] >=1.030 H Urine Protein 100 H Urine Glucose (UA) NEGATIVE Urine Ketones TRACE Urine Occult Blood LARGE H Urine Nitrite POSITIVE H Urine Bilirubin NEGATIVE Urine Urobilinogen 1 (NORMAL) Ur Leukocyte Esterase NEGATIVE Urine RBC TNTC H Urine WBC 4-5 Ur Squamous Epith Cells FEW Squamous Urine Crystals 6-10 Calcium Oxalate Urine Bacteria Many H Ur Microscopic Review INDICATED Urine Culture Comments INDICATED PD MEDICAL DECISION MAKING - ED course Complexity details: reviewed results, re-evaluated patient, d/w patient, d/w literacy consultant ED course: 65 year old female here who diagnosed with right-sided kidney and liver mass secondary to papillary urothelial carcinoma presents with worsening lower abdominal pain. Pt has a f/u appointment with Oncology on monday. Patient is developmentally delayed and so history is somewhat limited. She was also recently treated for a urinary tract infection at [facility]. Screening labs do show a modest leukocytosis approaching 15,000. Screening electrolytes are without worrisome derangement. Her urine however is frankly consistent with infection. Patient will be started on Cefpodoxime twice daily for the next 10 days. Patient was given a liter of IV fluids. Though she presented with reported increasing lower abdominal pain none was elicited on exam and she recently had CT imaging at [place] which does show her cancer. Given otherwise relative stability further imaging was deferred today. Patient sister is in attendance. We discussed her recent narcotic prescriptions that the patient has received. It is unclear to both this provider and her sister whether the patient is adequately taking the oxycodone at home. The patient's brother who also helps care for her is quite adamant that she does not take as much oxycodone as she has been prescribed and there is a question whether caregivers or others coming into the home may be Ms. appropriating medications. Here in the ER patient was given a dose of Dilaudid with good improvement in symptoms. She will be discharged home. Emergent return precautions were discussed. Departure - Departure Disposition: Home, Self Care Clinical Impression: Acute cystitis Qualifiers: Hematuria presence: without hematuria Qualified Code(s): N30.00 - Acute cystitis without hematuria Abdominal pain Qualifiers: Abdominal location: lower abdomen, unspecified Qualified Code(s): R10.30 - Lower abdominal pain, unspecified Condition: Stable Record reviewed to determine appropriate education?: Yes Prescriptions: Cefpodoxime Proxetil [Vantin] 100 mg PO Q12H #20 tablet Comments: Sadia was seen today in the emergency department for concerns of increased lower abdominal pain. This is in the setting of a history of recently diagnosed c ancer. She does have a follow-up appointment in 48 hours with [facility] oncology. Do not miss this assessment. Today her screening labs do show a very small white blood cell count elevation of 14,000. Her urine however is suggestive of persistent infection. Please fill the prescription for the Cefpodoxime and begin taking twice daily as directed. If at any point she has fevers, uncontrolled vomiting suddenly severe or different abdominal pain then please return to the emergency department for reevaluation. I encourage you to review her narcotic prescription history and determine if she has been taking the oxycodone as prescribed or if you have other concerns about where this pain medication may be at.
[2021-01-11 12:50] LABS: BASOPHILS # (AUTO) 0.1 10^3/uL (0.0-0.1); BASOPHILS % (AUTO) 0.7 %; EOSINOPHILS # (AUTO) 0.3 10^3/uL (0.0-0.7); EOSINOPHILS % (AUTO) 2.1 %; HCT - HEMATOCRIT 33.4 % (37.0-47.0); HGB - HEMOGLOBIN 10.2 g/dL (12.0-16.0); LYMPHOCYTES # (AUTO) 1.7 10^3/uL (1.5-3.5); LYMPHOCYTES % (AUTO) 11.5 %; MEAN CORPUSCULAR HEMOGLOBIN 25.5 pg (27.0-31.0); MEAN CORPUSCULAR HGB CONC 30.5 g/dL (32.0-36.0); MEAN CORPUSCULAR VOLUME 83.5 fL (81.0-99.0); MEAN PLATELET VOLUME 8.8 fL (7.9-10.8); MONOCYTES # (AUTO) 1.4 10^3/uL (0.0-1.0); MONOCYTES % (AUTO) 9.8 %; NEUTROPHILS % (AUTO) 75.4 %; PLT - PLATELET COUNT 528 10^3/uL (130-450); RED CELL DISTRIBUTION WIDTH 16.1 % (12.0-15.0); WHITE BLOOD COUNT 14.6 x10^3/uL (4.8-10.8)
[2021-01-11 13:04] LABS: ALBUMIN 3.2 g/dL (3.2-5.5); ALBUMIN/GLOBULIN RATIO 0.7 (1.0-2.2); BILIRUBIN,TOTAL 0.6 mg/dL (0.2-1.0); CALCIUM 9.2 mg/dL (8.5-10.3); CREATININE 1.6 mg/dL (0.4-1.0); POTASSIUM 4.1 mmol/L (3.5-5.0)
[2021-01-11 15:02] LABS: GLUCOSE, URINE (UA) NEGATIVE (NEGATIVE); KETONES,URINE (UA) TRACE mg/dL (NEGATIVE); LEUKOCYTE ESTERASE, URINE NEGATIVE (NEGATIVE); NITRITE,URINE POSITIVE (NEGATIVE); OCCULT BLOOD,URINE LARGE (NEGATIVE); PROTEIN,URINE 100 mg/dL (NEGATIVE); UROBILINOGEN,URINE 1 (NORMAL) E.U./dL (NORMAL)
[2021-01-11 15:21] LABS: CLARITY,URINE CLOUDY (CLEAR)
[2021-01-11 15:29] LABS: BILIRUBIN,URINE NEGATIVE (NEGATIVE); ICTOTEST,URINE NEGATIVE
[2021-01-11 15:36] LABS: BACTERIA,URINE Many /HPF (None Seen); CRYSTALS,URINE 6-10 Calcium Oxalate /LPF; RBC,URINE TNTC /HPF (0-5); SQUAMOUS EPITHELIAL CELL,UR FEW Squamous (<= Few)
[2021-01-11 16:27] VITALS: BP 108/53
== END 2021-01-11 16:28 | disposition home or self-care (01) ==
LOC: ED 11:38
DX: N30.00 Acute cystitis without hematuria (principal); R10.30 Lower abdominal pain, unspecified; C67.9 Malignant neoplasm of bladder, unspecified; C78.7 Secondary malignant neoplasm of liver and intrahepatic bile duct; C79.01 Secondary malignant neoplasm of right kidney and renal pelvis; F89 Unspecified disorder of psychological development; I10 Essential (primary) hypertension; E11.9 Type 2 diabetes mellitus without complications
CPT/HCPCS: 36415; 80053; 81001; 83690; 85025; 87086; 96361; 96374; 96375; 99283; J1170; 81003

== ENCOUNTER 2021-01-16 19:56 | Outpatient (CLI) | payer MEDICARE, MEDICAID | END 2021-01-16 19:57 | disposition EMS.NT | LOC: EMS 19:56 | DX: Z03.89 Encounter for observation for other suspected diseases and conditions ruled out (principal) ==

== ENCOUNTER 2021-01-18 05:52 | Outpatient (CLI) | payer MEDICARE, MEDICAID | END 2021-01-18 05:53 | disposition EMS.NT | LOC: EMS 05:52 | DX: R10.9 Unspecified abdominal pain (principal) ==

== ENCOUNTER 2021-01-18 06:41 | Emergency (ER) | payer MEDICARE, MEDICAID ==
--- NOTE | 2021-01-18 07:02 | ED Physician Documentation ---
PD HPI ABD PAIN - Stated complaint Stated Complaint: ABD PX - Chief complaint Chief Complaint: Abd Pain - History obtained from History obtained from: Patient, Family (brother) - History of Present Illness Timing - onset: How many weeks ago Timing - duration: Weeks Timing - details: Gradual onset, Waxing and waning Quality: Cramping, Pain Radiation: Lower back Worsened by: Moving Associated symptoms: Nausea, Diarrhea (pt says some loose stool but only small amount, otherwise not much stool output, and had been constipated prior related to pain meds, per family.), Constipation. No: Fever, Vomiting, Dysuria, Hematuria (not currently but had been having bloody urine.) Recently seen: Clinic (Oncology this past Wed and got infusion immunotherapy for bladder cancer. Patient feeling more tired than prior. Poor PO intake. Still having abd pain. Some urination and small stool overnight, per report of patient. Rx Oxycodone for pain, not really controlling it. Scheduled for virtual visit today) Review of Systems Constitutional: denies: Fever, Chills Nose: denies: Rhinorrhea / runny nose, Congestion Throat: denies: Sore throat Respiratory: denies: Cough GI: reports: Abdominal Pain, Nausea, Constipation. denies: Vomiting : reports: Hematuria. denies: Dysuria Skin: denies: Rash, Lesions Neurologic: reports: Generalized weakness, Confused. 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 HEENT: Chronic vision loss Psych: Depression, Anxiety, Panic attacks, Claustrophobia Musculoskeletal: Osteoarthritis Derm: None - Past Surgical History Past Surgical History: Yes General: Cholecystectomy, Colonoscopy Cardiovascular: Pacemaker - Present Medications Home Medications: Ambulatory Orders Medication Instructions Recorded Confirmed buPROPion [Wellbutrin Sr] 150 mg PO BID 09/08/15 01/18/21 Venlafaxine HCl [Venlafaxine HCl 150 mg PO DAILY 04/08/18 01/18/21 ER] Metoprolol Succinate [Toprol Xl] 50 mg PO DAILY 07/30/20 01/18/21 Ondansetron Odt [Zofran] 4 mg TL Q6H PRN #10 tablet 08/12/20 01/18/21 Cefpodoxime Proxetil [Vantin] 100 mg PO Q12H #20 tablet 01/11/21 01/18/21 Famotidine [Pepcid] 20 mg PO DAILY #20 tablet 01/18/21 Ondansetron Odt [Zofran] 4 mg TL Q6H PRN #20 tablet 01/18/21 - Allergies Allergies/Adverse Reactions: Allergies Allergy/AdvReac Type Severity Reaction Status Date / Time No Known Drug Allergies Allergy Verified 01/18/21 07:02 - Social History Does the pt smoke?: No Smoking Status: Never smoker Does the pt drink ETOH?: No Does the pt have substance abuse?: No - Immunizations Immunizations are current?: Yes - POLST Patient has POLST: No PD ED PE NORMAL - Vitals Vital signs reviewed: Yes - General General: No acute distress (does not appear in pain right now. ), Well developed/nourished. No: Alert and oriented X 3 (sleepy but rousable, able to answer questions simply.) - Neck Neck: Supple, no meningeal sign, No adenopathy - Cardiac Cardiac: RRR, No murmur - Respiratory Respiratory: Clear bilaterally - Abdomen Abdomen: Soft, Non tender. No: Normal bowel sounds (decreased) - Back Back: No: No CVA TTP (some right flank tender. ) - Derm Derm: Warm and dry. No: Normal color (pale) - Extremities Extremities: No tenderness to palpate, No edema, No calf tenderness / cord - Neuro Neuro: No motor deficit (general symmetric weakness. ), No sensory deficit Eye Opening: To Voice Motor: Obeys Commands Verbal: Confused GCS Score: 13 Results - Vitals Vitals: Vital Signs - 24 hr 01/18/21 01/18/21 11:35 12:35 Temperature 37.5 C Heart Rate 90 92 Respiratory 15 18 Rate Blood Pressure 148/75 H 136/79 H O2 Saturation 94 94 Oxygen O2 Source Room air - Labs Labs: Laboratory Tests 01/18/21 01/18/21 01/18/21 07:55 07:55 08:23 WBC 15.5 H RBC 3.66 L Hgb 9.3 L Hct 30.7 L MCV 83.9 MCH 25.4 L MCHC 30.3 L RDW 17.0 H Plt Count 402 MPV 8.9 Neut # (Auto) 12.0 H Lymph # (Auto) 0.9 L [place] # (Auto) 2.1 H Eos # (Auto) 0.2 Baso # (Auto) 0.1 Absolute Nucleated RBC 0.00 Nucleated RBC % 0.0 Manual Slide Review Indicated WBC Morphology NORMAL APPEARANCE Platelet Estimate NORMAL (130-450,000) Platelet Morphology NORMAL APPEARANCE RBC Morph Micro Appear NORMAL APPEARANCE Sodium 135 Potassium 4.3 Chloride 95 L Carbon Dioxide 25 Anion Gap 15.0 H BUN 25 H Creatinine 1.9 H Estimated GFR (MDRD) 27 L Glucose 138 H Calcium 9.0 Magnesium 1.9 Total Bilirubin 1.3 H AST 145 H ALT 62 H Alkaline Phosphatase 516 H Total Protein 7.9 Albumin 2.9 L Globulin 5.0 H Albumin/Globulin Ratio 0.6 L Lipase 47 Urine Color DARK YELLOW Urine Clarity CLOUDY Urine pH 5.0 Ur Specific [place] >=1.030 H Urine Protein 100 H Urine Glucose (UA) NEGATIVE Urine Ketones 15 H Urine Occult Blood LARGE H Urine Nitrite NEGATIVE Urine Bilirubin NEGATIVE Urine Urobilinogen 0.2 (NORMAL) Ur Leukocyte Esterase NEGATIVE Urine RBC 11-25 H Urine WBC 0-3 Ur Squamous Epith Cells FEW Squamous Urine Bacteria Many H Urine Yeast PRESENT Ur Microscopic Review INDICATED Urine Culture Comments INDICATED PD MEDICAL DECISION MAKING - ED course Complexity details: reviewed old records, reviewed results (recent urine culture with no growth.), considered differential (likely some dehydrated with poor PO intake. Does not have port, so will have nursing do peripheral IV. Brother is questioning assisted living or such and goals of care (when to consider Hospice/etc). Currently still active with Oncology. ), d/w patient, d/w educational consultant (Social Work Jeremias talked with patient and her brother about resources for home (aides to augment the current home [facility] nursing and PT) and assisted living/SNF care. Family will contact the SNF/assisted living facilities to seek placement. Considering Palliative/Hospice and SW gave contact info.) Departure - Departure Disposition: 01 Home, Self Care Clinical Impression: Dehydration, General weakness, Kidney neoplasm Anemia Qualifiers: Anemia type: unspecified type Qualified Code(s): D64.9 - Anemia, unspecified Condition: Stable Record reviewed to determine appropriate education?: Yes Instructions: ED Dehydration Follow-Up: Olimpia Jasso PA-C [Primary Care Provider] - Prescriptions: Famotidine [Pepcid] 20 mg PO DAILY #20 tablet Ondansetron Odt [Zofran] 4 mg TL Q6H PRN #20 tablet PRN Reason: Nausea / Vomiting Comments: The urine appears improved. I would finish out the current antibiotics. Encourage frequent fluids. Look into the resources discussed with social work regarding assisted care or assisted living. Also look towards palliative care for other treatments as well. See what your oncologist's has decided regarding other medications for pain. Consider using ondansetron for nausea two or three times daily regularly to see if that combined with famotidine acid reducing medicine daily will help spur some appetite as it could be just some nausea or irritation of the stomach contributing to it. Tylenol 325 mg four times a day regularly for pain. Add pain medicine as direct ed by your oncologist as needed. Discharge Date/Time: 01/18/21 13:04
[2021-01-18] MEDS ORDERED: SODIUM CHLORIDE 0.9% 1,000 ML IV STA ×2 (07:30→09:14)
[2021-01-18] MEDS ORDERED: KETOROLAC 15 MG/ML VIAL IVP STA (07:30)
[2021-01-18] MEDS ORDERED: ONDANSETRON 4 MG/2 ML VIAL IVP STA (07:30)
[2021-01-18 08:04] LABS: BASOPHILS # (AUTO) 0.1 10^3/uL (0.0-0.1); BASOPHILS % (AUTO) 0.7 %; EOSINOPHILS # (AUTO) 0.2 10^3/uL (0.0-0.7); EOSINOPHILS % (AUTO) 1.3 %; HCT - HEMATOCRIT 30.7 % (37.0-47.0); HGB - HEMOGLOBIN 9.3 g/dL (12.0-16.0); LYMPHOCYTES # (AUTO) 0.9 10^3/uL (1.5-3.5); MEAN CORPUSCULAR HEMOGLOBIN 25.4 pg (27.0-31.0); MEAN CORPUSCULAR HGB CONC 30.3 g/dL (32.0-36.0); MEAN CORPUSCULAR VOLUME 83.9 fL (81.0-99.0); MEAN PLATELET VOLUME 8.9 fL (7.9-10.8); MONOCYTES # (AUTO) 2.1 10^3/uL (0.0-1.0); MONOCYTES % (AUTO) 13.8 %; NEUTROPHILS % (AUTO) 77.7 %; PLT - PLATELET COUNT 402 10^3/uL (130-450); RED BLOOD COUNT 3.66 10^6/uL (4.20-5.40); WHITE BLOOD COUNT 15.5 x10^3/uL (4.8-10.8)
[2021-01-18 08:05] LABS: SLIDE REVIEW? Indicated
[2021-01-18 08:24] LABS: ALBUMIN 2.9 g/dL (3.2-5.5); ALBUMIN/GLOBULIN RATIO 0.6 (1.0-2.2); BILIRUBIN,TOTAL 1.3 mg/dL (0.2-1.0); CREATININE 1.9 mg/dL (0.4-1.0); MAGNESIUM 1.9 mg/dL (1.7-2.8); POTASSIUM 4.3 mmol/L (3.5-5.0); TOTAL PROTEIN 7.9 g/dL (6.7-8.2)
[2021-01-18 08:36] LABS: GLUCOSE, URINE (UA) NEGATIVE (NEGATIVE); KETONES,URINE (UA) 15 mg/dL (NEGATIVE); LEUKOCYTE ESTERASE, URINE NEGATIVE (NEGATIVE); NITRITE,URINE NEGATIVE (NEGATIVE); OCCULT BLOOD,URINE LARGE (NEGATIVE); PROTEIN,URINE 100 mg/dL (NEGATIVE); UROBILINOGEN,URINE 0.2 (NORMAL) E.U./dL (NORMAL)
[2021-01-18 08:38] LABS: PLATELET ESTIMATE, MANUAL NORMAL (130-450,000) (NORMAL); PLATELET MORPHOLOGY NORMAL APPEARANCE (NORMAL); RBC MORPHOLOGY (MULTIPLE) NORMAL APPEARANCE (NORMAL)
[2021-01-18 08:38] LABS: CLARITY,URINE CLOUDY (CLEAR)
[2021-01-18 08:39] LABS: WBC MORPHOLOGY (MULTIPLE) NORMAL APPEARANCE (NORMAL)
[2021-01-18 08:41] LABS: BILIRUBIN,URINE NEGATIVE (NEGATIVE); ICTOTEST,URINE NEGATIVE
[2021-01-18 08:52] LABS: BACTERIA,URINE Many /HPF (None Seen); SQUAMOUS EPITHELIAL CELL,UR FEW Squamous (<= Few); WBC,URINE 0-3 /HPF (0-5)
[2021-01-18 08:53] LABS: YEAST,URINE PRESENT
[2021-01-18] MEDS ORDERED: FLUCONAZOLE 100 MG TABLET PO STA (09:14)
--- NOTE | 2021-01-18 10:44 | Ultrasound Report ---
PROCEDURE: Abdomen Limited INDICATIONS: prior CCY; elevated LFTs; eval CBD. TECHNIQUE: Real-time focused scanning was performed of the abdomen, with image documentation. COMPARISON: CT 09/17/2020 FINDINGS: Limited evaluation due to patient inability to perform breath-hold. The liver is heterogeneous in appearance with coarse sonographic echotexture. There is mild nodularit y of the hepatic contour. No discrete hepatic mass identified sonographically. The gallbladder is surgically absent. No intra or extrahepatic biliary ductal dilatation. The visualized common bile duct measures approxim ately 6 to 7 mm. The pancreas was not well visualized sonographically. There is a small atrophic right kidney redemonstrated measuring 8.2 cm in length. There is renal ginger ical thinning with the cortex measuring approximately 0.9 cm. IMPRESSION: 1. No evidence of biliary ductal dilatation. 2. Heterogeneous appearance of the liver with a slightly nodular contour. The findings are suggestive of cirrhosis and correlation is recommended clinically. 3. Small atrophic right kidney redemonstrated. Reviewed by: Pito Frankel MD on 01/18/2021 10:43 AM [facility] Approved by: Pito Frankel MD on 01/18/2021 10:43 AM PST Station ID: [id number]
[2021-01-18 12:36] VITALS: BP 136/79
== END 2021-01-18 13:04 | disposition home or self-care (01) ==
LOC: ED 06:41
DX: E86.0 Dehydration (principal); C67.9 Malignant neoplasm of bladder, unspecified; D64.9 Anemia, unspecified; R53.1 Weakness; R41.0 Disorientation, unspecified; I10 Essential (primary) hypertension; E11.9 Type 2 diabetes mellitus without complications
CPT/HCPCS: 36415; 51701; 51798; 76705; 80053; 81001; 83690; 83735; 85025; 87086; 96361; 96374; 96375; 99283; 99284; A9270; 81003